=== PATIENT | male | born 1965 | race Caucasian/White ===

== ENCOUNTER 2023-02-18 14:22 | Emergency (ER) | payer BC, SELFPAY ==
[2023-02-18 14:35] VITALS: BP 168/99; PULSE 76; RESP 18; TEMP 36.4; O2SAT 97; BMI 27.6
--- NOTE | 2023-02-18 14:42 | XR_ITS ---
[facility] [place] [id number] Patient Name: GERALDINE MUSA MRN: [id number] date: 1965 Sex: M Assigned Patient Location: ER Current Patient Location: ER Accession/Order Number: [id number] Exam Date: 02/18/2023 14:55 Report Date: 02/18/2023 15:27 At the request of: KATJA HALL Procedure: XR tibia fibula RT 2V EXAM: XR foot RT min 3V, XR ankle RT min 3V, XR tibia fibula RT 2V HISTORY: Dropped log on leg COMPARISON: None. TECHNIQUE: 4 views of the lower leg, ankle 3 views of the foot FINDINGS: IMPRESSION: No visualized fracture, dislocation, subluxation or osseous lesion. Moderate degenerative changes of the patella with full and partial thickness cartilage loss. Degenerative irregularities of the medial and lateral femorotibial compartments. The visualized hindfoot and forefoot articulations are unremarkable. Electronically authenticated by: JOVON ARANDA Date: 02/18/2023 15:27
--- NOTE | 2023-02-18 14:42 | XR_ITS ---
[facility] [place] [facility] [id number] Patient Name: GERALDINE MUSA MRN: [id number] date: 1965 Sex: M Assigned Patient Location: ER Current Patient Location: ER Accession/Order Number: [id number] Exam Date: 02/18/2023 14:55 Report Date: 02/18/2023 15:27 At the request of: KATJA HALL Procedure: XR foot RT min 3V EXAM: XR foot RT min 3V, XR ankle RT min 3V, XR tibia fibula RT 2V HISTORY: Dropped log on leg COMPARISON: None. TECHNIQUE: 4 views of the lower leg, ankle 3 views of the foot FINDINGS: IMPRESSION: No visualized fracture, dislocation, subluxation or osseous lesion. Moderate degenerative changes of the patella with full and partial thickness cartilage loss. Degenerative irregularities of the medial and lateral femorotibial compartments. The visualized hindfoot and forefoot articulations are unremarkable. Electronically authenticated by: JOVON ARANDA Date: 02/18/2023 15:27
[2023-02-18 14:43] VITALS: PULSE 69
--- NOTE | 2023-02-18 14:43 | XR_ITS ---
[facility] [place] [id number] Patient Name: GERALDINE MUSA MRN: [id number] date: 1965 Sex: M Assigned Patient Location: ER Current Patient Location: ER Accession/Order Number: [id number] Exam Date: 02/18/2023 14:55 Report Date: 02/18/2023 15:27 At the request of: KATJA HALL Procedure: XR ankle RT min 3V EXAM: XR foot RT min 3V, XR ankle RT min 3V, XR tibia fibula RT 2V HISTORY: Dropped log on leg COMPARISON: None. TECHNIQUE: 4 views of the lower leg, ankle 3 views of the foot FINDINGS: IMPRESSION: No visualized fracture, dislocation, subluxation or osseous lesion. Moderate degenerative changes of the patella with full and partial thickness cartilage loss. Degenerative irregularities of the medial and lateral femorotibial compartments. The visualized hindfoot and forefoot articulations are unremarkable. Electronically authenticated by: JOVON ARANDA Date: 02/18/2023 15:27
--- NOTE | 2023-02-18 15:32 | ED.LOWEXI1 ---
HPI - Extremity Injury (Lower) General Chief Complaint: Extremity Injury, Lower Stated Complaint: RIGHT FOOT INJURY Time Seen by Provider: 02/18/23 14:39 Source: patient Mode of arrival: walk-in Limitations: physical limitation History of Present Illness HPI Narrative: The patient is coming to the ER after he had a ankle and foot injury when the part of the tree that he was cutting fell on his foot, the patient was able to walk with with difficulty and pain He denies any other injury or any head injury The patient tetanus booster is up-to-date Related Data Previous Rx's Medication Instructions Recorded acetaminophen 650 mg 650 mg PO Q8H PRN pain #20 tabs 02/18/23 tablet,extended release (Tylenol 8 Hour) bacitracin zinc 500 unit/gram 1 applic topical DAILY #14 grams 02/18/23 topical ointment prednisone 20 mg tablet 40 mg PO DAILY 5 days #10 tabs 02/18/23 Allergies Allergy/AdvReac Type Severity Reaction Status Date / Time No Known Drug Allergies Allergy Verified 02/18/23 14:34 Review of Systems ROS Status of ROS 10 or more systems reviewed and unremarkable except as noted in history and below [facility] Social History Smoking status: Current every day smoker Exam Narrative Exam Narrative: Nurses notes and vital signs reviewed and patient is not hypoxic. General: Well-appearing and in no apparent distress. Skin: Warm, dry, no pallor noted. No rash. Head: Normocephalic, atraumatic. Neck: Supple, non-tender. Eye: Pupils are equal, round and EOMI. No scleral icterus. Ears, Nose, Mouth, and Throat: TM are clear, no nasal mucosal hypertrophy. Oral mucosa is moist, no posterior oropharynx erythema, uvula is mid-line Cardiovascular: Regular Rate and Rhythm without murmur, gallop or rub. Respiratory: No accessory muscle use or respiratory distress. Lungs are clear to auscultation, no wheezing, rales or rhonchi Chest Wall: no tenderness Back: No midline thoracic or lumbar vertebral tenderness. No CVA tenderness Musculoskeletal: normal ROM there is edema to the medial aspect of the right ankle and mild abrasions the patient had also edema upon palpation of the foot no tenderness upon palpation over the bony prominences GI: Abdomen is soft, non-distended. Normal bowel sounds. No masses appreciated. No tenderness to palpation. No rebound, guarding, or rigidity noted. Neurological: A&O x4. No cranial nerve dysfunction observed. No truncal ataxia. Moves all extremities. Sensation intact. Psychiatric: Cooperative and interactive. Normal mood and affect. Constitutional Vital Signs, click to edit/add: Last Vital Signs Temp 97.6 F 02/18/23 14:35 Pulse 69 02/18/23 14:43 Resp 18 02/18/23 14:35 BP 168/99 H 02/18/23 14:35 Pulse Ox 97 02/18/23 14:35 O2 Del Method Room Air 02/18/23 14:35 Course Vital Signs Vital signs: Vital Signs Temperature 97.6 F 02/18/23 14:35 Pulse Rate 76 02/18/23 14:35 Respiratory Rate 18 02/18/23 14:35 Blood Pressure 168/99 H 02/18/23 14:35 Pulse Oximetry 97 02/18/23 14:35 Oxygen Delivery Method Room Air 02/18/23 14:35 Temperature 97.6 F 02/18/23 14:35 Pulse Rate 69 02/18/23 14:43 Respiratory Rate 18 02/18/23 14:35 Blood Pressure 168/99 H 02/18/23 14:35 Pulse Oximetry 97 02/18/23 14:35 Oxygen Delivery Method Room Air 02/18/23 14:35 MDM - Extremity Injury (Lower) MDM Narrative Medical decision making narrative: X-ray of the foot tibia as well as the ankle showed no acute significant pathology The patient right now be treated supportively with Didier wrap bacitracin as well as Toradol in the ER and will time to go home with He will be referred to orthopedic as outpatient The patient is to follow up with primary care physician in next 2-3 days or to return to the emergency department should any of the signs or symptoms worsen or new symptoms develop. The patient agrees with the following Diagnosis and Treatment plan and the patient will be discharged home. Discharge Plan Discharge Chief Complaint: Extremity Injury, Lower Clinical Impression: Contusion of foot, Ankle contusion Patient Disposition: Home, Self-Care Time of Disposition Decision: 15:41 Mode of Transportation: Private Vehicle Prescriptions / Home Meds: New prednisone 20 mg tablet 40 mg PO DAILY 5 Days Qty: 10 0RF acetaminophen [Tylenol 8 Hour] 650 mg tablet extended release 650 mg PO Q8H PRN (Reason: pain) Qty: 20 0RF bacitracin zinc 500 unit/gram ointment 1 applic topical DAILY Qty: 14 0RF Instructions: Contusion in Adults (ED) Stand Alone Forms: Portal Instructions Referrals: Thierry Xiong MD [Physician] - 1 week Shaikh Torres MD [Primary Care Provider] - 1 week Discharge Date/Time: 02/18/23 15:56
== END 2023-02-18 15:56 | disposition home or self-care (01) ==
PROVIDERS: Emergency Provider Emergency Medicine; PCP Internal Medicine
DX: S90.31XA Contusion of right foot, initial encounter (principal); S90.01XA Contusion of right ankle, initial encounter; W20.8XXA Other cause of strike by thrown, projected or falling object, initial encounter; F17.210 Nicotine dependence, cigarettes, uncomplicated
CPT/HCPCS: 73590; 73610; 73630; 99283

== ENCOUNTER 2023-02-20 06:30 | Emergency (ER) | payer BC, SELFPAY ==
[2023-02-20 06:37] VITALS: BP 130/83; PULSE 81; RESP 16; TEMP 36.6; O2SAT 98; BMI 15.3
--- NOTE | 2023-02-20 06:45 | PC.NURSE ---
patient states he was getting out of the shower around 530 this morning when he slipped and fell hitting lower part of back and left lower back against tub. denies any other injuries. denies head injury, denies LOC. nothing taken for pain prior to arrival.
--- NOTE | 2023-02-20 07:22 | CT_ITS ---
[place] [id number] Patient Name: GERALDINE MUSA MRN: [id number] date: 1965 Sex: M Assigned Patient Location: ER Current Patient Location: Accession/Order Number: [id number] Exam Date: 02/20/2023 07:41 Report Date: 02/20/2023 08:11 At the request of: MARGARITA MURILLO Procedure: CT lumbar spine wo con EXAMINATION: CT lumbar spine wo con HISTORY: fall, on eliquis COMPARISON: No relevant comparison available. TECHNIQUE: Axial, Coronal, and Sagittal CT images were created without I.V. contrast material. Dose reduction techniques were achieved by using automated exposure control and/or adjustment of mA and/or kV according to patient size and/or use of iterative reconstruction technique. FINDINGS: PARASPINAL AREA: Normal with no visible mass. Moderate degenerative changes of the spine BONES: Fracture of the left posterior 12th rib. Fracture of the left L1 and L2 transverse processes. Moderate diffuse degenerative spondylosis and facet osteoarthropathy DISC LEVELS: Moderate multilevel disc space narrowing with endplate sclerosis. Vacuum disc at L2-L3. Suspected multilevel foraminal stenosis CT/CT lumbar spine wo con IMPRESSION: Acute fractures of the left posterior 12th rib, left L1 and L2 transverse processes Electronically authenticated by: JOVON BIRD Date: 02/20/2023 08:11
--- NOTE | 2023-02-20 07:24 | ED.BACK1 ---
HPI - Back Pain/Injury General Chief Complaint: Back Pain/Injury Stated Complaint: BACK PAIN/FALL Time Seen by Provider: 02/20/23 07:20 History of Present Illness HPI Narrative: 57-year-old male presents to the emergency department for pain in his lower back. This morning he fell in the shower and hit his lower back particularly on the left side on the tub. He is on Eliquis because of blood clots. He didn't hit his head or sustain any other injury. Movement makes it worse. There is no radiation. Related Data Previous Rx's Medication Instructions Recorded acetaminophen 650 mg 650 mg PO Q8H PRN pain #20 tabs 02/18/23 tablet,extended release (Tylenol 8 Hour) bacitracin zinc 500 unit/gram 1 applic topical DAILY #14 grams 02/18/23 topical ointment prednisone 20 mg tablet 40 mg PO DAILY 5 days #10 tabs 02/18/23 hydrocodone 7.5 mg-acetaminophen 1 tab PO Q6H PRN pain #30 tabs 02/20/23 325 mg tablet Allergies Allergy/AdvReac Type Severity Reaction Status Date / Time No Known Drug Allergies Allergy Verified 02/20/23 06:41 Review of Systems ROS Narrative A ten point review of systems is negative except as noted above. PFSH PFSH Social History Smoking status: Current every day smoker Exam Narrative Exam Narrative: Nurses note and vital signs reviewed and patient is not hypoxic. General: The patient appears well and in no apparent distress. Patient is resting comfortably on cart. Skin: Warm, dry, no pallor noted. There is no rash noted. Head: Normocephalic, atraumatic Eye: Normal conjunctiva, no drainage Ears, Nose, Mouth, and Throat: oral mucosa is moist. Nares patent. Cardiovascular: Regular Rate and Rhythm Respiratory: Patient is in no distress, no accessory muscle use, lungs are clear to auscultation, no wheezing, rales or rhonchi Back: cervical and thoracic spines are nontender. He has some swelling just to the left of midline in the lower back and there is some tenderness. Skin intact. GI: soft and nontender Musculoskeletal: The patient has no evidence of calf tenderness, no pitting edema, symmetrical pulses noted bilaterally Neurological: A&O, normal speech Psychiatric: Cooperative Constitutional Vital Signs, click to edit/add: Last Vital Signs Temp 97.8 F 02/20/23 06:37 Pulse 81 02/20/23 06:37 Resp 16 02/20/23 06:37 BP 130/83 02/20/23 06:37 Pulse Ox 98 02/20/23 06:37 O2 Del Method Room Air 02/20/23 06:37 Course Vital Signs Vital signs: Vital Signs Temperature 97.8 F 02/20/23 06:37 Pulse Rate 81 02/20/23 06:37 Respiratory Rate 16 02/20/23 06:37 Blood Pressure 130/83 02/20/23 06:37 Pulse Oximetry 98 02/20/23 06:37 Oxygen Delivery Method Room Air 02/20/23 06:37 Temperature 97.8 F 02/20/23 06:37 Pulse Rate 81 02/20/23 06:37 Respiratory Rate 16 02/20/23 06:37 Blood Pressure 130/83 02/20/23 06:37 Pulse Oximetry 98 02/20/23 06:37 Oxygen Delivery Method Room Air 02/20/23 06:37 MDM - Back Pain/Injury MDM Narrative Medical decision making narrative: two lumbar transverse process fractures are identified as well as a rib fracture. Findings are discussed with the patient and the nurse practitioner for Dr. Xiong. Follow-up is arranged for six days from today. He is provided [place] for pain. Treatment diagnosis and follow-up were discussed with the patient. Differential Diagnosis Differential diagnosis: Likely strain of lumbar region and other (lumbar fracture, contusion) Imaging Data . CT lumbar spine: Radiologist's impression: EXAMINATION: CT lumbar spine wo con HISTORY: fall, on eliquis COMPARISON: No relevant comparison available. TECHNIQUE: Axial, Coronal, and Sagittal CT images were created without I.V. contrast material. Dose reduction techniques were achieved by using automated exposure control and/or adjustment of mA and/or kV according to patient size and/or use of iterative reconstruction technique. FINDINGS: PARASPINAL AREA: Normal with no visible mass. Moderate degenerative changes of the spine BONES: Fracture of the left posterior 12th rib. Fracture of the left L1 and L2 transverse processes. Moderate diffuse degenerative spondylosis and facet osteoarthropathy DISC LEVELS: Moderate multilevel disc space narrowing with endplate sclerosis. Vacuum disc at L2-L3. Suspected multilevel foraminal stenosis IMPRESSION: Acute fractures of the left posterior 12th rib, left L1 and L2 transverse processes Electronically authenticated by: JOVON BIRD Date: 02/20/2023 08:11 Discharge Plan Discharge Chief Complaint: Back Pain/Injury Clinical Impression: Closed rib fracture, Fracture of lumbar spine Patient Disposition: Home, Self-Care Time of Disposition Decision: 08:42 Condition: Good Mode of Transportation: Private Vehicle Prescriptions / Home Meds: New hydrocodone-acetaminophen 7.5-325 mg tablet 1 tab PO Q6H PRN (Reason: pain) Qty: 30 0RF No Action prednisone 20 mg tablet 40 mg PO DAILY 5 Days Qty: 10 0RF acetaminophen [Tylenol 8 Hour] 650 mg tablet extended release 650 mg PO Q8H PRN (Reason: pain) Qty: 20 0RF bacitracin zinc 500 unit/gram ointment 1 applic topical DAILY Qty: 14 0RF Instructions: Rib Fracture (ED) Additional Instructions: see Dr. Xiong at 9 AM February 26 Stand Alone Forms: Portal Instructions Referrals: Shaikh Torres MD [Primary Care Provider] - 1 week
== END 2023-02-20 08:56 | disposition home or self-care (01) ==
PROVIDERS: Emergency Provider Emergency Medicine; PCP Internal Medicine
DX: S22.32XA Fracture of one rib, left side, initial encounter for closed fracture (principal); S32.019A Unspecified fracture of first lumbar vertebra, initial encounter for closed fracture; S32.029A Unspecified fracture of second lumbar vertebra, initial encounter for closed fracture; W18.2XXA Fall in (into) shower or empty bathtub, initial encounter; F17.210 Nicotine dependence, cigarettes, uncomplicated
CPT/HCPCS: 72131; 99284

== ENCOUNTER 2023-02-26 10:21 | Outpatient (OUT) | payer BC, SELFPAY ==
--- NOTE | 2023-02-26 10:27 | XR_ITS ---
[address] [id number] Patient Name: GERALDINE MUSA MRN: [id number] date: 1965 Sex: M Assigned Patient Location: [facility] Current Patient Location: [facility] Accession/Order Number: [id number] Exam Date: 02/26/2023 10:30 Report Date: 02/26/2023 12:45 At the request of: BINU SANCHEZ Procedure: XR lumbar spine min 4V Exam: Radiographs: XR lumbar spine min 4V Reason for exam: Lumbar pain M54.50 Comparison: CT scan dated 02/20/2023 XR/XR lumbar spine min 4V IMPRESSION: No radiographically evident lumbar spine fractures. Grade 1 retrolisthesis of L1 on L2, L2 on L3 and L3-L4. Degenerative changes in the lumbar spine with multilevel mild disc space narrowing. Remainder unremarkable. Electronically authenticated by: DORCAS CID Date: 02/26/2023 12:45
== END 2023-02-26 10:22 | disposition home or self-care (01) ==
LOC: RAD 10:23
PROVIDERS: PCP Internal Medicine; Visit Provider Orthopaedic Surgery
DX: M54.50 Low back pain, unspecified (principal)
CPT/HCPCS: 72110

== ENCOUNTER 2023-04-30 16:08 | Outpatient (OUT) | payer BC, SELFPAY ==
[2023-04-30 16:59] LABS: Alanine Aminotransferase 37 U/L (16-63); Albumin Globulin Ratio 1.1; Albumin Level 3.9 g/dL (3.4-5.0); Alkaline Phosphatase 130 U/L (46-116); Anion Gap 12.9; Aspartate Amino Transferase 22 U/L (15-37); BUN Creatinine Ratio 14.6; Bilirubin Total 0.9 mg/dL (0.2-1.0); Calcium 8.8 mg/dL (8.5-10.1); Chloride 104 mmol/L (98-107); Estimated GFR (African America >60 (>=60); Estimated GFR (Non-African Ame >60 (>=60); Globulin 3.4 g/dL; Glucose 88 mg/dL (74-106); Potassium 3.9 mmol/L (3.5-5.1); Sodium 142 mmol/L (136-145); Total Protein 7.3 g/dL (6.4-8.2)
== END 2023-04-30 16:09 | disposition home or self-care (01) ==
LOC: LAB 16:08
PROVIDERS: PCP Internal Medicine; Visit Provider Internal Medicine
DX: I10 Essential (primary) hypertension (principal)
CPT/HCPCS: 36415; 80053

== ENCOUNTER 2024-05-25 16:04 | Observation (INO) | payer BC, SELFPAY ==
[2024-05-25] VITALS (23 sets, daily range): BP systolic 133–163; BP diastolic 74–94; PULSE 70–100; TEMP 36.6–37.1; O2SAT 90–97; BMI 28.2; BMI 28.6
--- OUTSIDE RECORDS SUMMARY | 2024-05-25 16:16 | XMS_ITS | CCD ---
Author Organization [facility] Care Team Providers Care Dishwasher Preparer Name Role Phone SHAIKH TORRES Primary Care Physician REQUEST, NONE LISTED Primary Care Unavaila liza SULLIVAN ., HUAN DURHAM Consulting UnavailMARGARITA Stanford Admitting Unavailable MARGARITA MURILLO Attending Unavailable ANGEL GABRIEL Consulting Unavailable FAWWAD, ALEJANDRO H Consulting Unavailable FAWWAD, ALEJANDRO H Attending Unavailable FAWWAD, ALEJANDRO H Admitting Unavailable FAWWAD, ALEJANDRO H Primary Care Unavailable FAWWAD, ALEJANDRO H Primary Care Unavailable FAWWAD, ALEJANDRO H Consulting Unavailable FAWWAD, ALEJANDRO H Attending Unavailable FAWWAD, ALEJANDRO H Admitting Unavailable FAWWAD, ALEJANDRO Primary Care Unavailable WALLYAMAraceli Admitting Unavailable SALAMAraceli Attending Unavailable SALAM Charles Referring Unavailable FAWWAD, ALEJANDRO Primary Care Unavailable Arlen Littlejohn Attending Unavailable FAWWAD, Attending Unavailable FAWWAD, ALEJANDRO Attending Unavailable Medications Current Medications Medication Drug Class(es) Dates Sig (Normalized) Sig (Original) Eliquis (2 sources) Factor Xa Inhibitor Start: 08-07-2022 Eliquis Refills(s) 0, Blood Thinner Start Date: 08/07/22 Status: Ordered Start: 08-07-2022 Eliquis Refill s(s) 0 Start Date: 08/07/22 Status: Ordered losartan potassium 100 mg oral tablet (2 sources) Angiotensin 2 Receptor Devyn Start: 08-07-2022 losartan 100 mg Tab Refills(s) 0, High blood pressure Start Date: 08/07/22 Status: Ordered rosuvastatin calcium 10 mg oral tablet (2 sources) HMG-CoA Reductase Inhibitor Start: 08-07-2022 rosuvastatin 10 mg T ab Refills(s) 0, High cholesterol Start Date: 08/07/22 Status: Ordered Completed/Discontinued Medications Medication Drug Class(es) Dates Sig (Normalized) Sig (Original) polyethylene glycol 3350 923615 mg / potassium chloride 1480 mg / sodium bicarbonate 5720 mg / sodium chloride 05573 mg powder for oral solution (1 source) Osmotic Laxative Start: 08-07-2022 NuLYTELY Day oral powder for reconstitution See Instructions, 1 EA, Refill(s) 0, Prior to colonoscopy., [employer] #72, 187.9, cm, 08/07/22 15:27:00 EST, Height/Length Dosing, 101.6, kg, 08/07/22 15:27:00 EST, Weight Dosing Start Date: 08/07/22 Status: Ordered Problems Active Problems Problem Classification Problem Date Documented Da te Episodic/Chronic Disorders of lipid metabolism (4 sources) Hyperlipidemia, unspecified; Translations: [HYPERLIPIDEMIA UNSPECIFIED] Onset: 09-11-2022 Chronic Essential hypertension (4 sources) Essential (primary) hypertension; Translations: [ESSENTIAL PRIMARY HYPERTENSION] Onset: 04-17-2022 Chronic Other screening for suspected conditions (not mental disorders or infectious disease) (5 sources) Screening for malignant neoplasm of colon done; Translations: [Encounter for screening for malignant neoplasm of colon] Onset: 04-22-2022 Episodic Unclassified (2 sources) Patient encounter status 08-07-2022 Unclassified (1 source) Acute embolism and thrombosis of right peroneal vein; Translations: [ACUTE EMBOLS AND THROMBOS RT PERONL VN] Onset: 01-17-2022 Past or Other Problems Problem Classification Problem Date Documented Da te Episodic/Chronic Other connective tissue disease (3 sources) Other specified soft tissue disorders; Translations: [OTHER SPEC SOFT TISSUE DISORDERS] Onset: 01-16-2022 Episodic Phlebitis; thrombophlebitis and thromboembolism (2 sources) Acute embolism and thrombosis of right popliteal vein; Translations: [Acute embolism and thrombosis of right femoral vein] Onset: 01-17-2022 Episodic Results Test Name Value Interpretation Reference Range Facility [facility] 10-23-2022 Consent [id number]#1. 00CD:127 Normal [facility] [place] Discharge Instructionson Discharge Instructions [id number]. 00CD:127 Normal [facility] Main OR Intraoperative Recor don 10-23-2022 Main OR Intraoperative Record IntraOp Document Type FT Summary Primary Physician: Araceli AGGARWAL MD Finalized Date/Time: 10/23/22 07:35:16 Pt. Name: DIMPLE GERALDINE Kennedy/Sex: 1965 Male Med Rec #: [id number] Physician: Araceli AGGARWAL MD Financial #: [id number] Pt. Type: O Room/Bed: / Admit/Disch: 10/20/22 06:58:07 - 10/20/22 23:59:59 Institution: Case Times FT Entry 1 Patient Times In Room 10/20/22 08:10:00 Out Room 10/20/22 08:28:00 Procedure Times Start 10/20/22 08:13:00 Stop 10/20/22 08:26:00 Anesthesia Times Start 10/20/22 08:10:00 Stop 10/20/22 08:28:00 Time at [place] 10/20/22 08:16:00 Last Modified By: Maribel GANNON, Kassidy 10/20/22 08:28:26 General Comments: 10/23/22 Chart opened to review and send charges [facility]oth CSFA Case Attendance FT Entry 1 Entry 2 Entry 3 Case Attendee Ilya Rendon DO, Omkar López RN, Deyanira Yin Role Performed Anesthesiologist of Dumper Operator - Primary Scrub - Primary Record Time In 10/20/22 08:10:00 10/20/22 08:10:00 10/20/22 08:10:00 Time Out 10/20/22 08:28:00 10/20/22 08:28:00 10/20/22 08:28:00 Procedure COLONOSCOPY(.) COLONOSCOPY(.) COLONOSCOPY(.) Comments Last Modified By: Maribel GANNON, Kassidy López RN, Kassidy Montesinos RN 10/20/22 08:28:28 10/20/22 08:28:28 10/20/22 08:28:28 Entry 4 Entry 5 Case Attendee Funmi Villa MD, Maher Role Performed Staff - Other Surgeon - Primary Time In 10/20/22 08:10:00 10/20/22 08:10:00 Time Out 10/20/22 08:28:00 10/20/22 08:28:00 Procedure COLONOSCOPY(.) COLONOSCOPY(.) Comments help in room Last Modified By: Kassidy López RN, RN, Angela 10/20/22 08:28:28 10/20/22 08:28:28 Perioperative Protocols FT Pre-Care Text: Implements protective measures prior to operative or invasive procedure, confirms identity before the operative or invasive procedure, verifies operative procedure, surgical site, and laterality Entry 1 Procedure(s) COLONOSCOPY(.) Patient Identity Birthday, ID Band Verified (select at Check, Patient least 2): Participation Consents / H and P Anesthesia Consent, Operative Site N/A Verified HandP, Surgery/Procedure Marking Verified Consent Surgical Site No Laterality Verified n/a Verified Procedure Verified Yes Correct Patient Yes Position Verified Availability Equipment, Medication Prep Dry n/a Verified (If Applicable) PreOp Antibiotic No Time Out Omkar Caraballo Jr, DO, Given Participants Kassidy López RN, SALAM MD, Elias Charles Kirstyn K, Funmi Villa Time Out Complete 10/20/22 08:14:00 Outcomes Met? Yes Last Modified By: Kassidy López RN 10/20/22 08:13:23 Post-Care Text: The patient is free from signs and symptoms of injury caused by extraneous objects Allergy Information FT Pre-Care Text: Verifies allergies Entry 1 Allergies Reviewed? Yes Allergies Reviewed Self/Patient With Outcomes Met? Yes Last Modified By: Kassidy López RN 10/20/22 07:41:28 Post-Care Text: The patient received appropriate medication(s) safely administered during the perioperative period Surgical Procedures FT Entry 1 Procedure Description Procedure COLONOSCOPY Modifiers . Surgeon Description COLONOSCOPY with ascending colon polypectomy Primary Procedure Yes Primary Surgeon Araceli AGGARWAL MD Start 10/20/22 08:13:00 Stop 10/20/22 08:26:00 Anesthesia Type General Surgical Service Gastroenterology Wound Class 2 - Clean-Contaminated Last Modified By: Kassidy López RN 10/20/22 08:28:34 General Case Data FT Pre-Care Text: Classifies surgical wound, implements aseptic technique, initiates traffic control Entry 1 Case Information OR ENDO 1 FT Case Level Level 2 Wound Class 2 - Clean-Contaminated Specialty Gastroenterology ASA Class 2 Preop Diagnosis SCREENING FOR COLON Postop Same As Preop No CANCER Postop Diagnosis Ascending colon polyp Outcomes Met? Yes and internal hemorrhoids Last Modified By: Kassidy López RN 10/20/22 08:28:08 Post-Care Text: The patient is free from signs and symptoms of infection Skin Assessment (Pre Procedure) FT Pre-Care Text: Implements protective measures to prevent skin/ tissue injury due to thermal or mechanical sources Evaluates for signs and symptoms of physical injury to skin and tissue Entry 1 Skin Integrity Intact, [place], Warm, and Skin Abnormality No Dry Outcomes Met? Yes Last Modified By: Kassidy López RN 10/20/22 07:41:56 Post-Care Text: The patient is free from signs and symptoms of injury caused by extraneous objects Patient Positioning FT Pre-Care Text: Identifies physical alterations that require additional precautions for procedure-specific positioning, verifies presence of prosthetics or corrective devices, positions the patient, evaluates the patient for signs and symptoms of injury as a result of positioning Entry 1 Procedure COLONOSCOPY(.) Body Position Lateral, right side up Feet Uncrossed? Yes Left Arm Position Resting at Si (more content not included)... Normal [facility] [place] Progress Note-Physicianon Progress Note-Physician Patient: GERALDINE MUSA Age: 57 years Sex: Male : 1965 Associated Diagnoses: None Author: Omkar Caraballo Jr, DO Preoperative Information Anesthesia Preop Info: Time patient last ate or drank 10/20/2022 00:00:00. Anesthesia history: Patient history: None. Family history+: None. Informed consent: Signed by patient. Re-evaluation prior to induction: Initial evaluation reviewed: No significant change. Review of Systems Eye: Negative except as documented in history of present illness. Ear/Nose/Mouth/Throat: Negative except as documented in history of present illness. Respiratory: Negative except as documented in history of present illness. Cardiovascular: Negative except as documented in history of present illness. Musculoskeletal: Negative except as documented in history of present illness. Neurologic: Negative except as documented in history of present illness. Health Status Allergies: Allergic Reactions (Selected) No Known Allergies No Known Medication Allergies Problem list: All Problems Screen for colon cancer / SNOMED CT [id number] / Confirmed Histories Procedure history: No active procedure history items have been selected or recorded. Social History Social & Psychosocial Habits Tobacco 08/07/2022 Tobacco Use: Never (less than 100 in l Smokeless tobacco use: Current vaping or e-cigar Type: Vaping . Physical Examination Airway: Mallampati classification: II (soft palate, fauces, uvula visible). Respiratory: adequate air exchange. Cardiovascular: Regular rhythm. Plan [place] [employer]esthesiologists (ASA) physical status classification: Class II. Anesthetic Preoperative Plan: Anesthesia General. [facility] Comment on above: Result Comment: Elec tronically Signed By: Omkar Caraballo Jr, DO\.br\Date and Time Signed: 10/21/22 09:06 EDT Progress Note-Physician Patient: GERALDINE MUSA Age: 57 years Sex: Male : 1965 Associated Diagnoses: None Author: Omkar Caraballo Jr, DO Postoperative Information Postoperative disposition: Postoperative disposition: To PACU. Optimetrix number: Optimetrix number [phone]. Anesthetic utilized: General. Health Status Allergies: Allergic Reactions (Selected) No Known Allergies No Known Medication Allergies Physical Examination Vital Signs 10/20/2022 8:55 EDT Heart Rate Monitored 64 bpm Respiratory Rate Monitored 20 br/min Systolic Blood Pressure 145 mmHg HI Diastolic Blood Pressure 90 mmHg Mean Arterial Pressure, Cuff 108 mmHg SpO2 96 % 10/20/2022 8:45 EDT Heart Rate Monitored 80 bpm Respiratory Rate Monitored 12 br/min Systolic Blood Pressure 140 mmHg Diastolic Blood Pressure 98 mmHg HI SpO2 97 % 10/20/2022 8:40 EDT Heart Rate Monitored 64 bpm Respiratory Rate Monitored 19 br/min Systolic Blood Pressure 135 mmHg Diastolic Blood Pressure 86 mmHg Mean Arterial Pressure, Cuff 102 mmHg SpO2 96 % 10/20/2022 8:35 EDT Heart Rate Monitored 72 bpm Respiratory Rate Monitored 18 br/min Systolic Blood Pressure 129 mmHg Diastolic Blood Pressure 76 mmHg Mean Arterial Pressure, Cuff 94 mmHg SpO2 95 % 10/20/2022 8:30 EDT Temperature Temporal Artery 36.4 DegC Heart Rate Monitored 75 bpm Respiratory Rate Monitored 18 br/min Systolic Blood Pressure 131 mmHg Diastolic Blood Pressure 79 mmHg Blood Pressure Location Left arm Mean Arterial Pressure, Cuff 96 mmHg SpO2 96 % Pain Assessment: Controlled. General: Awake, Alert, Appropriate. Respiratory: Adequate air exchange. Cardiovascular: Stable, Normal peripheral perfusion. Neurological: Normal sensory function, Normal motor function. Assessment Anesthetic outcome No anesthetic complications noted. Adequate pain relief. able to void without difficulty, able to ambulate with assist, tolerating PO intake, no N/V. Review / Management Condition: Stable. Plan Transfer/Discharge: Transfer/Discharge Discharge when meets criteria ( To home ). Normal [facility] Comment on above: Result Comment: Elec tronically Signed By: Omkar Caraballo Jr, DO\.jitendra\Date and Time Signed: 10/21/22 09:05 EDT Consent for Treatmenton 10-09 Consent for Treatment [id number] 0CD:127 Normal [facility] [place] Discharge Instructionson Discharge Instructions SARAIGilberto GERALDINE :1965 Visit Date:10/20/2022 Inpatient Discharge Instructions Your Care Team Admitting Physician - Araceli AGGARWAL MD Referring Physician - Araceli AGGARWAL MD Reason for Your Visit SCREENING FOR COLON CANCER Your Diagnosis Encounter for screening for malignant neoplasm of rectum Screening for colorectal cancer Tests Performed Pathology Tissue Exam -- Results Pending -- Please visit your patient portal for your results or contact your primary care physician. This Is Your Medications List apixaban (Eliquis) losartan (losartan 100 mg Tab) rosuvastatin (rosuvastatin 10 mg Tab) Discharge Vitals Temperature (Temporal Artery) 36.4 ?C Heart Rate (Monitored) 75 Respiratory Rate 18 Blood Pressure 131/79 Height 187.9 cm Weight 101.6 kg BMI 28.78 What to do next Instructions From Your Doctor Event Name Event Result Discharge Instructions Freetext Restart Eliquis today Discharge Activity Resume normal activities in 24 hours Discharge Restrictions No driving for 24 hrs, Do not operate machinery or tools, Do not make important decisions for 24 hours Discharge Diet(s) Regular Pharm[facility] [place] Discharge Instructions Discharge Instructions New Follow Up Appointments after Discharge Follow Up with MARIEL WILLIAM, TAMMIE Charles, [facility] When: Within 1 to 2 weeks Comments: Office will call with date and time of follow-up appt. Where: [address] [place] [address] Follow Up with Araceli AGGARWAL When: Comments: Office will call date and time of follow-up appt. Where: [address] [place] [address] Business (1) Medications What When Instructions Next Dose Unchanged apixaban (Eliquis) Unchanged losartan (losartan 100 mg Tab) Unchanged rosuvastatin (rosuvastatin 10 mg Tab) Test Results No qualifying data available. Allergies No Known Allergies No Known Medication Allergies Problems Ongoing - Any problem that you are currently receiving treatment for. Screen for colon cancer Education Materials Colonoscopy Care After Surgery Please read the instructions outlined below and refer to this sheet in the next few weeks. These discharge instructions provide you with general information on caring for yourself after you leave the hospital. Your doctor may also give you specific instructions. While your treatment has been planned according to the most current medical practices available, unavoidable complications occasionally occur. If you have any problems or questions after discharge, please call your doctor. ACTIVITY You may resume your regular activity, but move at a slower pace for the next 24 hours. Take frequent rest periods for the next 24 hours. Walking will help get rid of the air and reduce the bloated feeling in your abdomen (belly). No driving for 24 hours (because of the anesthesia (medicine) used during the test). You may shower. Do not sign any important legal documents or operate any machinery for 24 hours (because of the anesthesia used during the test). NUTRITION Drink plenty of fluids. You may resume your normal diet as instructed by your doctor. Begin with a light meal and progress to your normal diet. Heavy or fried foods are harder to digest and may make you feel nauseated (sick to your stomach). Avoid alcoholic beverages for 24 hours or as instructed. MEDICATIONS You may resume your normal medications unless your doctor tells you otherwise. WHAT YOU CAN EXPECT TODAY Some feelings of bloating in the abdomen. Passage of more gas than usual. Spotting of blood in your stool or on the toilet paper. FOLLOW-UP Your doctor will discuss the results of your test with you. SEEK IMMEDIATE MEDICAL ATTENTION IF: There is more than a spotting of blood in your stool. There is abdominal distention (your abdomen is swollen). There is vomiting. You have a temperature over 101.5 F. There is abdominal pain or discomfort that is severe or gets worse throughout the day. Common Emergency Awareness Tips IS IT A STROKE? Act FAST and Check for these signs: FACE Does the face look uneven? ARM Does one arm drift down? SPEECH Does their speech sound strange? TIME Call at any sign of stroke Heart Attack Signs Chest discomfort: Most heart attacks involve discomfort in the center of the chest and lasts more than a few minutes, or goes away and comes back. It can feel like uncomfortable pressure, squeezing, fullness or pain. Discomfort in upper body: Symptoms can include pain or discomfort in one or both arms, back, neck, jaw or stomach. Shortness of breath: With or without discomfort. Other signs: Breaking out in a cold sweat, nausea, or lightheaded. Remember, MINUTES DO MATTER. If you experience any of these heart attack warning signs, call to (more content not included)... Normal [facility] [place] Comment on above: Result Comment: Elec tronically Signed By: Edson GANNON, Rosa\.br\Date and Time Signed: 10/20/22 08:38 EDT Endoscopic Procedure Report - Otheron 10-20-2022 Endoscopic Procedure Report - Other Patient: GERALDINE MUSA Age: 57 years Sex: Male : 1965 Associated Diagnoses: None Author: Araceli AGGARWAL MD Pre-Procedure Procedure Date 10/20/2022 08:28:00 . Procedure Type: Colonoscopy with removal of tumor(s), polyp(s), or other lesion(s) by cold snare technique. Procedure provider Performed by Araceli Aggarwal MD. Current history and physical Documented on chart. Colorectal neoplasm risk assessment Average risk. Informed Consent After discussing the rationale, risks and benefits, and alternatives to this procedure, the patient provided signed consent for the procedure. Pre-procedure diagnosis: Age 50 years or over. Medications Anticoagulant/antiplat elet None. ASA Classification: Class II. . Procedure The procedure was performed in the hospital. Rectal exam was performed and was normal with no masses palpated. The patient was positioned in the left lateral decubitus position and a digital rectal exam was performed.. Endoscope type used was an adult-size. The endoscope was lubricated then introduced through the anus. The scope was advanced to the cecum verified by photographing the appendiceal orifice, verified by photographing the ileocecal valve, verified by transillumination. No difficulties encountered during the procedure. The bowel preparation quality was adequate (see polyps greater than or equal to 6 millimeters). The patient tolerated the procedure well. Findings 1. Diminutive polyp, 2 mm, in the ascending, removed completely with cold snare 2. Small nonbleeding internal hemorrhoids Images Procedure images: [id number]__ [id number]__ [id number]__ [id number] . Post-Procedure Complications: none. Estimated blood loss: none. Specimens: sent to pathology. Devices/ implants: none left in place. Impression and Plan 1. Diminutive polyp, 2 mm, in the ascending, removed completely with cold snare 2. Small nonbleeding internal hemorrhoids Recommendations: Repeat colonoscopy:: Pending pathology results, 7 yrs. Follow-up:: Clinic follow-up in 1-2 weeks. Diet:: Resume previous diet. Medication resumption:: Continue current medications. Return to activities:: After 24 hours. Normal [facility] [place] Comment on above: Result Comment: Elec tronically Signed By: MARIEL WILLIAM, Araceli\.br\Date and Time Signed: 10/20/22 08:28 EDT Other Comment: Anna gomez Attachment - attachment storage system not supported [id number] Can be viewed in source systemMissing Attachment - attachment storage system not supported [id number] Can be viewed in source systemMissing Attachment - attachment storage system not supported [id number] Can be viewed in source system Inpatient Patient Summaryon 10-20-2022 Inpatient Patient Summary [place] [id number] [facility] Clinical Discharge Instructions PERSON INFORMATION Name: GERALDINE MUSA PHYSICIANS Admitting Physician: Araceli AGGARWAL MD Attending Physician: Araceli AGGARWAL MD PCP: SHAIKH TORRES Discharge Diagnosis: Encounter for screening for malignant neoplasm of rectum; Screening for colorectal cancer Comment: PATIENT EDUCATION INFORMATION Instructions: Medication Leaflets: Follow up: MEDICATION LIST Medications to Continue with No Changes Other Medications apixaban (Eliquis) losartan (losartan 100 mg Tab) rosuvastatin (rosuvastatin 10 mg Tab) Comment: Normal [facility] Main OR PACU I Recordon 10-09 Main OR PACU I Record PACU Phase I Docum ent Type FT Summary Primary Physician: Araceli AGGARWAL MD Finalized Date/Time: 10/20/22 14:32:06 Pt. Name: GERALDINE MUSA /Sex: 1965 Male Med Rec #: [id number] Physician: Araceli AGGARWAL MD Financial #: [id number] Pt. Type: O Room/Bed: / Admit/Disch: 10/20/22 06:58:07 - Institution: Case Times PACU I FT Pre-Care Text: Identifies barriers to communication and implements measures to provide psychological support Develops individualized plan of care, and ensures continuity of care Maintains patient's dignity and privacy, and maintains patient confidentiality Identifies and reports philosophical, cultural, and spiritual beliefs and values Identifies individual values and wishes concerning care Implements aseptic technique, and administers prescribed antibiotic therapy and immunizing agents as ordered Evaluates postoperative tissue perfusion Implements thermoregulation measures, and monitors body temperature Evaluates postoperative respiratory status Evaluates postoperative cardiac status Evaluates postoperative neurological status Assesses pain control, collaborated in initiating patient-controlled analgesia and implements alternative methods of pain control Verifies allergies, administers prescribed medications and solutions, evaluates response to medications Entry 1 In PACU I 10/20/22 08:30:00 Discharge from PACU 10/20/22 09:00:00 I Outcomes Met? Yes Last Modified By: Rosa Sandhu RN 10/20/22 14:31:33 Post-Care Text: The patient demonstrates knowledge of the expected response to the operative or invasive procedure The patient's care is consistent with the individualized perioperative plan of care The patient's right to privacy is maintained The patient's value system, lifestyle, ethnicity, and culture are considered, respected, and incorporated into the perioperative plan of care The patient participates in decisions affecting his or her perioperative plan of care The patient is free from signs and symptoms of infection The patient has wound/tissue perfusion consistent with or improved from baseline levels established preoperatively The patient is at or returning to normothermia at the conclusion of the immediate postoperative period The patient's respiratory function is consistent with or improved from baseline levels established preoperatively The patient's cardiovascular status is consistent with or improved from baseline levels established preoperatively The patient's cardiovascular status is consistent with or improved from baseline levels established preoperatively The patient demonstrates and/or reports adequate pain control throughout the perioperative period The patient received appropriate medication(s), safely administered during the perioperative period Acuity Level PACU I FT Entry 1 Start Time 10/20/22 08:30:00 Stop Time 10/20/22 09:00:00 Acuity Level Acuity Level I Last Modified By: Rosa Sandhu RN 10/20/22 14:32:01 Finalized By: Rosa Sandhu RN Document Signatures Signed By: Rosa Sandhu RN 10/20/22 14:32 Normal [facility] Main OR Preoperative Recordo n 10-20-2022 Main OR Preoperative Record Holding Area Document Type FT Summary Primary Physician: Araceli AGGARWAL MD Finalized Date/Time: 10/20/22 07:20:42 Pt. Name: DIMPLEGERALDINE/Sex: 1965 Male Med Rec #: [id number] Physician: Araceli AGGARWAL MD Financial #: [id number] Pt. Type: O Room/Bed: / Admit/Disch: 10/20/22 06:58:07 - Institution: Case Times Holding FT Pre-Care Text: Verifies consent for planned procedure, identifies individual values and wishes concerning care, includes family members in perioperative teaching Secures patient's records' belongings, and valuables, maintains patient's dignity and privacy, and maintains patient confidentiality Entry 1 In Holding 10/20/22 07:10:00 Outcomes Met? Yes Last Modified By: Billie Schmitt RN 10/20/22 07:19:19 Post-Care Text: The patient participates in decisions affecting his or her perioperative plan of care The patient's right to privacy is maintained Surgery Checklist FT Entry 1 Patient Birthday, ID Band Procedure History and Physical, Identification: Check, Patient Verification: Surgical Consent, With Participation Family, With Patient NPO after Midnight: Yes Personal Items: Jewelry Personal Items x1 ring, clothes Limitations: no Comment: Complaints of Pain: No Pain Comment: no Operative Site n/a Marked By: n/a Marking: Availability Equipment Verified: Does Patient Smoke Yes If Yes to Smoking. vapes daily Cigars or Cigarettes. How much per day? Patient states Yes Comment - Adult Rosa- postop adult Supervision supervision available Case Cancelled in No Holding Area see comments below for reason Last Modified By: Billie Schmitt RN 10/20/22 07:20:37 General Comments: 100% prep in last night, patient tolerated well, last bowel movement clear yellow./JAGDEEP ZAIDI Finalized By: Billie Schmitt RN Document Signatures Signed By: Billie Schmitt RN 10/20/22 07:20 Normal [facility] Monitor Recordon 10-20-2022 Monitor Record [id number]. 00CD:127 Normal [facility] Monitor Record [id number]. 00CD:127 Normal [facility] Outpatient Surgery Discharge Instructionon 10-20-2022 Outpatient Surgery Discharge Instruction [address] [address] Patient Discharge Instructions PERSON INFORMATION Name: GERALDINE MUSA Date of : 1965 Current Date: 10/20/2022 08:28:01 PHYSICIANS Admitting Physician: MARIEL WILLIAM, Charles Discharge Diagnosis: Encounter for screening for malignant neoplasm of rectum; Screening for colorectal cancer GERALDINE MUSA has been given the following list of follow-up instructions, prescriptions, and patient education materials: PATIENT FOLLOW-UP INFORMATION Diet: Regular Discharge Activity: Resume normal activities in 24 hours Discharge Restrictions: No driving for 24 hrs, Do not operate machinery or tools, Do not make important decisions for 24 hours IF UNABLE TO CONTACT YOUR PHYSICIAN AND YOU FEEL IT IS AN EMERGENCY, GO TO THE NEAREST EMERGENCY ROOM OR CALL 911 DIMPLE Mckenzie JOHN, have received the attached patient education materials/instructions and have verbalized understanding: May we do a follow up call? Yes No I was present when discharge instructions were given Patient Signature Date Clinican/Nurse Signature ___ Date Follow up: Pharmacy Information: [facility] [place] You may receive a survey from [employer] asking you to rate your care experience. Your feedback is important and will help us understand what we do well and how we can improve the quality of care we provide to you, your loved ones and our community. It?s an honor to serve you. Thank you for choosing [facility] HERE ARE THE MEDICATION CHANGES THAT OCCURRED DURING YOUR HOSPITAL STAY Medications to Continue with No Changes Other Medications apixaban (Eliquis) losartan (losartan 100 mg Tab) rosuvastatin (rosuvastatin 10 mg Tab) PATIENT EDUCATION INFORMATION Instructions: Medication Leaflets: Normal [facility] Patient Education - Texton 0 10-20-2022 Patient Education - Text Colonoscopy Care After Surgery Please read the instructions outlined below and refer to this sheet in the next few weeks. These discharge instructions provide you with general information on caring for yourself after you leave the hospital. Your doctor may also give you specific instructions. While your treatment has been planned according to the most current medical practices available, unavoidable complications occasionally occur. If you have any problems or questions after discharge, please call your doctor. ACTIVITY You may resume your regular activity, but move at a slower pace for the next 24 hours. Take frequent rest periods for the next 24 hours. Walking will help get rid of the air and reduce the bloated feeling in your abdomen (belly). No driving for 24 hours (because of the anesthesia (medicine) used during the test). You may shower. Do not sign any important legal documents or operate any machinery for 24 hours (because of the anesthesia used during the test). NUTRITION Drink plenty of fluids. You may resume your normal diet as instructed by your doctor. Begin with a light meal and progress to your normal diet. Heavy or fried foods are harder to digest and may make you feel nauseated (sick to your stomach). Avoid alcoholic beverages for 24 hours or as instructed. MEDICATIONS You may resume your normal medications unless your doctor tells you otherwise. WHAT YOU CAN EXPECT TODAY Some feelings of bloating in the abdomen. Passage of more gas than usual. Spotting of blood in your stool or on the toilet paper. FOLLOW-UP Your doctor will discuss the results of your test with you. SEEK IMMEDIATE MEDICAL ATTENTION IF: There is more than a spotting of blood in your stool. There is abdominal distention (your abdomen is swollen). There is vomiting. You have a temperature over 101.5 F. There is abdominal pain or discomfort that is severe or gets worse throughout the day. Normal [facility] LIPID PROFILEon 09-11-2022 CHOL-HDL RATIO NORM SEE BELOW Normal [facility] Comment on above: Result Comment: 3.3 - 4.4 LOW RISK 4.4 - 7.1 AVERAGE RISK 7.1 - 11.0 MODERATE RISK >11.0 HIGH RISK Performed By: #### L IPID #### [facility] [address] [address] [address] Svetlana Golden Cholesterol [Mass/Vol] 154 mg/dL Normal <=200 [facility] Comment on above: Performed By: #### L IPID #### [facility] [address] [address] [address] Svetlana Golden Cholesterol in HDL [Mass/Vol] 52 mg/dL Normal 40-60 [facility] Comment on above: Performed By: #### L IPID #### [facility] [address] [address] [address] Svetlana Golden Cholesterol in LDL [Mass/Vol] 90.6 mg/dL Normal [facility] Comment on above: Performed By: #### L IPID #### [facility] [address] [address] [address] Svetlana Golden Cholesterol.total/Cho lesterol in HDL [Mass ratio] 3.0 {ratio} Normal [facility] Comment on above: Performed By: #### L IPID #### [facility] [address] [place] [address] Dr. Svetlana Golden HDL NORMAL > or = 60 mg/dl - LO W CARDIOVASCULAR RISK <40 mg/dl - HIGH CARDIOVASCULAR RISK Normal [facility] Comment on above: Performed By: #### L IPID #### [facility] [address] [address] [address] Svetlana Golden LDL CALC NORMAL SEE BELOW Normal [facility] Comment on above: Result Comment: <100 mg/dl OPTIMAL 100 - 129 mg/dl NEAR OR ABOVE OPTIMAL 130 - 159 mg/dl BORDERLINE HIGH 160 - 189 mg/dl HIGH >190 mg/dl VERY HIGH Performed By: #### L IPID #### [facility] [address] [address] [address] Svetlana Golden Triglyceride [Mass/Vol] 57 mg/dL Normal <=150 [facility] Comment on above: Performed By: #### L IPID #### [facility] [address] [address] [address] Svetlana Golden VLDL CALC 11.4 mg/dL Normal [facility] Comment on above: Performed By: #### L IPID #### [facility] [address] [address] [address] Svetlana Golden Consent for Procedure/Surger yon 08-08-2022 Consent for Procedure/Surgery [id number]. 00CD:127 Normal [facility] Ambulatory Visit Summaryon 0 08-07-2022 Ambulatory Visit Summary GERALDINE MUSA :1965 Visit Date:08/07/2022 Ambulatory Visit Instructions Your Diagnosis Screen for colon cancer Your Care Team Attending Physician - Arlen Littlejohn CNP Primary Care Physician - SHAIKH TORRES This Is Your Medications List polyethylene glycol 3350 with electrolytes (NuLYTELY Day oral powder for reconstitution) Contact prescribing physician if questions or concerns apixaban (Eliquis) losartan (losartan 100 mg Tab) rosuvastatin (rosuvastatin 10 mg Tab) Discharge Vitals Temperature (Temporal Artery) 36.5 ?C Heart Rate (Peripheral) 72 Blood Pressure 144/78 Height 187.9 cm Height 74 in Weight 101.6 kg Weight 223.52 lb BMI 28.78 What to do next You Need to Schedule the Following Appointments Follow Up with Arlen Littlejohn CNP When: Within 1 to 2 weeks Comments: Following colonoscopy. Where: Medications What How Much When Instructions New polyethylene glycol 3350 with electrolytes (NuLYTELY Day oral powder for reconstitution) See instructions Prior to colonoscopy. Pickup at [facility] Unchanged apixaban (Eliquis) Contact prescribing physician if questions or concerns Unchanged losartan (losartan 100 mg Tab) Contact prescribing physician if questions or concerns Unchanged rosuvastatin (rosuvastatin 10 mg Tab) Contact prescribing physician if questions or concerns Pharmacy Information [facility]: [address] [place], [place] [id number] [phone] Medications and Immunizations Administered Not Given influenza virus vaccine, inactivated, Patient Refuses Allergies No active allergies Problems Ongoing - Any problem that you are currently receiving treatment for. Screen for colon cancer Education Materials Colonoscopy, Adult A colonoscopy is an exam to look at the entire large intestine. During the exam, a lubricated, flexible tube that has a camera on the end of it is inserted into the anus and then passed into the rectum, colon, and other parts of the large intestine. You may have a colonoscopy as a part of normal colorectal screening or if you have certain symptoms, such as: ? Lack of red blood cells (anemia). ? Diarrhea that does not go away. ? Abdominal pain. ? Blood in your stool (feces). A colonoscopy can help screen for and diagnose medical problems, including: ? Tumors. ? Polyps. ? Inflammation. ? Areas of bleeding. Tell a health care provider about: ? Any allergies you have. ? All medicines you are taking, including vitamins, herbs, eye drops, creams, and qdyx-yxo-rutumqk medicines. ? Any problems you or family members have had with anesthetic medicines. ? Any blood disorders you have. ? Any surgeries you have had. ? Any medical conditions you have. ? Any problems you have had passing stool. What are the risks? Generally, this is a safe procedure. However, problems may occur, including: ? Bleeding. ? A tear in the intestine. ? A reaction to medicines given during the exam. ? Infection (rare). What happens before the procedure? Eating and drinking restrictions Follow instructions from your health care provider about eating and drinking, which may include: ? A few days before the procedure ? follow a low-fiber diet. Avoid nuts, seeds, dried fruit, raw fruits, and vegetables. ? 1?3 days before the procedure ? follow a clear liquid diet. Drink only clear liquids, such as clear broth or bouillon, black coffee or tea, clear juice, clear soft drinks or sports drinks, gelatin dessert, and popsicles. Avoid any liquids that contain red or purple dye. ? On the day of the procedure ? do not eat or drink anything starting 2 hours before the procedure, or within the time period that your health care provider recommends. Up to 2 hours before the procedure, you may continue to drink clear liquids, such as water or clear fruit juice. Bowel prep If you were prescribed an oral bowel prep to clean out your colon: ? Take it as told by your health care provider. Starting the day before your procedure, you will need to drink a large amount of medicated liquid. The liquid will cause you to have multiple loose stools until your stool is almost clear or light green. ? If your skin or anus gets irritated from diarrhea, you may use these to relieve the irritation: ? Medicated wipes, such as adult wet wipes with aloe and vitamin E. ? A skin-soothing product like petroleum jelly. ? If you vomit while drinking the bowel prep, take a break for up to 60 minutes and then begin the bowel prep again. If vomiting continues and you cannot take the bowel prep without vomiting, call your health care provider. ? To clean out your colon, you may also be given: ? Laxative medicines. ? Instructions about how to use an enema. General instructions ? Ask your health care provider about: ? Randall (more content not included)... Normal [facility] Gastroenterology Office/Clin ic Noteon 08-07-2022 Gastroenterology Office/Clinic Note Chief Complaint Colonoscopy HPI Staff This is a 57 year old male who presents today for a screening colonoscopy. This will be his first colonoscopy. History of Present Illness Patient is a 57-year-old male who presents for referral from his PCP?Dr. Torres for colonoscopy. PMH of HTN, HLD- managed by patient's PCP. Labs from outside record revealed labs 01/2022 revealed normal H/H, normal BUN and creatinine. Family history of colon cancer: Denies. Family history of colon polyps: Denies. Personal history of colon cancer: Denies. Personal history of colon polyps: Denies. Takes eliquis BID for reported hx. DVT in right leg- will request hold time recommendations of Eliquis from prescribing provider prior to colonoscopy. During today's visit, patient reports he has never had a colonoscopy before. Denies change in bowel habits, black/bloody stools, nausea/vomiting, fevers/chills, rectal pain/bleeding, and denies unintentional weight loss. Denies having any GI complaints. Review of Systems PHQ Score Initial Depression Screen Score: 0 ROS - Provider Constitutional: no fever, no chills. Skin: no Jaundice. ENMT: Denies dysphagia and heartburn. Respiratory: no shortness of breath. Cardiovascular: no chest pain. Gastrointestinal: no nausea, no vomiting, no diarrhea, no GI bleeding. Physical Exam Vitals & Measurements T: 36.5 ?C(Temporal Artery) HR: 72(Peripheral) BP: 144/78 HT: 74 in HT: 187.9 cm WT: 101.6 kg WT: 223.52 lb BMI: 28.78 General: Well developed, well nourished, in no acute distress Head: Normocephalic/atraumat ic Lungs: Normal respiratory effort and clear to auscultation Cardio: Regular rate and rhythm, normal S1 and S2, no murmur, no rub Abdomen: Soft, non-distended, non-tender. Normoactive bowel sounds present in all 4 abdominal quadrants, bilaterally. Mental Status: Alert and oriented x3. Normal mood and affect Assessment/Plan 1. Screen for colon cancer (Z12.11: Encounter for screening for malignant neoplasm of colon) Has never had colonoscopy before. Ordered Colonoscopy. Takes eliquis BID- will request hold time recommendations of Eliquis from prescribing provider prior to colonoscopy. Ordered: Colonoscopy (Hospital Procedure) Orders: polyethylene glycol 3350 with electrolytes, See Instructions, 1 EA, Refill(s) 0, Prior to colonoscopy., [facility], 187.9, cm, 08/07/22 15:27:00 EST, Height/Length Dosing, 101.6, kg, 08/07/22 15:27:00 EST, Weight Dosing Follow-up With When Contact Information Arlen Littlejohn CNP Within 1 to 2 weeks Additional Instructions: Following colonoscopy. Patient Education Colonoscopy, Adult Problem List/Past Medical History Ongoing Screen for colon cancer Historical No qualifying data Medications Eliquis losartan 100 mg Tab NuLYTELY Day oral powder for reconstitution, See Instructions rosuvastatin 10 mg Tab Allergies No active allergies Social History Tobacco Never (less than 100 in lifetime) Tobacco Use:. Current vaping or e-cigarette use Smokeless Tobacco Use:. Vaping, 08/07/2022 Family History Emphysema: Mother. Immunizations Vaccine Date Status Comments influenza virus vaccine, inactivated - Not Given Patient Refuses Normal [facility] Comment on above: Result Comment: Elec tronically Signed By: Arlen Littlejohn CNP\.br\Date and Time Signed: 08/07/22 15:40 EST Lab Reportson 08-07-2022 Lab Reports [id number] .00CD:127 Normal [facility] Lab Reports [id number] 0CD:127 Normal [facility] Patient Educationon 08-07-19 23 Patient Education Radiology Colonoscopy, Adult A colonoscopy is an exam to look at the entire large intestine. During the exam, a lubricated, flexible tube that has a camera on the end of it is inserted into the anus and then passed into the rectum, colon, and other parts of the large intestine. You may have a colonoscopy as a part of normal colorectal screening or if you have certain symptoms, such as: ? Lack of red blood cells (anemia). ? Diarrhea that does not go away. ? Abdominal pain. ? Blood in your stool (feces). A colonoscopy can help screen for and diagnose medical problems, including: ? Tumors. ? Polyps. ? Inflammation. ? Areas of bleeding. Tell a health care provider about: ? Any allergies you have. ? All medicines you are taking, including vitamins, herbs, eye drops, creams, and qttn-vba-kzohyej medicines. ? Any problems you or family members have had with anesthetic medicines. ? Any blood disorders you have. ? Any surgeries you have had. ? Any medical conditions you have. ? Any problems you have had passing stool. What are the risks? Generally, this is a safe procedure. However, problems may occur, including: ? Bleeding. ? A tear in the intestine. ? A reaction to medicines given during the exam. ? Infection (rare). What happens before the procedure? Eating and drinking restrictions Follow instructions from your health care provider about eating and drinking, which may include: ? A few days before the procedure ? follow a low-fiber diet. Avoid nuts, seeds, dried fruit, raw fruits, and vegetables. ? 1?3 days before the procedure ? follow a clear liquid diet. Drink only clear liquids, such as clear broth or bouillon, black coffee or tea, clear juice, clear soft drinks or sports drinks, gelatin dessert, and popsicles. Avoid any liquids that contain red or purple dye. ? On the day of the procedure ? do not eat or drink anything starting 2 hours before the procedure, or within the time period that your health care provider recommends. Up to 2 hours before the procedure, you may continue to drink clear liquids, such as water or clear fruit juice. Bowel prep If you were prescribed an oral bowel prep to clean out your colon: ? Take it as told by your health care provider. Starting the day before your procedure, you will need to drink a large amount of medicated liquid. The liquid will cause you to have multiple loose stools until your stool is almost clear or light green. ? If your skin or anus gets irritated from diarrhea, you may use these to relieve the irritation: ? Medicated wipes, such as adult wet wipes with aloe and vitamin E. ? A skin-soothing product like petroleum jelly. ? If you vomit while drinking the bowel prep, take a break for up to 60 minutes and then begin the bowel prep again. If vomiting continues and you cannot take the bowel prep without vomiting, call your health care provider. ? To clean out your colon, you may also be given: ? Laxative medicines. ? Instructions about how to use an enema. General instructions ? Ask your health care provider about: ? Changing or stopping your regular medicines or supplements. This is especially important if you are taking iron supplements, diabetes medicines, or blood thinners. ? Taking medicines such as aspirin and ibuprofen. These medicines can thin your blood. Do not take these medicines before the procedure if your health care provider tells you not to. ? Plan to have someone take you home from the hospital or clinic. What happens during the procedure? ? An IV may be inserted into one of your veins. ? You will be given medicine to help you relax (sedative). ? To reduce your risk of infection: ? Your health care team will wash or sanitize their hands. ? Your anal area will be washed with soap. ? You will be asked to lie on your side with your knees bent. ? Your health care provider will lubricate a long, thin, flexible tube. The tube will have a camera and a light on the end. ? The tube will be inserted into your anus. ? The tube will be gently eased through your rectum and colon. ? Air will be delivered into your colon to keep it open. You may feel some pressure or cramping. ? The camera will be used to take images during the procedure. ? A small tissue sample may be removed to be examined under a microscope (biopsy). ? If small polyps are found, your health care provider may remove them and have them checked for cancer cells. ? When the exam is done, the tube will be removed. The procedure may vary among health care providers and hospitals. What happens after the procedure? ? Your blood pressure, heart rate, breathing rate, and blood oxygen level will be monitored until the medicines you were given have worn off. ? Do not drive for 24 hours after the exam. ? You may have a small amount of blood in your stool. ? You may pass gas and have mild abdominal cramping or bloating due to the air t (more content not included)... Normal [facility] Physician Referralon 023 Physician Referral [id number] 0CD:127 Normal [facility] GLYCOHEMOGLOBIN A1Con 2021 ADA RECOMMENDATION SEE BELOW Normal [facility] Comment on above: Result Comment: ADA RECOMMENDED LIMIT 4.0 - 6.0 ADA THERAPEUTIC TARGET < 7.0 ACTION SUGGESTED > 7.0 Performed By: #### A 1C #### [facility] [address] [place] [address] Dr. Svetlana Golden Glucose [Mass/Vol] 120 mg/dL Normal [facility] Comment on above: Performed By: #### A 1C #### [facility] [address] [place] [address] Dr. Svetlana Golden HbA1c (Bld) [Mass fraction] 5.8 % Normal 4.5-6.2 [facility] Comment on above: Performed By: #### A 1C #### [facility] [address] [place] [address] Dr. Svetlana Golden LIPID PROFILEon 04-17-2022 CHOL-HDL RATIO NORM SEE BELOW Normal [facility] Comment on above: Result Comment: 3.3 - 4.4 LOW RISK 4.4 - 7.1 AVERAGE RISK 7.1 - 11.0 MODERATE RISK >11.0 HIGH RISK Performed By: #### B MP, LIPID #### [facility] [address] [place] [address] Dr. Svetlana Golden Cholesterol [Mass/Vol] 243 mg/dL Critically high <=200 [facility] Comment on above: Performed By: #### B MP, LIPID #### [facility] [place] [address] Dr. Svetlana Golden Cholesterol in HDL [Mass/Vol] 53 mg/dL Normal 40-60 [facility] Comment on above: Performed By: #### B MP, LIPID #### [facility] [address] [address] [address] Svetlana Golden Cholesterol in LDL [Mass/Vol] 172.6 mg/dL Normal [facility] Comment on above: Performed By: #### B MP, LIPID #### [facility] [address] [address] [address] Svetlana Golden Cholesterol.total/Cho lesterol in HDL [Mass ratio] 4.6 {ratio} Normal [facility] Comment on above: Performed By: #### B MP, LIPID #### [facility] [address] [address] [address] Svetlana Golden HDL NORMAL > or = 60 mg/dl - LO W CARDIOVASCULAR RISK <40 mg/dl - HIGH CARDIOVASCULAR RISK Normal [facility] Comment on above: Performed By: #### B MP, LIPID #### [facility] [address] [place] [address] Dr. Svetlana Golden LDL CALC NORMAL SEE BELOW Normal The [facility] Comment on above: Result Comment: <100 mg/dl OPTIMAL 100 - 129 mg/dl NEAR OR ABOVE OPTIMAL 130 - 159 mg/dl BORDERLINE HIGH 160 - 189 mg/dl HIGH >190 mg/dl VERY HIGH Performed By: #### B MP, LIPID #### [facility] [address] [address] [address] Svetlana Golden Triglyceride [Mass/Vol] 87 mg/dL Normal <=150 [facility] Comment on above: Performed By: #### B MP, LIPID #### [facility] [address] [address] [address] Svetlana Golden VLDL CALC 17.4 mg/dL Normal [facility] Comment on above: Performed By: #### B MP, LIPID #### [facility] [address] [address] [address] Svetlana Golden PROF CHEM 8 (BAS METB)on Anion gap [Moles/Vol] 7.6 mmol/L Normal [facility] Comment on above: Performed By: #### B MP, LIPID #### [facility] [address] [address] [address] Svetlana Golden Calcium [Mass/Vol] 8.8 mg/dL Normal 8.5-10.1 [facility] Comment on above: Performed By: #### B MP, LIPID #### [facility] [address] [address] [address] Svetlana Golden Chloride [Moles/Vol] 105 mmol/L Normal 98-107 [facility] Comment on above: Performed By: #### B MP, LIPID #### [facility] [address] [address] [address] Svetlana Golden CO2 [Moles/Vol] 28.0 mmol/L Normal 21.0-32.0 [facility] Comment on above: Performed By: #### B MP, LIPID #### [facility] [address] [address] [address] Svetlana Golden Creatinine [Mass/Vol] 1.00 mg/dL Normal 0.70-1.30 [facility] Comment on above: Performed By: #### B MP, LIPID #### [facility] [address] [address] [address] Svetlana Golden EGFR-AF ISRAELI >60 Normal >=60 [facility] Comment on above: Performed By: #### B MP, LIPID #### [facility] [address] [address] [address] Svetlana Golden EGFR-NON AF ISRAELI >60 Normal >=60 [facility] Comment on above: Performed By: #### B MP, LIPID #### [facility] [address] [address] [address] Svetlana Golden Glucose [Mass/Vol] 99 mg/dL Normal 74-[address] [facility] Comment on above: Performed By: #### B MP, LIPID #### [facility] [address] [address] [address] Svetlana Golden Potassium [Moles/Vol] 3.6 mmol/L Normal 3.5-5.1 [facility] Comment on above: Performed By: #### B MP, LIPID #### [facility] [address] [address] [address] Svetlana Golden Sodium [Moles/Vol] 137 mmol/L Normal 136-[address] [facility] Comment on above: Performed By: #### B MP, LIPID #### [facility] [address] [place] [address] Dr. Svetlana Golden Urea nitrogen [Mass/Vol] 18.0 mg/dL Normal 7.0-18.0 [facility] Comment on above: Performed By: #### B MP, LIPID #### [facility] [address] [place] [address] Dr. Svetlana Golden Urea nitrogen/Creatinine [Mass ratio] 18.0 mg/mg Normal [facility] Comment on above: Performed By: #### B MP, LIPID #### [facility] [address] [place] [address] Dr. Svetlana Golden CBC AUTO DIFFon 01-16-2022 BASO # 0.1 103/ul Normal 0.0-0.1 [facility] Comment on above: Performed By: #### C BC #### [facility] [address] [place] [address] Dr. Svetlana Golden Basophils/100 WBC (Bld) 0.8 % Normal 0.2-2.0 [facility] Comment on above: Performed By: #### C BC #### [facility] [address] [place] [address] Dr. Svetlana Golden EO # 0.2 103/ul Normal 0.0-0.7 [facility] Comment on above: Performed By: #### C BC #### [facility] [address] [place] [address] Dr. Svetlana Golden Eosinophils/100 WBC (Bld) 2.5 % Normal 0.9-7.0 [facility] Comment on above: Performed By: #### C BC #### [facility] [address] [place] [address] Dr. Svetlana Golden Erythrocyte distribution width (RBC) [Ratio] 12.4 % Normal 11.0-15.0 [facility] Comment on above: Performed By: #### C BC #### [facility] [address] [place] [address] Dr. Svetlana Golden Hematocrit (Bld) [Volume fraction] 46.4 % Normal 42.0-54.0 [facility] Comment on above: Performed By: #### C BC #### [facility] [address] [address] [address] Svetlana Golden Hemoglobin (Bld) [Mass/Vol] 15.4 g/dL Normal 14.0-18.0 [facility] Comment on above: Performed By: #### C BC #### [facility] [address] [address] [address] Svetlana Golden IG # 0.01 10e3/ul Normal 0.00-0.03 [facility] Comment on above: Performed By: #### C BC #### [facility] [address] [place] [address] Dr. Svetlana Golden IG % 0.1 % Normal 0.0-0.5 [facility] Comment on above: Performed By: #### C BC #### [facility] [address] [place] [address] Dr. Svetlana Golden LYMPH # 2.0 103/ul Normal 1.2-3.8 [facility] Comment on above: Performed By: #### C BC #### [facility] [address] [place] [address] Dr. Svetlana Golden Lymphocytes/100 WBC (Bld) 27.0 % Normal 20.5-60.0 [facility] Comment on above: Performed By: #### C BC #### [facility] [address] [place] [address] Dr. Svetlana Golden MANUAL DIFF REQ NO Normal [facility] Comment on above: Performed By: #### C BC #### [facility] [address] [place] [address] Dr. Svetlana Golden MCH (RBC) [Entitic mass] 31.9 pg Normal 25.9-34.0 [facility] Comment on above: Performed By: #### C BC #### [facility] [address] [place] [address] Dr. Svetlana Golden MCHC (RBC) [Mass/Vol] 33.2 g/dL Normal 29.9-35.2 [facility] Comment on above: Performed By: #### C BC #### [facility] [address] [address] [address] Svetlana Golden MCV (RBC) [Entitic vol] 96.1 fL Critically high 80.0-94.0 [facility] Comment on above: Performed By: #### C BC #### [facility] [address] [address] [address] Svetlana Golden MONO # 0.7 103/ul Normal 0.3-0.8 [facility] Comment on above: Performed By: #### C BC #### [facility] [address] [address] [address] Svetlana Golden Monocytes/100 WBC (Bld) 9.2 % Normal 1.7-12.0 [facility] Comment on above: Performed By: #### C BC #### [facility] [address] [place] [address] Dr. Svetlana Golden NEUT # 4.5 103/ul Normal 1.4-6.5 [facility] Comment on above: Performed By: #### C BC #### [facility] [address] [place] [address] Dr. Svetlana Golden Neutrophils/100 WBC (Bld) 60.4 % Normal 43.0-75.0 [facility] Comment on above: Performed By: #### C BC #### [facility] [address] [place] [address] Dr. Svetlana Golden Platelet mean volume (Bld) [Entitic vol] 9.7 fL Normal 9.5-13.5 [facility] Comment on above: Performed By: #### C BC #### [facility] [address] [place] [address] Dr. Svetlana Golden PLT 312 103/ul Normal 150-450 [facility] Comment on above: Performed By: #### C BC #### [facility] [address] [place] [address] Dr. Svetlana Golden RBC 4.83 106/ul Normal 4.70-6.10 [facility] Comment on above: Performed By: #### C BC #### [facility] [address] [address] [address] Svetlana Golden WBC 7.5 103/ul Normal 4.0-11.0 [facility] Comment on above: Performed By: #### C BC #### [facility] [address] [place] [address] Dr. Svetlana Golden PROF CHEM 8 (BAS METB)on Anion gap [Moles/Vol] 12.1 mmol/L Normal [facility] Comment on above: Performed By: #### B MP #### [facility] [address] [place] [address] Dr. Svetlana Golden Calcium [Mass/Vol] 9.2 mg/dL Normal 8.5-10.1 [facility] Comment on above: Performed By: #### B MP #### [facility] [address] [place] [address] Dr. Svetlana Golden Chloride [Moles/Vol] 107 mmol/L Normal 98-107 [facility] Comment on above: Performed By: #### B MP #### [facility] [address] [place] [address] Dr. Svetlana Golden CO2 [Moles/Vol] 29.8 mmol/L Normal 21.0-32.0 [facility] Comment on above: Performed By: #### B MP #### [facility] [address] [place] [address] Dr. vSetlana Golden Creatinine [Mass/Vol] 0.95 mg/dL Normal 0.70-1.30 [facility] Comment on above: Performed By: #### B MP #### [facility] [address] [place] [address] Dr. Svetlana Golden EGFR-AF ISRAELI >60 Normal >=60 [facility] Comment on above: Performed By: #### B MP #### [facility] [address] [place] [address] Dr. Svetlana Golden EGFR-NON AF ISRAELI >60 Normal >=60 [facility] Comment on above: Performed By: #### B MP #### [facility] [address] [place] [address] Dr. Svetlana Golden Glucose [Mass/Vol] 97 mg/dL Normal 74-106 [facility] Comment on above: Performed By: #### B MP #### [facility] [address] [place] [address] Dr. Svetlana Golden Potassium [Moles/Vol] 4.9 mmol/L Normal 3.5-5.1 [facility] Comment on above: Performed By: #### B MP #### [facility] [address] [address] [address] Svetlana Golden Sodium [Moles/Vol] 144 mmol/L Normal 136-145 [facility] Comment on above: Performed By: #### B MP #### [facility] [address] [place] [address] Dr. Svetlana Golden Urea nitrogen [Mass/Vol] 13.0 mg/dL Normal 7.0-18.0 [facility] Comment on above: Performed By: #### B MP #### [facility] [address] [place] [address] Dr. Svetlana Golden Urea nitrogen/Creatinine [Mass ratio] 13.7 mg/mg Normal [facility] Comment on above: Performed By: #### B MP #### [facility] [address] [place] [address] Dr. Svetlana Golden PROTIMEon 01-16-2022 INR Coag (PPP) [Relative time] 1.00 {INR} Normal [facility] Comment on above: Performed By: #### P TT, PT #### [facility] [address] [place] [address] Dr. Svetlana Golden INR GUIDELINES SEE BELOW Normal [facility] Comment on above: Result Comment: TOMY RED INR: 2.0 - 3.0 CONDITIONS NOT LISTED BELOW 2.5 - 3.5 FOR PROSTHETIC HEART VALVE REPLACEMENT 2.5 - 3.5 RECURRENT THROMBOSIS Performed By: #### P TT, PT #### [facility] [address] [place] [address] Dr. Svetlana Golden PT Coag (PPP) [Time] 10.8 s Normal 9.0-11.6 [facility] Comment on above: Performed By: #### P TT, PT #### [facility] [address] [place], [place] [address] Dr. Svetlana Golden PTTon 01-16-2022 aPTT Coag (Bld) [Time] 27.1 s Normal 22.3-36.2 [facility] Comment on above: Performed By: #### P TT, PT #### [facility] [address] [place], [place] [address] Dr. Svetlana Golden US YOLI DOP LEG RTon 01-17-20 22 US YOLI DOP LEG RT EXAM: US YOLI DOP LEG RT HISTORY: This is a 56-year-old with right lower leg and foot pain for 4 days. COMPARISON: 05/23/2021 TECHNIQUE: Multiple sonographic images of the deep veins of the right lower extremity were obtained, supplemented with Doppler. FINDINGS: The deep veins of the right lower extremity are fairly well-visualized the groin to the mid calf. No filling defect is clearly identified to indicate a thrombus. There is abnormal partial compression of the distal femoral, popliteal and peroneal veins compatible with deep vein thrombosis. There is little or no flow in these veins. There is normal compression augmentation of flow in the more proximal deep veins. Flow is identified in the saphenous vein. IMPRESSION: The findings are consistent with deep vein thrombosis involving the distal femoral, popliteal and peroneal veins. The patient had a prior study on 05/23/2021 which reported no evidence of deep vein thrombosis, as well and thrombosis in the greater saphenous vein. Electronically authenticated by: ANGEL GABRIEL Date: 2022-01-16 17:35 Normal [facility] Vital Signs Date Time Vital Sign Value Performing Clinician Facility 10-20-2022 08:55-0400 Diastolic blood pressure 90 mm[Hg] [facility] 10-20-2022 08:55-0400 Heart rate 64 /min [facility] 10-20-2022 08:55-0400 Mean blood pressure 108 [facility] 10-20-2022 08:55-0400 Respiratory rate 20 /min Charles SALAM [facility] 10-20-2022 08:55-0400 SaO2% (BldA) [Mass fraction] 96 % Charles SALAM [facility] 10-20-2022 08:55-0400 Systolic blood pressure 145 mm[Hg] Charles SALAM [facility] 10-20-2022 08:45-0400 Diastolic blood pressure 98 mm[Hg] Charles SALAM [facility] 10-20-2022 08:45-0400 Heart rate 80 /min Charles SALAM [facility] 10-20-2022 08:45-0400 Respiratory rate 12 /min Charles SALAM [facility] 10-20-2022 08:45-0400 SaO2% (BldA) [Mass fraction] 97 % Charles SALAM [facility] 10-20-2022 08:45-0400 Systolic blood pressure 140 mm[Hg] Charles SALAM [facility] 10-20-2022 08:40-0400 Diastolic blood pressure 86 mm[Hg] Charles SALAM [facility] 10-20-2022 08:40-0400 Heart rate 64 /min Charles SALAM [facility] 10-20-2022 08:40-0400 Mean blood pressure 102 mm[Hg] Charles SALAM [facility] 10-20-2022 08:40-0400 Respiratory rate 19 /min Charles SALAM [facility] 10-20-2022 08:40-0400 SaO2% (BldA) [Mass fraction] 96 % Charles SALAM [facility] 10-20-2022 08:40-0400 Systolic blood pressure 135 mm[Hg] Charles SALAM [facility] 10-20-2022 08:35-0400 Mean blood pressure 94 mm[Hg] Charles SALAM [facility] 10-20-2022 08:30-0400 Blood Pressure Location Charles SALAM [facility] 10-20-2022 08:30-0400 Body temperature 97.52 [degF] Charles SALAM [facility] 10-20-2022 08:20-0400 Respiratory rate 16 /min Charles SALAM [facility] 10-20-2022 08:15-0400 Respiratory rate 17 /min Charles SALAM [facility] 10-20-2022 07:20-0400 Blood Pressure Location Charles SALAM [facility] 10-20-2022 07:20-0400 Body temperature 98.78 [degF] Charles SALAM [facility] 08-07-2022 15:23-0500 Blood Pressure Location Arlencat EppersonEron [facility] 08-07-2022 15:23-0500 Body temperature 97.7 [degF] Arlen Eron [facility] 08-07-2022 15:23-0500 Diastolic blood pressure 78 mm[Hg] Arlen Eron [facility] 08-07-2022 15:23-0500 Heart rate 72 /min Arlen Eppersonmetz [facility] 08-07-2022 15:23-0500 Systolic blood pressure 144 mm[Hg] Arlen Littlejohn [facility] Encounters Encounter Date Encounter Type Care Provider Facility Start: 11-12-2023 End: 11-12-2023 ambulatory ALEJANDRO FAWWAD Not Available Start: 05-08-2023 End: 05-08-2023 ambulatory ALEJANDRO FAWWAD Not Available Start: 10-20-2022 End: 10-21-2022 ambulatory ALEJANDRO FAWWAD Facility:[facility] Start: 10-20-2022 End: 10-20-2022 Patient encounter procedure Araceli AGGARWAL [facility] Start: 09-11-2022 End: 09-12-2022 ambulatory ALEJANDRO H FAWWAD Facility: Start: 08-07-2022 End: 08-08-2022 ambulatory ALEJANDRO FAWWAD Facility:[facility] Start: 08-07-2022 End: 08-07-2022 Patient encounter procedure Arlen Littlejohn [facility] Start: 07-11-2022 [facility] Start: 04-17-2022 End: 04-18-2022 ambulatory ALEJANDRO H FAWWAD Facility: Start: 01-16-2022 End: 01-16-[address] NONE LISTED REQUEST Facility: Procedures Date Procedure Procedure Detail Performing Clinician Start: 10-20-2022 Colonoscopic polypectomy Araceli AGGARWAL Start: 10-20-2022 Colonoscopy Araceli Rg Immunizations Immunization Date Immunization Notes Care Provider Fa cility NEGATED: Highlighted row has not occurred!08-07-2022 influenza virus vaccine, unspecified formulation Arlen Littlejohn [facility] Payers Date Payer Category Payer Unknown [id number] 1965 Unknown [id number] 2.16.84 [id number] 1965 Unknown [id number] 2.16.84 [id number] 1965 Unknown [id number] 2.16.84 [id number] 1965 Unknown [id number] 2.16.8 [id number] 1965 Unknown [id number] 2.16.8 [id number] 1965 Unknown [id number] 2.16.84 [id number] 1965 Unknown [id number] 1959 Unknown [id number] Social History Date Type Detail Facility Start: 08-07-2022 Tobacco smoking status Never s moked tobacco (finding) [facility] Sex Assigned At Male [facility] Functional Status Date Assessment Result Facility 10-20-2022 Functional Status N/A [facility] 08-07-2022 Functional Status N/A [facility] History and physical note 10-23-2022 Note Date & Type Note Facility 10-23-2022 Note [id number] 3#[id number]:[id number] [facility] Discharge instructions 10-20-2022 Note Date & Type Note Facility 10-20-2022 Hospital Discharg e instructions Patient Education 10/20/2022 08:36:46 Colonoscopy, Care After Surgery Salam (CUSTOM) Colonoscopy Care After Surgery Please read the instructions outlined below and refer to this sheet in the next few weeks. These discharge instructions provide you with general information on caring for yourself after you leave the hospital. Your doctor may also give you specific instructions. While your treatment has been planned according to the most current medical practices available, unavoidable complications occasionally occur. If you have any problems or questions after discharge, please call your doctor. ACTIVITY You may resume your regular activity, but move at a slower pace for the next 24 hours. Take frequent rest periods for the next 24 hours. Walking will help get rid of the air and reduce the bloated feeling in your abdomen (belly). No driving for 24 hours (because of the anesthesia (medicine) used during the test). You may shower. Do not sign any important legal documents or operate any machinery for 24 hours (because of the anesthesia used during the test). NUTRITION Drink plenty of fluids. You may resume your normal diet as instructed by your doctor. Begin with a light meal and progress to your normal diet. Heavy or fried foods are harder to digest and may make you feel nauseated (sick to your stomach). Avoid alcoholic beverages for 24 hours or as instructed. MEDICATIONS You may resume your normal medications unless your doctor tells you otherwise. WHAT YOU CAN EXPECT TODAY Some feelings of bloating in the abdomen. Passage of more gas than usual. Spotting of blood in your stool or on the toilet paper. FOLLOW-UP Your doctor will discuss the results of your test with you. SEEK IMMEDIATE MEDICAL ATTENTION IF: There is more than a spotting of blood in your stool. There is abdominal distention (your abdomen is swollen). There is vomiting. You have a temperature over 101.5 F. There is abdominal pain or discomfort that is severe or gets worse throughout the day. Follow Up Care 08/07/2022 16:03:41 With:MARIEL WILLIAM, Araceli, TAMMIE, [facility] Address: [address] [place] [phone] When:1 to 2 weeks Comments:Office will call with date and time of follow-up appt. With:Araceli AGGARWAL Address: [address] [place] [phone] Business (1) When: Unknown Comments:Office will call date and time of follow-up appt. [facility] Discharge instructions 08-07-2022 Note Date & Type Note Facility 08-07-2022 Hospital Discharg e instructions Patient Education 08/07/2022 15:34:27 Colonoscopy, Adult Colonoscopy, Adult A colonoscopy is an exam to look at the entire large intestine. During the exam, a lubricated, flexible tube that has a camera on the end of it is inserted into the anus and then passed into the rectum, colon, and other parts of the large intestine. You may have a colonoscopy as a part of normal colorectal screening or if you have certain symptoms, such as: Lack of red blood cells (anemia). Diarrhea that does not go away. Abdominal pain. Blood in your stool (feces). A colonoscopy can help screen for and diagnose medical problems, including: Tumors. Polyps. Inflammation. Areas of bleeding. Tell a health care provider about: Any allergies you have. All medicines you are taking, including vitamins, herbs, eye drops, creams, and [id number] medicines. Any problems you or family members have had with anesthetic medicines. Any blood disorders you have. Any surgeries you have had. Any medical conditions you have. Any problems you have had passing stool. What are the risks? Generally, this is a safe procedure. However, problems may occur, including: Bleeding. A tear in the intestine. A reaction to medicines given during the exam. Infection (rare). What happens before the procedure? Eating and drinking restrictions Follow instructions from your health care provider about eating and drinking, which may include: A few days before the procedure follow a low-fiber diet. Avoid nuts, seeds, dried fruit, raw fruits, and vegetables. 1 3 days before the procedure follow a clear liquid diet. Drink only clear liquids, such as clear broth or bouillon, black coffee or tea, clear juice, clear soft drinks or sports drinks, gelatin dessert, and popsicles. Avoid any liquids that contain red or purple dye. On the day of the procedure do not eat or drink anything starting 2 hours before the procedure, or within the time period that your health care provider recommends. Up to 2 hours before the procedure, you may continue to drink clear liquids, such as water or clear fruit juice. Bowel prep If you were prescribed an oral bowel prep to clean out your colon: Take it as told by your health care provider. Starting the day before your procedure, you will need to drink a large amount of medicated liquid. The liquid will cause you to have multiple loose stools until your stool is almost clear or light green. If your skin or anus gets irritated from diarrhea, you may use these to relieve the irritation: ?Medicated wipes, such as adult wet wipes with aloe and vitamin E. ?A skin-soothing product like petroleum jelly. If you vomit while drinking the bowel prep, take a break for up to 60 minutes and then begin the bowel prep again. If vomiting continues and you cannot take the bowel prep without vomiting, call your health care provider. To clean out your colon, you may also be given: ?Laxative medicines. ?Instructions about how to use an enema. General instructions Ask your health care provider about: ?Changing or stopping your regular medicines or supplements. This is especially important if you are taking iron supplements, diabetes medicines, or blood thinners. ?Taking medicines such as aspirin and ibuprofen. These medicines can thin your blood. Do not take these medicines before the procedure if your health care provider tells you not to. Plan to have someone take you home from the hospital or clinic. What happens during the procedure? An IV may be inserted into one of your veins. You will be given medicine to help you relax (sedative). To reduce your risk of infection: ?Your health care team will wash or sanitize their hands. ?Your anal area will be washed with soap. You will be asked to lie on your side with your knees bent. Your health care provider will lubricate a long, thin, flexible tube. The tube will have a camera and a light on the end. The tube will be inserted into your anus. The tube will be gently eased through your rectum and colon. Air will be delivered into your colon to keep it open. You may feel some pressure or cramping. The camera will be used to take images during the procedure. A small tissue sample may be removed to be examined under a microscope (biopsy). If small polyps are found, your health care provider may remove them and have them checked for cancer cells. When the exam is done, the tube will be removed. The procedure may vary among health care providers and hospitals. What happens after the procedure? Your blood pressure, heart rate, breathing rate, and blood oxygen level will be monitored until the medicines you were given have worn off. Do not drive for 24 hours after the exam. You may have a small amount of blood in your stool. You may pass gas and have mild abdominal cramping or bloating due to the air that was used to inflate your colon during the exam. It is up to you to get the results of your procedure. Ask your health care provider, or the department performing the procedure, when your results will be ready. Summary A colonoscopy is an exam to look at the entire large intestine. During a colonoscopy, a lubricated, flexible tube with a camera on the end of it is inserted into the anus and then passed into the colon and other parts of the large intestine. Follow instructions from your health care provider about eating and drinking before the procedure. If you were prescribed an oral bowel prep to clean out your colon, take it as told by your health care provider. After your procedure, your blood pressure, heart rate, breathing rate, and blood oxygen level will be monitored until the medicines you were given have worn off. This information is not intended to replace advice given to you by your health care provider. Make sure you discuss any questions you have with your health care provider. Document Released: 05/25/2001 Document Revised: 03/20/2018 Document Reviewed: 08/08/2016 [employer] Patient Education [employer] Follow Up Care 07/11/2022 15:11:10 With:Arlen Littlejohn CNP Address: When:1 to 2 weeks Comments:Following colonoscopy. [facility] Evaluation + Plan note Note Date & Type Note Facility Evaluation + Plan note Future Appointments Appointment Date:10/20/2022 08:00:00 AM Scheduled Provider: Location:[facility] Appointment Type:Surgery FT [facility] Hospital course Narrative Note Date & Type Note Facility Hospital course Narrative No data available for this section [facility] Progress note Note Date & Type Note Facility Progress note No data available for this section [facility] Summary Purpose Family History No Family History Records FoundNo Family History Records FoundNo Family History Records Found Advance Directives No Advanced Directives Records FoundNo Advanced Directives Records FoundNo Advanced Directives Records Found Additional Source Comments Patient Care team informatio n (unrecognized section and content) Personnel Name: SHAIKH TORRES Address: Address: [address] [place] [address] Personnel Name: SHAIKH TORRES Address: Address: [address] [place] [address] (unrecognized sect ion and content) No Status Records FoundNo Status Records FoundNo Status Records Found INFORMATION SOURCE (unrecogn ized section and content) DATE CREATED AUTHOR 09/16/2022 [facility] DATE CREATED AUTHOR AUTHOR'S ORGANIZ ATION 10/23/2022 [facility] DATE CREATED AUTHOR AUTHOR'S ORGANIZ ATION 11/13/2023 [facility] EPIC FOR RECORDS PERTAINING TO PATIENTS WHO ARE OR HAVE BEEN ENROLLED IN A CHEMICAL DEPENDENCY/SUBSTANCEABUSE PROGRAM, SOME INFORMATION MAY BE OMITTED. This clinical summary was aggregated from multiple sources. Caution should be exercised in using it in the provision of clinical care. This summary normalizes information from multiple sources, and as a consequence, information in this document may materially change the coding, format and clinical context of patient data. In addition, data may be omitted in some cases. CLINICAL DECISIONS SHOULD BE BASED ON THE PRIMARY CLINICAL RECORDS. [facility]. provides no warranty or guarantee of the accuracy or completeness of information in this document.
--- NOTE | 2024-05-25 16:21 | ECG_ITS ---
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
--- NOTE | 2024-05-25 16:26 | CT_ITS ---
The [address] [address] Patient Name: GERALDINE MUSA MRN: [id number] date: 1965 Sex: M Assigned Patient Location: ER Current Patient Location: Accession/Order Number: [id number] Exam Date: 05/25/2024 16:40 Report Date: 05/25/2024 17:17 At the request of: DOMINGUEZ SANTOS Procedure: CT angio chest EXAM: CT pulmonary angiogram of the chest using mL of IV iodinated contrast. 3-D imaging was performed. Dose reduction technique used: Automated exposure control and/or adjustment of the mA and/or kV according to patient size and/or use of iterative reconstruction technique. REASON FOR EXAM: r/o PE left sided pleuritic chest pain, dyspnea COMPARISON: None FINDINGS: Small burden of acute bilateral pulmonary emboli including emboli in the right upper lobe lobar pulmonary artery branch and bilateral segmental and subsegmental pulmonary artery branches. No definite CT evidence right heart strain. No aortic dissection. No pneumothorax. No acute airspace opacities. No pleural effusion. No acute fractures. No concerning pulmonary nodules. No definite lymphadenopathy in the chest. Small to moderate-sized right pleural effusion. Trace left pleural effusion. Associated atelectasis in the right mid and lower lung. Coronary atherosclerotic calcifications are present. Remainder unremarkable. CT/CT angio chest IMPRESSION: 1. Small burden of acute bilateral pulmonary emboli without definite right heart strain. 2. Small to moderate-sized right pleural effusion with associated atelectasis. Electronically authenticated by: DORCAS CID Date: 05/25/2024 17:17
--- NOTE | 2024-05-25 16:27 | ED.CHESTPAI1 ---
HPI - Chest Pain General Chief Complaint: Chest Pain Stated Complaint: chestpain Time Seen by Provider: 05/25/24 16:20 Source: patient Mode of arrival: walk-in Limitations: no limitations History of Present Illness HPI narrative: 59-year-old male presents to the ER with concerns of left-sided chest pain patient reports pain with movement and deep breaths started yesterday around 2, he denies any recent injury or fever states he has been out of his blood thinning medication and cholesterol medication for over a month he just did not yet call for refill on the medication. He has prior history of leg DVT and was on Xarelto before getting switched to a new medication which she cannot recall the name. He notes shortness of breath and pain with movement pain with deep breath that is sharp. He denies any nausea or vomiting he denies any abdominal pain. Treated a year ago for lumbar spine fracture. MD complaint: Reports chest pain Timing of current episode: Reports constant Prior episodes: No Pain location: Reports left chest Pain radiation: Reports none (left side chest and left back) Relieving factors: Reports nothing Exacerbating factors: Reports inspiration and movement Context: Denies recent illness Associated symptoms: Denies nausea or vomiting Risk Factors Coronary artery disease risk factors: smoking history and hyperlipidemia Pulmonary embolism risk factors: history of deep vein thrombosis Related Data Home Medications ?Medication ?Instructions ?Recorded ?Confirmed No Known Home Medications 05/25/24 05/25/24 Allergies Allergy/AdvReac Type Severity Reaction Status Date / Time No Known Drug Allergies Allergy Verified 05/25/24 16:07 Review of Systems ROS Constitutional Denies: fever or chills Eyes Denies: change in vision or blurry vision Ears, nose, mouth, and throat Denies: throat pain or neck pain Cardiovascular Reports: chest pain; Denies: palpitations or edema Respiratory Reports: shortness of breath and pain on inspiration; Denies: cough Gastrointestinal Denies: abdominal pain or nausea Genitourinary Denies: painful urination or urinary frequency Musculoskeletal Denies: back pain or neck pain Integumentary/Breast Denies: rash Neurological Denies: headache Psychiatric Denies: anxiety Endocrine Denies: excessive urination Hematologic/Lymphatic Denies: easy bruising PFSH PFSH Medical History (Updated 05/25/24 @ 17:59 by HUAN Carrillo) Blood clot in leg Social History Smoking status: Current every day smoker Little interest or pleasure in doing things: not at all Feeling down, depressed, or hopeless: not at all Exam Narrative Exam Narrative: Nurses notes and vital signs reviewed and patient is not hypoxic. General: The patient appears well and in no apparent distress. Patient is resting comfortably on cart. Skin: Warm, dry, no pallor noted.no zoster like rash. Head: Normocephalic, atraumatic Neck: Supple, trachea mid-line, no tenderness, no lymphadenopathy Eye: Pupils are equal, round and reactive to light, EOMI Ears, Nose, Mouth, and Throat: TM are clear, normal light reflex, oral mucosa is moist, no posterior oropharynx erythema or hypertrophy, uvula is mid-line Cardiovascular: Regular Rate and Rhythm Respiratory: Patient is in no distress, no accessory muscle use, lungs are clear to auscultation, no wheezing, rales or rhonchi. diminished in lower lobes. Chest Wall: Pleuritic pain noted, no evidence of zoster like rash tenderness to the left lateral chest wall present Back: non-tender, no CVA tenderness Musculoskeletal: normal ROM, no tenderness, no swelling GI: Normal bowel sounds, no tenderness to palpation, no masses appreciated. No rebound, guarding, or rigidity noted. Neurological: A&O x4 Psychiatric: Cooperative Constitutional Vital Signs, click to edit/add: Last Vital Signs Temp 97.9 F 05/25/24 16:08 Pulse 84 05/25/24 18:10 Resp 12 05/25/24 18:10 BP 133/82 05/25/24 18:00 Pulse Ox 93 L 05/25/24 18:10 O2 Del Method Room Air 05/25/24 16:08 Course Vital Signs Vital signs: Vital Signs Temperature 97.9 F 05/25/24 16:08 Pulse Rate 84 05/25/24 16:08 Respiratory Rate 18 05/25/24 16:08 Blood Pressure 163/94 H 05/25/24 16:08 Pulse Oximetry 93 L 05/25/24 16:08 Oxygen Delivery Method Room Air 05/25/24 16:08 Temperature 97.9 F 05/25/24 16:08 Pulse Rate 84 05/25/24 18:10 Respiratory Rate 12 05/25/24 18:10 Blood Pressure 133/82 05/25/24 18:00 Pulse Oximetry 93 L 05/25/24 18:10 Oxygen Delivery Method Room Air 05/25/24 16:08 MDM - Chest Pain MDM Narrative Medical decision making narrative: Patient presents with acute onset shortness of breath and pleuritic chest pain that started yesterday worsening today, guarded with motion and movement denies injury. Patient admits that he has not taken his blood thinning medication for over a month I just did not call for a refill. He reports having superficial thrombophlebitis and a DVT in the lower extremity in the past he denies any leg swelling. He was previously treated with a blood thinner for a year before he switched to a new medication which she cannot recall the name. He denies any fever or recent illness. EKG was obtained patient will be sent for CTA of the chest to rule out PE given his symptoms. Patient reevaluated, reports pain improved he does not feel overly short of breath at rest. We discussed his CTA of the chest demonstrating bilateral pulmonary embolism. Patient was able to reach his states it was Eliquis that he was post to be taking for the past month but had not been. Previously to that he was on Xarelto. Patient's case discussed with hospitalist Nita nurse practitioner she is agreeable to admission for observation we mutually discussed patient's presentation he did not fail his current blood thinner but did not take it for the past month at least she is agreeable to a full dose of Lovenox here for admission and they will likely restart him on his Eliquis. Appears to be more of a compliance issue than medication failure. Patient agreeable to admission for further observation. He is without any GI bleeding or Head injury by history. Pt notifying of Observation admission. Lab Data Attestation: I reviewed the patient's lab results. Labs: Lab Results 05/25/24 05/25/24 Range/Units 16:25 17:29 WBC 11.4 H (4.0-11.0) 10^3/uL RBC 4.85 (4.70-6.10) 10^6/uL Hgb 15.1 (14.0-18.0) g/dL Hct 47.3 (42.0-54.0) % MCV 97.5 H (80.0-94.0) fL MCH 31.1 (25.9-34.0) pg MCHC 31.9 (29.9-35.2) g/dL RDW 12.3 (11.0-15.0) % Plt Count 272 (150-450) 10^3/uL MPV 9.9 (9.5-13.5) fL Neut % (Auto) 70.6 (43.0-75.0) % Lymph % (Auto) 15.9 L (20.5-60.0) % [place] % (Auto) 8.7 (1.7-12.0) % Eos % (Auto) 4.0 (0.9-7.0) % Baso % (Auto) 0.5 (0.2-2.0) % Neut # (Auto) 8.1 H (1.4-6.5) 10^3/uL Lymph # (Auto) 1.8 (1.2-3.8) 10^3/uL [place] # (Auto) 1.0 H (0.3-0.8) 10^3/uL Eos # (Auto) 0.5 (0.0-0.7) 10^3/uL Baso # (Auto) 0.1 (0.0-0.1) 10^3/uL Abs Immat Gran (auto) 0.04 H (0.00-0.03) 10^3/uL Imm/Tot Granulo (auto) 0.3 (0.0-0.5) % PT 10.2 (9.0-11.6) sec INR 0.96 APTT 27.9 (22.3-36.2) sec Sodium 140 (136-145) mmol/L Potassium 4.1 (3.5-5.1) mmol/L Chloride 105 (98-107) mmol/L Carbon Dioxide 30.6 (21.0-32.0) mmol/L Anion Gap 8.5 BUN 16.0 (7.0-18.0) mg/dL Creatinine 1.08 (0.70-1.30) mg/dL Est GFR ( Amer) >60 (>=60 mL/min/1.73m^2) Est GFR (Non-Af Amer) >60 (>=60 mL/min/1.73m^2) BUN/Creatinine Ratio 14.8 Glucose 141 H (74-106) mg/dL Calcium 9.0 (8.5-10.1) mg/dL Total Bilirubin 0.7 (0.2-1.0) mg/dL AST 16 (15-37) U/L ALT 31 (16-63) U/L Alkaline Phosphatase 127 H (46-116) U/L Troponin I High Sens 5.2 5.5 (4.0-76.1) pg/mL Total Protein 7.4 (6.4-8.2) g/dL Albumin 3.2 L (3.4-5.0) g/dL Globulin 4.2 g/dL Albumin/Globulin Ratio 0.8 Lipase 32.0 (16.0-77.0) U/L Imaging Data CT scan - chest: Radiologist's impression: ITS Impressions Chest CTA 05/25/24 16:26 IMPRESSION: 1. Small burden of acute bilateral pulmonary emboli without definite right heart strain. 2. Small to moderate-sized right pleural effusion with associated atelectasis. Electronically authenticated by: DORCAS CID Date: 05/25/2024 17:17 ECG Data Attestation: I personally reviewed and interpreted this ECG as follows: Interpretation: EKG interpretation: Emergency Department physician interpretation, normal sinus rhythm 87 bpm, no ectopy, no ST segment elevation, normal axis.occ pvc Discharge Plan Discharge Chief Complaint: Chest Pain Clinical Impression: Bilateral pulmonary embolism, Pleural effusion on right, Chest pain Patient Disposition: Admitted as Observation Time of Disposition Decision: 18:20 Condition: Good Prescriptions / Home Meds: No Action No Known Home Medications Print Language: Macedonian Referrals: Shaikh Torres MD [Primary Care Provider] - 1 week
[2024-05-25] MEDS: KETOROLAC TROMETHAMINE 30 MG/ML VIAL IVP (16:36)
[2024-05-25 16:52] LABS: Basophils Absolute Auto 0.1 10^3/uL (0.0-0.1); Basophils Percent Auto 0.5 % (0.2-2.0); Eosinophils Absolute Auto 0.5 10^3/uL (0.0-0.7); Hematocrit 47.3 % (42.0-54.0); Hemoglobin 15.1 g/dL (14.0-18.0); Immature Granulocytes Abs Auto 0.04 10^3/uL (0.00-0.03); Immature Granulocytes Pct Auto 0.3 % (0.0-0.5); Lymphocytes Absolute Auto 1.8 10^3/uL (1.2-3.8); Lymphocytes Percent Auto 15.9 % (20.5-60.0); Mean Corpuscular HGB Conc 31.9 g/dL (29.9-35.2); Mean Corpuscular Hemoglobin 31.1 pg (25.9-34.0); Mean Corpuscular Volume 97.5 fL (80.0-94.0); Mean Platelet Volume 9.9 fL (9.5-13.5); Monocytes Percent Auto 8.7 % (1.7-12.0); Neutrophils Absolute Auto 8.1 10^3/uL (1.4-6.5); Neutrophils Percent Auto 70.6 % (43.0-75.0); Platelet Count 272 10^3/uL (150-450); Red Blood Count 4.85 10^6/uL (4.70-6.10); Red Cell Distribution Width 12.3 % (11.0-15.0); White Blood Count 11.4 10^3/uL (4.0-11.0)
[2024-05-25 17:18] LABS: Alanine Aminotransferase 31 U/L (16-63); Albumin Globulin Ratio 0.8; Albumin Level 3.2 g/dL (3.4-5.0); Alkaline Phosphatase 127 U/L (46-116); Anion Gap 8.5; Aspartate Amino Transferase 16 U/L (15-37); BUN Creatinine Ratio 14.8; Bilirubin Total 0.7 mg/dL (0.2-1.0); Carbon Dioxide 30.6 mmol/L (21.0-32.0); Chloride 105 mmol/L (98-107); Estimated GFR (African America >60 (>=60 mL/min/1.73m^2); Estimated GFR (Non-African Ame >60 (>=60 mL/min/1.73m^2); Globulin 4.2 g/dL; Glucose 141 mg/dL (74-106); INR 0.96; Partial Thromboplastin Time 27.9 sec (22.3-36.2); Potassium 4.1 mmol/L (3.5-5.1); Prothrombin Time 10.2 sec (9.0-11.6); Sodium 140 mmol/L (136-145); Total Protein 7.4 g/dL (6.4-8.2)
[2024-05-25 17:20] LABS: Troponin I High Sensitivity 5.2 pg/mL (4.0-76.1)
[2024-05-25 17:49] LABS: Troponin I High Sensitivity 5.5 pg/mL (4.0-76.1)
[2024-05-25] MEDS: ENOXAPARIN SODIUM 100 MG/ML SYRINGE SUBQ (18:22)
--- OUTSIDE RECORDS SUMMARY | 2024-05-25 18:49 | XMS_ITS | CCD ---
Author Organization [facility] CliniSyil Care Team Providers Care Wood Piler Name Role Phone SHAIKH TORRES Primary Care [...] Sig (Normalized) Sig (Original) polyethylene glycol 3350 [id number] mg / potassium chloride 1480 mg / sodium bicarbonate 5720 mg / sodium chloride 93295 mg powder for oral solution (1 source) Osmotic Laxative Start: 08-07-2022 NuLYTELY Day oral powder for reconstitution See Instructions, 1 EA, Refill(s) 0, Prior to colonoscopy., [facility], 187.9, cm, 08/07/22 15:27:00 EST, Height/Length [...] Interpretation Reference Range Facility [facility] 10-23-2022 Consent [id number]#1. 00CD:127 Normal [facility] Discharge Instructionson Discharge Instructions [id number]#1. 00CD:[address] [facility] Main OR Intraoperative Recor don 10-23-2022 Main OR Intraoperative Record IntraOp Document Type FT Summary Primary Physician: Araceli AGGARWAL MD Finalized Date/Time: 10/23/22 07:35:16 Pt. Name: DIMPLE GERALDINE Kennedy/Sex: 1965 Male Med Rec #: [id number] Physician: Araceli AGGARWAL MD Financial #: [id number] Pt. 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 Normal [facility] Progress Note-Physicianon Progress Note-Physician Patient: GERALDINE MUSA [...] Screen for colon cancer / SNOMED CT [id number] / Confirmed Histories Procedure history: No active procedure history items have been selected or recorded. Social History Social & Psychosocial Habits Tobacco 08/07/2022 Tobacco Use: Never (less than 100 in l Smokeless tobacco use: Current vaping or e-cigar Type: Vaping . Physical Examination Airway: Mallampati classification: II (soft palate, fauces, uvula visible). Respiratory: adequate air exchange. Cardiovascular: Regular rhythm. Plan [employer] Anesthesiologists (ASA) physical status classification: Class II. Anesthetic Preoperative Plan: Anesthesia General. [facility] Comment on above: Result Comment: Elec tronically [...] meets criteria ( To home ). Normal [facility] Comment on above: Result Comment: Elec tronically Signed By: Omkar Caraballo Jr, DO\.jitendra\Date and Time Signed: 10/21/22 09:05 EDT Consent for Treatmenton 10-09 Consent for Treatment [id number] 0CD:127 Normal [facility] Discharge Instructionson Discharge Instructions SARAIGilberto GERALDINE :1965 [...] Follow Up with MARIEL WILLIAM, TAMMIE Charles, [facility] When: Within 1 to 2 weeks Comments: Office will call with date and time of follow-up appt. Where: [address] [place] [address] Follow Up with Araceli AGGARWAL When: Comments: Office will call date and time of follow-up appt. Where: [address] [place] [address] Business (1) Medications What When [...] call to (more content not included)... Normal [facility] Comment on above: Result Comment: Elec tronically [...] Return to activities:: After 24 hours. Normal [facility] Comment on above: Result Comment: Elec tronically Signed By: MARIEL WILLIAM, Araceli\.br\Date and Time Signed: 10/20/22 08:28 EDT Other Comment: Anna gomez Attachment - attachment storage system not supported [id number] Can be viewed in source systemMissing Attachment - attachment storage system not supported [id number] Can be viewed in source systemMissing Attachment - attachment storage system not supported [id number] Can be viewed in source system Inpatient Patient Summaryon 10-20-2022 Inpatient Patient Summary [place] [id number] [facility] Clinical Discharge Instructions PERSON INFORMATION Name: GERALDINE [...] rosuvastatin (rosuvastatin 10 mg Tab) Comment: Normal [facility] Main OR PACU I Recordon 10-09 Main OR PACU I Record PACU Phase I Docum ent Type FT Summary Primary Physician: Araceli AGGARWAL MD Finalized Date/Time: 10/20/22 14:32:06 Pt. Name: GERALDINE MUSA /Sex: 1965 Male Med Rec #: [id number] Physician: Araceli AGGARWAL MD Financial #: [id number] Pt. Type: O Room/Bed: / Admit/Disch: 10/20/22 [...] By: Rosa Sandhu RN 10/20/22 14:32 Normal [facility] Main OR Preoperative Recordo n 10-20-2022 Main OR Preoperative Record Holding Area Document Type FT Summary Primary Physician: Araceli AGGARWAL MD Finalized Date/Time: 10/20/22 07:20:42 Pt. Name: DIMPLEGERALDINE/Sex: 1965 Male Med Rec #: [id number] Physician: Araceli AGGARWAL MD Financial #: [id number] Pt. Type: O Room/Bed: / Admit/Disch: 10/20/22 [...] By: Billie Schmitt RN 10/20/22 07:20 Normal [facility] Monitor Recordon 10-20-2022 Monitor Record [id number]. 00CD:127 Normal [facility] Monitor Record [id number]. 00CD:127 Normal [facility] Outpatient Surgery Discharge Instructionon 10-20-2022 Outpatient Surgery Discharge Instruction [address] [address] Patient Discharge Instructions PERSON INFORMATION [...] up: Pharmacy Information: Other: [facility] [place] You may receive a survey from [employer] asking you to rate your care experience. Your feedback is important and will help us understand what we do well and how we can improve the quality of care we provide to you, your loved ones and our community. It?s an honor to serve you. Thank you for choosing [facility] HERE ARE THE MEDICATION CHANGES THAT OCCURRED DURING YOUR HOSPITAL STAY Medications to Continue with No Changes Other Medications apixaban (Eliquis) losartan (losartan 100 mg Tab) rosuvastatin (rosuvastatin 10 mg Tab) PATIENT EDUCATION INFORMATION Instructions: Medication Leaflets: Normal [facility] Patient Education - Texton 0 10-20-2022 Patient [...] or gets worse throughout the day. Normal [facility] LIPID PROFILEon 09-11-2022 CHOL-HDL RATIO NORM SEE BELOW Normal [facility] Comment on above: Result Comment: 3.3 - 4.4 LOW RISK 4.4 - 7.1 AVERAGE RISK 7.1 - 11.0 MODERATE RISK >11.0 HIGH RISK Performed By: #### L IPID #### [facility] [address] [address] [address] Svetlana Golden Cholesterol [Mass/Vol] 154 mg/dL Normal <=200 [facility] Comment on above: Performed By: #### L IPID #### [facility] [address] [address] [address] Svetlana Goledn Cholesterol in HDL [Mass/Vol] 52 mg/dL Normal 40-60 [facility] Comment on above: Performed By: #### L IPID #### [facility] [address] [address] [address] Svetlana Golden Cholesterol in LDL [Mass/Vol] 90.6 mg/dL Normal [facility] Comment on above: Performed By: #### L IPID #### [facility] [address] [address] [address] Svetlana Golden Cholesterol.total/Cho lesterol in HDL [Mass ratio] 3.0 {ratio} Normal [facility] Comment on above: Performed By: #### L IPID #### [facility] [address] [place] [address] Dr. Svetlana Golden HDL NORMAL > or = 60 mg/dl - LO W CARDIOVASCULAR RISK <40 mg/dl - HIGH CARDIOVASCULAR RISK Normal [facility] Comment on above: Performed By: #### L IPID #### [facility] [address] [address] [address] Svetlana Golden LDL CALC NORMAL SEE BELOW Normal [facility] Comment on above: Result Comment: <100 mg/dl OPTIMAL 100 - 129 mg/dl NEAR OR ABOVE OPTIMAL 130 - 159 mg/dl BORDERLINE HIGH 160 - 189 mg/dl HIGH >190 mg/dl VERY HIGH Performed By: #### L IPID #### [facility] [address] [address] [address] Svetlana Golden Triglyceride [Mass/Vol] 57 mg/dL Normal <=150 [facility] Comment on above: Performed By: #### L IPID #### [facility] [address] [address] [address] Svetlana Golden VLDL CALC 11.4 mg/dL Normal [facility] Comment on above: Performed By: #### L IPID #### [facility] [address] [address] [address] Svetlana Golden Consent for Procedure/Surger yon 08-08-2022 Consent for Procedure/Surgery [id number]. 00CD:[address] [facility] Ambulatory Visit Summaryon 0 08-07-2022 Ambulatory [...] See instructions Prior to colonoscopy. Pickup at [facility] Unchanged apixaban (Eliquis) Contact prescribing physician if questions or concerns Unchanged losartan (losartan 100 mg Tab) Contact prescribing physician if questions or concerns Unchanged rosuvastatin (rosuvastatin 10 mg Tab) Contact prescribing physician if questions or concerns Pharmacy Information [facility]: [address] [place], [place] [id number] [phone] Medications and Immunizations Administered Not Given influenza [...] including vitamins, herbs, eye drops, creams, and doon-qel-duemajw medicines. ? Any problems you or family [...] Randall (more content not included)... Normal [facility] Gastroenterology Office/Clin ic Noteon 08-07-2022 Gastroenterology [...] 1 EA, Refill(s) 0, Prior to colonoscopy., [facility], 187.9, cm, 08/07/22 15:27:00 EST, Height/Length [...] inactivated - Not Given Patient Refuses Normal [facility] Comment on above: Result Comment: Elec tronically Signed By: Arlen Littlejohn CNP\.br\Date and Time Signed: 08/07/22 15:40 EST Lab Reportson 08-07-2022 Lab Reports [id number] .[id number]:127 Normal [facility] Lab Reports [id number] 0CD:127 Normal [facility] Patient Educationon 08-07-19 23 Patient Education Radiology [...] including vitamins, herbs, eye drops, creams, and hlqv-tmm-lrlfxtq medicines. ? Any problems you or family [...] air t (more content not included)... Normal [facility] Physician Referralon 023 Physician Referral [id number] 0CD:127 Normal [facility] GLYCOHEMOGLOBIN A1Con 2021 ADA RECOMMENDATION SEE BELOW Normal [facility] Comment on above: Result Comment: ADA RECOMMENDED LIMIT 4.0 - 6.0 ADA THERAPEUTIC TARGET < 7.0 ACTION SUGGESTED > 7.0 Performed By: #### A 1C #### [facility] [address] [place] [address] Dr. Svetlana Golden Glucose [Mass/Vol] 120 mg/dL Normal [facility] Comment on above: Performed By: #### A 1C #### [facility] [address] [place] [address] Dr. Svetlana Golden HbA1c (Bld) [Mass fraction] 5.8 % Normal 4.5-6.2 [facility] Comment on above: Performed By: #### A 1C #### [facility] [address] [place] [address] Dr. Svetlana Golden LIPID PROFILEon 04-17-2022 CHOL-HDL RATIO NORM SEE BELOW Normal [facility] Comment on above: Result Comment: 3.3 - 4.4 LOW RISK 4.4 - 7.1 AVERAGE RISK 7.1 - 11.0 MODERATE RISK >11.0 HIGH RISK Performed By: #### B MP, LIPID #### [facility] [address] [place] [address] Dr. Svetlana Golden Cholesterol [Mass/Vol] 243 mg/dL Critically high <=200 [facility] Comment on above: Performed By: #### B MP, LIPID #### [facility] [address] [place] [address] Dr. Svetlana Golden Cholesterol in HDL [Mass/Vol] 53 mg/dL Normal 40-60 [facility] Comment on above: Performed By: #### B MP, LIPID #### [facility] [address] [address] [address] Svetlana Golden Cholesterol in LDL [Mass/Vol] 172.6 mg/dL Normal [facility] Comment on above: Performed By: #### B MP, LIPID #### [facility] [address] [address] [address] Svetlana Golden Cholesterol.total/Cho lesterol in HDL [Mass ratio] 4.6 {ratio} Normal [facility] Comment on above: Performed By: #### B MP, LIPID #### [facility] [address] [address] [address] Svetlana Golden HDL NORMAL > or = 60 mg/dl - LO W CARDIOVASCULAR RISK <40 mg/dl - HIGH CARDIOVASCULAR RISK Normal [facility] Comment on above: Performed By: #### B MP, LIPID #### [facility] [address] [place] [address] Dr. Svetlana Golden LDL CALC NORMAL SEE BELOW Normal [facility] Comment on above: Result Comment: <100 mg/dl OPTIMAL 100 - 129 mg/dl NEAR OR ABOVE OPTIMAL 130 - 159 mg/dl BORDERLINE HIGH 160 - 189 mg/dl HIGH >190 mg/dl VERY HIGH Performed By: #### B MP, LIPID #### [facility] [address] [address] [address] Svetlana Golden Triglyceride [Mass/Vol] 87 mg/dL Normal <=150 [facility] Comment on above: Performed By: #### B MP, LIPID #### [facility] [address] [address] [address] Svetlana Golden VLDL CALC 17.4 mg/dL Normal [facility] Comment on above: Performed By: #### B MP, LIPID #### [facility] [address] [address] [address] Svetlana Golden PROF CHEM 8 (BAS METB)on Anion gap [Moles/Vol] 7.6 mmol/L Normal [facility] Comment on above: Performed By: #### B MP, LIPID #### [facility] [address] [address] [address] Svetlana Golden Calcium [Mass/Vol] 8.8 mg/dL Normal 8.5-10.1 [facility] Comment on above: Performed By: #### B MP, LIPID #### [facility] [address] [address] [address] Svetlana Golden Chloride [Moles/Vol] 105 mmol/L Normal 98-107 [facility] Comment on above: Performed By: #### B MP, LIPID #### [facility] [address] [address] [address] Svetlana Golden CO2 [Moles/Vol] 28.0 mmol/L Normal 21.0-32.[address] [facility] Comment on above: Performed By: #### B MP, LIPID #### [facility] [address] [address] [address] Svetlana Golden Creatinine [Mass/Vol] 1.00 mg/dL Normal 0.70-1.30 [facility] Comment on above: Performed By: #### B MP, LIPID #### [facility] [address] [address] [address] Svetlana Golden EGFR-AF SERBIAN >60 Normal >=60 [facility] [place] Comment on above: Performed By: #### B MP, LIPID #### [facility] [address] [address] [address] Svetlana Golden EGFR-NON AF SERBIAN >60 Normal >=60 [facility] Comment on above: Performed By: #### B MP, LIPID #### [facility] [address] [address] [address] Svetlana Golden Glucose [Mass/Vol] 99 mg/dL Normal 74-106 [facility] Comment on above: Performed By: #### B MP, LIPID #### [facility] [address] [address] [address] Svetlana Golden Potassium [Moles/Vol] 3.6 mmol/L Normal 3.5-5.1 [facility] Comment on above: Performed By: #### B MP, LIPID #### [facility] [address] [address] [address] Svetlana Golden Sodium [Moles/Vol] 137 mmol/L Normal 136-145 [facility] Comment on above: Performed By: #### B MP, LIPID #### [facility] [address] [place] [address] Dr. Svetlana Golden Urea nitrogen [Mass/Vol] 18.0 mg/dL Normal 7.0-18.0 [facility] Comment on above: Performed By: #### B MP, LIPID #### [facility] [address] [place] [address] Dr. Svetlana Golden Urea nitrogen/Creatinine [Mass ratio] 18.0 mg/mg Normal [facility] Comment on above: Performed By: #### B MP, LIPID #### [facility] [address] [place] [address] Dr. Svetlana Golden CBC AUTO DIFFon 01-16-2022 BASO # 0.1 103/ul Normal 0.0-0.1 [facility] Comment on above: Performed By: #### C BC #### [facility] [address] [place] [address] Dr. Svetlana Golden Basophils/100 WBC (Bld) 0.8 % Normal 0.2-2.0 [facility] Comment on above: Performed By: #### C BC #### [facility] [address] [place] [address] Dr. Svetlana Golden EO # 0.2 103/ul Normal 0.0-0.7 [facility] Comment on above: Performed By: #### C BC #### [facility] [address] [place] [address] Dr. Svetlana Golden Eosinophils/100 WBC (Bld) 2.5 % Normal 0.9-7.0 [facility] Comment on above: Performed By: #### C BC #### [facility] [address] [place] [address] Dr. Svetlana Golden Erythrocyte distribution width (RBC) [Ratio] 12.4 % Normal 11.0-15.0 [facility] Comment on above: Performed By: #### C BC #### [facility] [address] [place] [address] Dr. Svetlana Golden Hematocrit (Bld) [Volume fraction] 46.4 % Normal 42.0-54.0 [facility] Comment on above: Performed By: #### C BC #### [facility] [address] [address] [address] Svetlana Golden Hemoglobin (Bld) [Mass/Vol] 15.4 g/dL Normal 14.0-18.0 [facility] Comment on above: Performed By: #### C BC #### [facility] [address] [address] [address] Svetlana Golden IG # 0.01 10e3/ul Normal 0.00-0.03 [facility] Comment on above: Performed By: #### C BC #### [facility] [address] [place] [address] Dr. Svetlana Golden IG % 0.1 % Normal 0.0-0.5 [facility] Comment on above: Performed By: #### C BC #### [facility] [address] [place] [address] Dr. Svetlana Golden LYMPH # 2.0 103/ul Normal 1.2-3.8 [facility] Comment on above: Performed By: #### C BC #### [facility] [address] [place] [address] Dr. Svetlana Golden Lymphocytes/100 WBC (Bld) 27.0 % Normal 20.5-60.0 [facility] Comment on above: Performed By: #### C BC #### [facility] [address] [place] [address] Dr. Svetlana Golden MANUAL DIFF REQ NO Normal [facility] Comment on above: Performed By: #### C BC #### [facility] [address] [place] [address] Dr. Svetlana Golden MCH (RBC) [Entitic mass] 31.9 pg Normal 25.9-34.0 [facility] Comment on above: Performed By: #### C BC #### [facility] [address] [place] [address] Dr. Svetlana Golden MCHC (RBC) [Mass/Vol] 33.2 g/dL Normal 29.9-35.2 [facility] Comment on above: Performed By: #### C BC #### [facility] [address] [address] [address] Svetlana Golden MCV (RBC) [Entitic vol] 96.1 fL Critically high 80.0-94.0 [facility] Comment on above: Performed By: #### C BC #### [facility] [address] [address] [address] Svetlana Golden MONO # 0.7 103/ul Normal 0.3-0.8 [facility] Comment on above: Performed By: #### C BC #### [facility] [address] [address] [address] Svetlana Golden Monocytes/100 WBC (Bld) 9.2 % Normal 1.7-12.0 [facility] Comment on above: Performed By: #### C BC #### [facility] [address] [place] [address] Dr. Svetlana Golden NEUT # 4.5 103/ul Normal 1.4-6.5 [facility] Comment on above: Performed By: #### C BC #### [facility] [address] [place] [address] Dr. Svetlana Golden Neutrophils/100 WBC (Bld) 60.4 % Normal 43.0-75.0 [facility] Comment on above: Performed By: #### C BC #### [facility] [address] [place] [address] Dr. Svetlana Golden Platelet mean volume (Bld) [Entitic vol] 9.7 fL Normal 9.5-13.5 [facility] Comment on above: Performed By: #### C BC #### [facility] [address] [place] [address] Dr. Svetlana Golden PLT 312 103/ul Normal 150-450 [facility] Comment on above: Performed By: #### C BC #### [facility] [address] [place] [address] Dr. Svetlana Golden RBC 4.83 106/ul Normal 4.70-6.10 [facility] Comment on above: Performed By: #### C BC #### [facility] [address] [address] [address] Svetlana Golden WBC 7.5 103/ul Normal 4.0-11.0 [facility] Comment on above: Performed By: #### C BC #### [facility] [address] [place] [address] Dr. Svetlana Golden PROF CHEM 8 (BAS METB)on Anion gap [Moles/Vol] 12.1 mmol/L Normal [facility] Comment on above: Performed By: #### B MP #### [facility] [address] [place] [address] Dr. Svetlana Golden Calcium [Mass/Vol] 9.2 mg/dL Normal 8.5-10.1 [facility] Comment on above: Performed By: #### B MP #### [facility] [address] [place] [address] Dr. Svetlana Golden Chloride [Moles/Vol] 107 mmol/L Normal 98-107 [facility] Comment on above: Performed By: #### B MP #### [facility] [address] [place] [address] Dr. Svetlana Golden CO2 [Moles/Vol] 29.8 mmol/L Normal 21.0-32.0 [facility] [place] Comment on above: Performed By: #### B MP #### [facility] [address] [place] [address] Dr. Svetlana Golden Creatinine [Mass/Vol] 0.95 mg/dL Normal 0.70-1.30 [facility] Comment on above: Performed By: #### B MP #### [facility] [address] [place] [address] Dr. Svetlana Golden EGFR-AF SERBIAN >60 Normal >=60 [facility] [place] Comment on above: Performed By: #### B MP #### [facility] [address] [place] [address] Dr. Svetlana Golden EGFR-NON AF SERBIAN >60 Normal >=60 [facility] Comment on above: Performed By: #### B MP #### [facility] [address] [place] [address] Dr. Svetlana Golden Glucose [Mass/Vol] 97 mg/dL Normal 74-106 [facility] Comment on above: Performed By: #### B MP #### [facility] [address] [place] [address] Dr. Svetlana Golden Potassium [Moles/Vol] 4.9 mmol/L Normal 3.5-5.1 [facility] Comment on above: Performed By: #### B MP #### [facility] [address] [address] [address] Svetlana Golden Sodium [Moles/Vol] 144 mmol/L Normal 136-145 [facility] Comment on above: Performed By: #### B MP #### [facility] [address] [place] [address] Dr. Svetlana Golden Urea nitrogen [Mass/Vol] 13.0 mg/dL Normal 7.0-18.0 [facility] Comment on above: Performed By: #### B MP #### [facility] [address] [place] [address] Dr. Svetlana Golden Urea nitrogen/Creatinine [Mass ratio] 13.7 mg/mg Normal [facility] Comment on above: Performed By: #### B MP #### [facility] [address] [place] [address] Dr. Svetlana Golden PROTIMEon 01-16-2022 INR Coag (PPP) [Relative time] 1.00 {INR} Normal [facility] Comment on above: Performed By: #### P TT, PT #### [facility] [address] [place] [address] Dr. Svetlana Golden INR GUIDELINES SEE BELOW Normal [facility] Comment on above: Result Comment: TOMY RED INR: 2.0 - 3.0 CONDITIONS NOT LISTED BELOW 2.5 - 3.5 FOR PROSTHETIC HEART VALVE REPLACEMENT 2.5 - 3.5 RECURRENT THROMBOSIS Performed By: #### P TT, PT #### [facility] [address] [place] [address] Dr. Svetlana Golden PT Coag (PPP) [Time] 10.8 s Normal 9.0-11.6 [facility] Comment on above: Performed By: #### P TT, PT #### [facility] [address] [place], [place] [address] Dr. Svetlana Golden PTTon 01-16-2022 aPTT Coag (Bld) [Time] 27.1 s Normal 22.3-36.2 [facility] Comment on above: Performed By: #### P TT, PT #### [facility] [address] [place], [place] [address] Dr. Svetlana Golden US YOLI DOP LEG [...] ANGEL GABRIEL Date: 2022-01-16 17:35 Normal [facility] Vital Signs Date Time Vital Sign Value Performing Clinician Facility 10-20-2022 08:55-0400 Diastolic blood pressure 90 mm[Hg] [facility] 10-20-2022 08:55-0400 Heart rate 64 /min [facility] 10-20-2022 08:55-0400 Mean blood pressure 108 mm[facility]Hg[facility] 10-20-2022 08:55-0400 Respiratory rate 20 /min Charles SALAM [facility] 10-20-2022 08:55-0400 SaO2% (BldA) [Mass fraction] 96 % Charles SALAM [facility] 10-20-2022 08:55-0400 Systolic blood pressure 145 mm[Hg] Charles SALAM [facility] 10-20-2022 08:45-0400 Diastolic blood pressure 98 mm[Hg] Charles SALAM [facility] 10-20-2022 08:45-0400 Heart rate 80 /min Charles SALAM [facility] 10-20-2022 08:45-0400 Respiratory rate 12 /min Cahrles SALAM [facility] 10-20-2022 08:45-0400 SaO2% (BldA) [Mass fraction] 97 % Charles SALAM [facility] 10-20-2022 08:45-0400 Systolic blood pressure 140 mm[Hg] Charles SALAM [facility] 10-20-2022 08:40-0400 Diastolic blood pressure 86 mm[Hg] Charles SALAM [facility] 10-20-2022 08:40-0400 Heart rate 64 /min Charles SALAM [facility] 10-20-2022 08:40-0400 Mean blood pressure 102 mm[Hg] Charles SALAM [facility] 10-20-2022 08:40-0400 Respiratory rate 19 /min Charles SALAM [facility] 10-20-2022 08:40-0400 SaO2% (BldA) [Mass fraction] 96 % Charles SALAM [facility] 10-20-2022 08:40-0400 Systolic blood pressure 135 mm[Hg] Charles SALAM [facility] 10-20-2022 08:35-0400 Mean blood pressure 94 mm[Hg] Charles SALAM [facility] 10-20-2022 08:30-0400 Blood Pressure Location Charles SALAM [facility] 10-20-2022 08:30-0400 Body temperature 97.52 [degF] Charles SALAM [facility] 10-20-2022 08:20-0400 Respiratory rate 16 /min Charles SALAM [facility] 10-20-2022 08:15-0400 Respiratory rate 17 /min Charles SALAM [facility] 10-20-2022 07:20-0400 Blood Pressure Location Charles SALAM [facility] 10-20-2022 07:20-0400 Body temperature 98.78 [degF] Charles SALAM [facility] 08-07-2022 15:23-0500 Blood Pressure Location Arlencat EppersonEron [facility] 08-07-2022 15:23-0500 Body temperature 97.7 [degF] Arlen Eron [facility] 08-07-2022 15:23-0500 Diastolic blood pressure 78 mm[Hg] Arlen Eron [facility] 08-07-2022 15:23-0500 Heart rate 72 /min Arlen Eppersonmetz [facility] 08-07-2022 15:23-0500 Systolic blood pressure 144 mm[Hg] Arlen Littlejohn [facility] Encounters Encounter Date Encounter Type Care Provider Facility Start: 11-12-2023 End: 11-12-2023 ambulatory ALEJANDRO FAWWAD Not Available Start: 05-08-2023 End: 05-08-2023 ambulatory ALEJANDRO FAWWAD Not Available Start: 10-20-2022 End: 10-21-2022 ambulatory ALEJANDRO FAWWAD Facility:[facility] Start: 10-20-2022 End: 10-20-2022 Patient encounter procedure Araceli AGGARWAL [facility] Start: 09-11-2022 End: 09-12-2022 ambulatory ALEJANDRO H FAWWAD Facility: Start: 08-07-2022 End: 08-08-2022 ambulatory ALEJANDRO FAWWAD Facility:[facility] Start: 08-07-2022 End: 08-07-2022 Patient encounter procedure Arlen Littlejohn [facility] Start: 07-11-2022 [facility]ulatory [facility] Start: 04-17-2022 End: 04-18-2022 ambulatory ALEJANDRO H FAWWAD Facility: Start: 01-16-2022 End: 01-16-[address] NONE LISTED REQUEST Facility: Procedures Date Procedure Procedure Detail Performing Clinician Start: 10-20-2022 Colonoscopic polypectomy Araceli AGGARWAL Start: 10-20-2022 Colonoscopy Araceli Rg Immunizations Immunization Date Immunization Notes Care Provider Fa cility NEGATED: Highlighted row has not occurred!08-07-2022 influenza virus vaccine, unspecified formulation Arlen Littlejohn [facility] Payers Date Payer Category Payer Unknown [id number] 1965 Unknown [id number] 2.16.84 [id number] 1965 Unknown [id number] 2.16.84 [id number] 1965 Unknown [id number] 2.16.84 [id number] 1965 Unknown [id number] 2.16.8 [id number] 1965 Unknown [id number] 2.16.8 [id number] 1965 Unknown [id number] 2.16.84 [id number] 1965 Unknown [id number] 1959 Unknown [id number] Social History Date Type Detail Facility Start: 08-07-2022 Tobacco smoking status Never s moked tobacco (finding) [facility] Sex Assigned At Male [facility] Functional Status Date Assessment Result Facility 10-20-2022 Functional Status N[facility] 08-07-2022 Functional Status N/A [facility] History and physical note 10-23-2022 Note Date & Type Note Facility 10-23-2022 Note [id number] 3#1.00CD:127 [facility] Hospital Discharge instructions 10-20-2022 Note Date & [...] Care 08/07/2022 16:03:41 With:MARIEL WILLIAM, Araceli, TAMMIE, [facility] Address: [address] [place] [phone] When:1 to 2 weeks Comments:Office will call with date and time of follow-up appt. With:Araceli AGGARWAL Address: [address] [place] [phone] Business (1) When: Unknown Comments:Office will call date and time of follow-up appt. [facility] Discharge instructions 08-07-2022 Note Date & [...] including vitamins, herbs, eye drops, creams, and [id number] medicines. Any problems you or family members [...] 05/25/2001 Document Revised: 03/20/2018 Document Reviewed: 08/08/2016 [employer] Patient Education [employer] Follow Up Care 07/11/2022 15:11:10 With:Arlen Littlejohn CNP Address: When:1 to 2 weeks Comments:Following colonoscopy. [facility] Evaluation + Plan note Note Date & Type Note Facility Evaluation + Plan note Future Appointments Appointment Date:10/20/2022 08:00:00 AM Scheduled Provider: Location:[facility] Appointment Type:Surgery FT [facility] Hospital course Narrative Note Date & Type Note Facility Hospital course Narrative No data available for this section [facility] Progress note Note Date & Type Note Facility Progress note No data available for this section [facility] Summary Purpose Family History No Family History Records FoundNo Family History Records FoundNo Family History Records Found Advance Directives No Advanced Directives Records FoundNo Advanced Directives Records FoundNo Advanced Directives Records Found Additional Source Comments Patient Care team informatio n (unrecognized section and content) Personnel Name: SHAIKH TORRES Address: Address: [address] [place] [address] Personnel Name: SHAIKH TORRES Address: Address: [address] [place] [address] (unrecognized sect ion and content) No Status Records FoundNo Status Records FoundNo Status Records Found INFORMATION SOURCE (unrecogn ized section and content) DATE CREATED AUTHOR 09/16/2022 [facility] DATE CREATED AUTHOR AUTHOR'S ORGANIZ ATION 10/23/2022 [facility] DATE CREATED AUTHOR AUTHOR'S ORGANIZ ATION 11/13/2023 [facility] EPIC FOR RECORDS PERTAINING [...] BE BASED ON THE PRIMARY CLINICAL RECORDS. [facility]. provides no warranty or guarantee of the accuracy or completeness of information in this document.
[2024-05-26] VITALS (10 sets, daily range): BP systolic 152–153; BP diastolic 81–85; PULSE 62–93; TEMP 36.4–36.9; O2SAT 92–93
[2024-05-26] MEDS: ENOXAPARIN SODIUM 100 MG/ML SYRINGE SUBQ (05:10)
--- NOTE | 2024-05-26 06:00 | ECG_ITS ---
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
[2024-05-26 06:56] LABS: Basophils Absolute Auto 0.1 10^3/uL (0.0-0.1); Basophils Percent Auto 0.7 % (0.2-2.0); Eosinophils Absolute Auto 0.4 10^3/uL (0.0-0.7); Eosinophils Percent Auto 4.7 % (0.9-7.0); Hematocrit 46.1 % (42.0-54.0); Hemoglobin 14.7 g/dL (14.0-18.0); Immature Granulocytes Abs Auto 0.01 10^3/uL (0.00-0.03); Immature Granulocytes Pct Auto 0.1 % (0.0-0.5); Lymphocytes Absolute Auto 1.5 10^3/uL (1.2-3.8); Lymphocytes Percent Auto 19.4 % (20.5-60.0); Mean Corpuscular HGB Conc 31.9 g/dL (29.9-35.2); Mean Corpuscular Hemoglobin 30.8 pg (25.9-34.0); Mean Corpuscular Volume 96.4 fL (80.0-94.0); Mean Platelet Volume 9.9 fL (9.5-13.5); Monocytes Absolute Auto 0.8 10^3/uL (0.3-0.8); Monocytes Percent Auto 10.9 % (1.7-12.0); Neutrophils Absolute Auto 4.9 10^3/uL (1.4-6.5); Neutrophils Percent Auto 64.2 % (43.0-75.0); Platelet Count 257 10^3/uL (150-450); Red Blood Count 4.78 10^6/uL (4.70-6.10); Red Cell Distribution Width 12.3 % (11.0-15.0); White Blood Count 7.6 10^3/uL (4.0-11.0)
--- NOTE | 2024-05-26 07:00 | CA_ITS ---
Patient Name: GERALDINE MUSA MR#: [id number] : 1965 Exam Date: 05/26/2024 Ordering Doctor: DECLAN CROCKER ECHOCARDIOGRAM REPORT PROCEDURE: CA ECHO DOPPLER COMPLETE INDICATIONS: Bilateral PE COMPARISON: None. DESCRIPTION: COMPLETE ECHOCARDIOGRAM Real-time transthoracic echocardiography with 2D, M-mode, spectral and color flow Doppler performed. QUALITY: Technical quality was good. LEFT VENTRICLE: Normal chamber size. Moderate concentric left ventricular hypertrophy. Global left ventricular systolic function is normal. LV EF: Estimated left ventricular ejection fraction is 55-60%. DIASTOLIC: Normal diastolic function. ATRIAL SEPTUM: LEFT ATRIUM: Normal chamber size. RIGHT ATRIUM: Normal chamber size. RIGHT VENTRICLE: Normal chamber size. Normal right ventricular systolic function. TRICUSPID VALVE: Normal mobility and thickness. No stenosis with trivial regurgitation. No evidence of pulmonary hypertension. RVSP 31 mmHg MITRAL VALVE: Normal mobility and thickness. No evidence of mitral valve stenosis. There is no mitral annular calcification. No mitral regurgitation. AORTIC VALVE: Normal trileaflet appearance. No visible sclerosis. Normal leaflet mobility. No evidence of aortic valve stenosis. No aortic regurgitation. AORTIC ROOT: Normal diameter and appearance. PULMONIC VALVE: Normal thickness and mobility. No stenosis. No regurgitation. PERICARDIUM: No evidence of pericardial effusion. IVC: Collapses with inspirations. Normal size. PLEURA: CONCLUSION: 1. Moderate concentric left ventricular hypertrophy with normal systolic function. Estimated LVEF is 55 to 60%. 2. Normal right ventricular size and systolic function. 3. No significant valvular dysfunction. 4. Normal right-sided pressures. Adult Echocardiography Procedure Report Left Ventricle LVEDD (3.7 - 5.6 cm): 4.86 cm LVESD (2.2 - 4.0 cm): 3.12 cm LVIVS thickness (0.6 - 1.2 cm): 1.39 cm LVPW thickness (0.5 - 1.0 cm): 1.20 cm e': 0.15 m/s E - e': 5.15 LVOT Max Gradient: 3.16 mm[Hg] LVOT Area (cm2): 0.89 m/s Peak Velocity (LVOT): 0.89 m/s Mean Velocity (LVOT): 0.57 m/s LVOT Diameter 2.41 cm Left Ventricular Ejection Fraction: 55-60 % Left Atrium LA Volume Index (2D A2C): 29.04 ml/m2 Left Atrium Systolic Dimension: 3.36 cm Mitral Valve MV E to A Ratio: 1.09 Mitral Valve A-Wave Peak Velocity: 0.72 m/s Mitral Valve E-Wave Peak Velocity: 0.78 m/s Right Ventricle RV Internal Diastolic Dimension: 2.85 cm Aorta AO Root Diam: 3.71 cm Ascending Ao Diam: 3.15 cm Aortic Valve AoV Area (Peak Chuy): 3.06 cm2, 3.06 cm2 AoV Area (VTI): 3.10 cm2, 3.10 cm2 Peak Velocity(Antegrade Flow): 1.33 m/s Peak Gradient(Antegrade Flow): 7.06 mm[Hg] Mean Velocity(Antegrade Flow): 0.89 m/s Mean Gradient(Antegrade Flow): 3.65 mm[Hg] Velocity Time Integral: 23.10 cm Tricuspid Valve Peak Velocity (Regurgitant Flow): 2.63 m/s, 2.25 m/s Pulmonic Valve Mean Gradient: 2.03 mm[Hg], 2.48 mm[Hg] Mean Velocity: 0.65 m/s, 0.76 m/s Peak Velocity: 1.08 m/s Peak Gradient: 4.86 mm[Hg], 4.49 mm[Hg] Right Atrium Right Atrium Systolic Pressure: 46.90 ml, 46.90 ml Dictated by: Tomy Ulloa M.D. on 05/26/2024 at 17:49 Approved by: Tomy Ulloa M.D. on 05/26/2024 at 17:53
[2024-05-26 07:27] LABS: Estimated Average Glucose 117 mg/dL; Glycohemoglobin A1C 5.7 % (4.5-6.2)
[2024-05-26 07:30] LABS: Chol HDL Ratio 4.1; Cholesterol 211 mg/dL (<=200); HDL Cholesterol 51 mg/dL (40-60); Magnesium 2.2 mg/dL (1.8-2.4); Triglycerides 102 mg/dL (<=150); VLDL CHOLESTEROL 20.4 mg/dL
[2024-05-26 07:31] LABS: Alanine Aminotransferase 26 U/L (16-63); Albumin Globulin Ratio 0.7; Albumin Level 2.8 g/dL (3.4-5.0); Alkaline Phosphatase 109 U/L (46-116); Anion Gap 11.7; Aspartate Amino Transferase 17 U/L (15-37); BUN Creatinine Ratio 14.3; Bilirubin Total 1.2 mg/dL (0.2-1.0); Calcium 8.8 mg/dL (8.5-10.1); Carbon Dioxide 29.1 mmol/L (21.0-32.0); Chloride 106 mmol/L (98-107); Estimated GFR (African America >60 (>=60 mL/min/1.73m^2); Estimated GFR (Non-African Ame >60 (>=60 mL/min/1.73m^2); Globulin 3.9 g/dL; Glucose 97 mg/dL (74-106); Potassium 3.8 mmol/L (3.5-5.1); Sodium 143 mmol/L (136-145); Total Protein 6.7 g/dL (6.4-8.2); Troponin I High Sensitivity 7.4 pg/mL (4.0-76.1)
[2024-05-26 07:36] LABS: TSH W/ REFLEX FT4 1.388 uIU/mL (0.358-3.740)
--- NOTE | 2024-05-26 08:24 | P.HP_ITS ---
HPI H&P: HPI History of Present Illness Chief complaint: chestpain Pleural effusion Narrative: 59-year-old male with past medical history of tobacco abuse, History of RLE DVT about 4 years ago, took Eliquis for 1 year, then stopped, hyperlipidemia who presented to the ER yesterday with with concerns of left-sided chest pain with movement and deep breaths started yesterday. Patient denies any recent injury or fever. He notes shortness of breath and pain with deep breath that is sharp. He denies any nausea or vomiting he denies any abdominal pain. He reports family history of blood clots in his father and brother. He denies any recent travel, surgeries or immobility. She continues to vape, he has ran out of his blood pressure and cholesterol medications. He has not yet established with Ms. Douglas in [place]. This morning he denies shortness of breath or chest pain. Has not required oxygen overnight. He has had screening colonoscopy, uncertain about PSA. ER findings: WBC's 7.6, normal coags, Cr 0.91, CTA chest showed: small acute bilateral PE's without evidence of heart strain with mild to moderate right pleural effusion Opioid HPI Opioid Management Most Recent Pain and Opioid Data: Last Pain Scale 5 05/25/24 16:36 05/25/24 Last Pain Assessment 05/26/24 10:00 Last MAR Pain Assessment 05/25/24 16:36 Last ORT Total Score 0 05/25/24 19:55 05/25/24 Last ORT Risk Category Low Risk 05/25/24 19:55 05/25/24 Review of Systems ROS Narrative ROS: a complete review of systems were reviewed with patient and are positive as below or listed in History of Chief Complaint. General: no fever, chills, night sweats Head: no headache, trauma, visual changes, nausea or vomiting Skin: no reported rashes, itching or sores Eyes: no blurriness of vision Ears: no reported hearing loss, vertigo, earache, or tinnitus Throat: no sore throat, hoarseness, swelling of neck, or tongue pain Heart: no chest pain Lungs: shortness of breath, no cough GI: no diarrhea or vomiting/nausea Urinary: no urinary urgency, frequency or pain Neuro: no numbness or tingling HEM: no bleeding issues or bruising ENDO: no thyroid problems Psych: no anxiety or depression [facility] Medical History (Updated 05/26/24 @ 11:00 by Vee Rosales DO) History of deep venous thrombosis (DVT) of distal vein of right lower extremity ?Z86.718 - Personal history of other venous thrombosis and embolism (ICD-10) Hyperlipidemia ?E78.5 - Hyperlipidemia, unspecified (ICD-10) Hypertension ?I10 - Essential (primary) hypertension (ICD-10) Blood clot in leg Social History Within the past year, how often did you have a drink containing alcohol: monthly or less Within the past year, how many standard drinks containing alcohol did you have on a typical day: 1 or 2 Total score: 0 Score interpretation: A score less than 4 is consistent with normal alcohol consumption. Smoking status: Current every day smoker Nicotine containing products detail: vape Non-prescribed substance use: denies use Previous occupational history: [employer] Highest level of school completed/degree received: some college, no degree Are you now , , , , never or living with a partner: In a typical week, how many times do you talk on the telephone with family, friends, or neighbors: 3 or more times per week How often do you get together with friends or relatives: 3 or more times per we ek How often do you attend pentecostal or caodaism services: never Do you belong to any clubs or organizations such as pentecostal groups unions, fra [employer] or athletic groups, or school groups: no Total score: 2 Score interpretation: A score of greater than or equal to 2 indicates the lowest level of social isolation. Little interest or pleasure in doing things: not at all Feeling down, depressed, or hopeless: not at all Feel stressed/tense/nervous/anxious/difficulty sleeping: not at all Meds Home Medications and Allergies Home Medications ?Medication ?Instructions ?Recorded ?Confirmed ?Type No Known Home Medications 05/25/24 05/25/24 History Allergies Allergy/AdvReac Type Severity Reaction Status Date / Time No Known Drug Allergies Allergy Verified 05/25/24 16:07 Exam Narrative Exam Narrative: General: Patient is alert, and oriented to person, place and time with normal affect, proper hygiene Skin: no visible rashes, or ulcers Head: atraumatic, acephalic Eyes: PERRLA, no nystagmus present, conjunctiva clear, no scleral icterus Ears: normal gross auditory acuity Nose: symmetric, no discharge, no maxillary or frontal sinus tenderness Mouth/Throat: no erythema, exudate, or tonsillar enlargement, normal dentition Neck: no masses palpated, normal thyroid, no JVD or audible carotid bruits Heart: Normal rate and rhythm, no murmurs/rubs/gallops Lungs: no audible wheezes, crackles and normal breath sounds all lung mckeon Abdomen: Normal audible bowel sounds, no distension, No palpable masses, no organomegaly, no rebound/guarding/ or rigidity Musculoskeletal: no swelling bilateral lower extremities Neuro: CN II-X grossly intact Constitutional Vital Signs, click to edit/add: Last Vital Signs Temp 97.6 F 05/26/24 05:09 Pulse 89 05/26/24 08:00 Resp 22 H 05/26/24 05:09 BP 152/85 H 05/26/24 05:09 Pulse Ox 93 L 05/26/24 05:10 O2 Del Method Room Air 05/26/24 05:10 Results Labs Labs: Short CBC 05/25/24 05/26/24 Range/Units 16:25 06:20 WBC 11.4 H 7.6 (4.0-11.0) 10^3/uL Hgb 15.1 14.7 (14.0-18.0) g/dL Hct 47.3 46.1 (42.0-54.0) % Plt Count 272 257 (150-450) 10^3/uL BMP 05/25/24 05/26/24 16:25 06:20 Sodium 140 143 Potassium 4.1 3.8 Chloride 105 106 Carbon Dioxide 30.6 29.1 BUN 16.0 13.0 Creatinine 1.08 0.91 Glucose 141 H 97 Calcium 9.0 8.8 Liver Function 05/25/24 05/26/24 Range/Units 16:25 06:20 Total Bilirubin 0.7 1.2 H (0.2-1.0) mg/dL AST 16 17 (15-37) U/L ALT 31 26 (16-63) U/L Alkaline Phosphatase 127 H 109 (46-116) U/L Albumin 3.2 L 2.8 L (3.4-5.0) g/dL Assessment and Plan Assessment and Plan (1) Bilateral pulmonary embolism: Assessment and Plan: Patient was placed on therapeutic lovenox, will be transitioned to Eliquis today. oxygen saturations have remained well on room air. patient to get Echo today. Close follow up with PCP once discharged. (2) Pleural effusion on right: Assessment and Plan: most likely from acute PE, no heart strain seen on CTA. Echo today. Normal trops and proBNP (3) Hypertension: Assessment and Plan: will start coreg 3.125mg BID. Qualifiers: Hypertension type: primary hypertension Qualified Code(s): I10 - Essential (primary) hypertension (4) Hyperlipidemia: Assessment and Plan: Will restart atorvastatin 10mg daily Qualifiers: Hyperlipidemia type: unspecified Qualified Code(s): E78.5 - Hyperlipidemia, unspecified (5) History of deep venous thrombosis (DVT) of distal vein of right lower extremity: Assessment and Plan: 2019, completed 1 year of eliquis in 2020 Plan patient is a full code patient is observation status currently on therapeutic lovenox, transition to Eliquis today, Discharge with close outpatient follow up with PCP for Echo results.
[2024-05-26] MEDS: CARVEDILOL 3.125 MG TABLET PO (09:45)
--- NOTE | 2024-05-26 10:18 | SWNOTE1 ---
MUKESH consulted for Advanced Directives. SW spoke to pt about Advanced Directives and the benefits of completing one. At this time pt does not want to complete one. He would like to speak with his . SW provided pt with an Advanced Directive booklet and advised to call SW if him and would like to complete one. He voiced understanding. Pt is independent and has no discharge needs at this time.
--- NOTE | 2024-05-26 11:13 | PM.DS1 ---
DS: Providers Provider Date of admission: 05/25/24 18:43 Primary care physician: Shaikh Brian MD Consults: 05/25/24 Consult to Strategic Planning Analyst Routine Reason for consult:: Advanced Directives DS: Diagnosis Discharge Diagnosis (1) Bilateral pulmonary embolism: (2) Pleural effusion on right: (3) Hypertension: Qualifiers: Hypertension type: primary hypertension Qualified Code(s): I10 - Essential (primary) hypertension (4) Hyperlipidemia: Qualifiers: Hyperlipidemia type: unspecified Qualified Code(s): E78.5 - Hyperlipidemia, unspecified (5) History of deep venous thrombosis (DVT) of distal vein of right lower extremity: DS: Summary Hospital Course Hospital Course: please see H&P dated 05/26/24 Status at Discharge Overall status at discharge: patient is back to baseline Time Spent with Patient Time attestation: Total time spent providing and/or coordinating discharge services: Time spent: greater than 30 minutes Exam Narrative Exam Narrative: no change from admitted H&P dated 05/26/24 Constitutional Vital Signs, click to edit/add: Last Vital Signs Temp 98.4 F 05/26/24 08:00 Pulse 79 05/26/24 09:56 Resp 18 05/26/24 08:00 BP 153/81 H 05/26/24 08:00 Pulse Ox 93 L 05/26/24 10:14 O2 Del Method Room Air 05/26/24 10:14 DS: Data Data Completed and Pending Labs on day of discharge: Labs from last 24 hours 05/26/24 05/26/24 05/25/24 06:20 06:09 17:29 WBC 7.6 RBC 4.78 Hgb 14.7 Hct 46.1 MCV 96.4 H MCH 30.8 MCHC 31.9 RDW 12.3 Plt Count 257 MPV 9.9 Neut % (Auto) 64.2 Lymph % (Auto) 19.4 L Bradford % (Auto) 10.9 Eos % (Auto) 4.7 Baso % (Auto) 0.7 Neut # (Auto) 4.9 Lymph # (Auto) 1.5 Bradford # (Auto) 0.8 Eos # (Auto) 0.4 Baso # (Auto) 0.1 Abs Immat Gran (auto) 0.01 Imm/Tot Granulo (auto) 0.1 PT INR APTT Sodium 143 Potassium 3.8 Chloride 106 Carbon Dioxide 29.1 Anion Gap 11.7 BUN 13.0 Creatinine 0.91 Est GFR ( Amer) >60 Est GFR (Non-Af Amer) >60 BUN/Creatinine Ratio 14.3 Glucose 97 Estimat Average Glucose 117 Hemoglobin A1c 5.7 Calcium 8.8 Magnesium 2.2 Total Bilirubin 1.2 H AST 17 ALT 26 Alkaline Phosphatase 109 Troponin I High Sens 7.4 5.5 NT-Pro-B Natriuret Pep 65.0 Total Protein 6.7 Albumin 2.8 L Globulin 3.9 Albumin/Globulin Ratio 0.7 Triglycerides 102 Cholesterol 211 H LDL Cholesterol, Calc 140.0 VLDL Cholesterol 20.4 HDL Cholesterol 51 Cholesterol/HDL Ratio 4.1 Lipase TSH & Free T4 Interp 1.388 05/25/24 16:25 WBC 11.4 H RBC 4.85 Hgb 15.1 Hct 47.3 MCV 97.5 H MCH 31.1 MCHC 31.9 RDW 12.3 Plt Count 272 MPV 9.9 Neut % (Auto) 70.6 Lymph % (Auto) 15.9 L Bradford % (Auto) 8.7 Eos % (Auto) 4.0 Baso % (Auto) 0.5 Neut # (Auto) 8.1 H Lymph # (Auto) 1.8 Bradford # (Auto) 1.0 H Eos # (Auto) 0.5 Baso # (Auto) 0.1 Abs Immat Gran (auto) 0.04 H Imm/Tot Granulo (auto) 0.3 PT 10.2 INR 0.96 APTT 27.9 Sodium 140 Potassium 4.1 Chloride 105 Carbon Dioxide 30.6 Anion Gap 8.5 BUN 16.0 Creatinine 1.08 Est GFR ( Amer) >60 Est GFR (Non-Af Amer) >60 BUN/Creatinine Ratio 14.8 Glucose 141 H Estimat Average Glucose Hemoglobin A1c Calcium 9.0 Magnesium Total Bilirubin 0.7 AST 16 ALT 31 Alkaline Phosphatase 127 H Troponin I High Sens 5.2 NT-Pro-B Natriuret Pep Total Protein 7.4 Albumin 3.2 L Globulin 4.2 Albumin/Globulin Ratio 0.8 Triglycerides Cholesterol LDL Cholesterol, Calc VLDL Cholesterol HDL Cholesterol Cholesterol/HDL Ratio Lipase 32.0 TSH & Free T4 Interp Discharge Plan Discharge Disposition: Home, Self-Care Condition: Good Discharge Medications: New atorvastatin 10 mg Tablet 10 mg PO QHS 30 Days Qty: 30 0RF carvedilol 3.125 mg Tablet 3.125 mg PO BID 30 Days Qty: 60 0RF Eliquis 5 mg tablet 5 mg PO .asdirected Qty: 70 0RF Rx Instructions: take 2 tablets (10mg) PO BID x 7 days, Then 1 tablet (5mg) PO BID Activity: increase activity as tolerated Diet: advance to your usual diet Print Language: Bengali Forms: Portal Instructions Follow Up Appointments: Holly Clark, Dec., 2023 at 11:30 Please give Patient work note until evaluated by PCP tomorrow
--- NOTE | 2024-05-26 11:25 | CM.NOTE ---
Rounds made with Dr. Rosales. Potential plan for discharge today after Echo. Copay card for Janelle given to Mr. Potts.
[2024-05-26] MEDS: APIXABAN 5 MG TABLET 10 MG PO (11:36)
--- NOTE | 2024-05-27 14:29 | CM.DCFOLLOWU ---
1st attempt 05/27/24, no answer
--- NOTE | 2024-05-28 10:50 | CM.DCFOLLOWU ---
Person spoke with:patient How are you feeling?well, still a little sore How is your pain? minimal Did you understand your discharge instructions?yes Do you have any questions about your discharge instructions?no Were you given any prescriptions at discharge? yes Were you able to get your prescriptions filled?yes Do you understand how to take your medications as ordered?yes Do you have any questions about your follow up appointment and do you plan to keep your follow up appointment? no questions, had follow up 05/27 Is there anything else that you would like to discuss? no Questions/Comments/Concerns/Other: none
== END 2024-05-26 12:10 | disposition home or self-care (01) ==
LOC: ER 18:20 → MS 18:47
PROVIDERS: Personal Emergency Response Attendant; Registered Nurse; Admitting Provider Family Medicine; Emergency Provider Student in an Organized Health Care Education/Training Program; PCP Internal Medicine; Visit Provider Family Medicine
DX: I26.99 Other pulmonary embolism without acute cor pulmonale (principal); T46.5X6A Underdosing of other antihypertensive drugs, initial encounter; T46.6X6A Underdosing of antihyperlipidemic and antiarteriosclerotic drugs, initial encounter; Z91.128 Patient's intentional underdosing of medication regimen for other reason; J91.8 Pleural effusion in other conditions classified elsewhere; I10 Essential (primary) hypertension; F17.290 Nicotine dependence, other tobacco product, uncomplicated; E78.5 Hyperlipidemia, unspecified; Z86.718 Personal history of other venous thrombosis and embolism; Z86.72 Personal history of thrombophlebitis; Z82.49 Family history of ischemic heart disease and other diseases of the circulatory system; Z71.6 Tobacco abuse counseling
CPT/HCPCS: 36415; 71275; 80053; 80061; 83036; 83690; 83735; 83880; 84443; 84484; 85025; 85610; 85730; 93005; 93306; 94761; 96372; 96374; 99285; 99406; G0378; J1650; J1885; Q9967

== ENCOUNTER 2024-12-11 09:00 | Outpatient (OUT) | payer OTHER, SELFPAY ==
--- OUTSIDE RECORDS SUMMARY | 2024-12-11 09:05 | XMS_ITS | Clinical Summary ---
Author Organization [facility] Healthcare Address [address] [place] [address] Care Team Providers Care Hospitality House Supervisor Name Role Phone Jefferson Amador MD Primary Care Provider [phone] Holly Douglas BUSINESS SERVICES ASSOCIATE Unavailable [phone] Allergies No known active allergies Medications atorvastatin (Lipitor) 10 MG tabletIndications:M ixed hyperlipidemia Take 1 tablet (10 mg) by mouth at bedtime 90 tablet 5 12/15/19 25 Active carvedilol (Coreg) 3.125 MG tabletIndications:P rimary hypertension Take 1 tablet (3.125 mg) by mouth in the morning and 1 tablet (3.125 mg) in the evening. Take with meals. 180 tablet 5 12/15/19 25 Active apixaban (Eliquis) 5 MG tabletIndications:H istory of blood clots,Family history of pulmonary embolism Take 1 tablet (5 mg) by mouth every 12 (twelve) hours 180 tablet 1 5 12/15/19 25 Active Active Problems Problem Noted Date Diagnosed Date Prostate cancer screening 09/15/2024 Family history of pulmonary embolism 05/27/2024 History of pulmonary embolism 05/27/2024 Assessment & Plan (09/15/2024 7:23 PM EDT): Noted in 05/2024, also hx of DVT's Life long anti coagulation. No chest pain/pressure Assessment & Plan (05/27/2024 12:59 PM EST): Personal and family Hx of DVT's. Pt was on Eliquis with previous provider Eliquis was discontinued on 11/2023 after one year and follow up negative US. Recently was seen in ED on 05/25 and admitted until 05/27 for DVT and bilateral PE. Inpatient pt was treated with Lovenox for PE. Pt was discharged on Eliquis 10mg PO BID X7 days then 5mg PO BID. Pt reports he has been unable to get Eliquis filled due to insurance issues. Will provide samples in office today and refill RX. Discussed with patient the potential side effects of this medication, potential interactions, and directions on how to take medication. Provided opportunity for questions and answers. Advised pt he can consult pharmacist at any time if further questions arise in the future. Pt reports his brother was having testing done for Factor V. Is requesting to see service crew supervisor to discuss testing options as well. Referral sent to Dr. Reynoso. Pt ok to return to work on Sunday06/02/2024. Arthropathy of lumbar facet joint 11/12/2023 Degeneration of lumbosacral intervertebral disc 11/12/2023 Lumbosacral spondylosis without myelopathy 11/11 Arthritis 05/08/2023 Deep vein thrombosis (DVT) o f femoral vein of right lower extremity 05/08/2023 Assessment & Plan (11/12/2023 3:37 PM EDT): Diagnosied 10/01, unprovoked DVT. C/w Eliquis. Repeat US and if resolved - can discontinue eliquis HLD (hyperlipidemia) 05/08/2023 Assessment & Plan (09/15/2024 7:30 PM EDT): On statin therapy, has been out for about a month or so Check labs yearly and prn dose changes HTN (hypertension) 05/08/2023 Assessment & Plan (09/15/2024 7:30 PM EDT): Please check blood pressure daily and record DASH diet Limit caffeine Take medication as directed Contact office if chest pain, pressure, dizziness, shortness of breath, swelling legs Recommend slow position changes Current meds: b hyun restart Assessment & Plan (11/12/2023 3:35 PM EDT): On Losartan. BP is well controlled. C/w same dose Denies adverse effects. Wellness examination 05/08/2023 Resolved Problems Problem Noted Date Diagnosed Date Resolved Date Closed fracture of first lumbar vertebra 11/12/2023 09/15/2024 Closed fracture of second lumbar vertebra 11/12/2023 09/15/2024 Blood pressure elevated with out history of HTN 05/08/2023 09/15/2024 Edema of left ankle 05/08/2023 09/16/19 25 Edema of right ankle 05/08/2023 025 Edema of right foot 05/08/2023 09/16/19 25 History of blood clots 05/08/202309/15 Compression fracture of L1 v ertebra with routine healing 05/08/2023 09/15/2024 Encounters Date Type Department Care Team Description 10/27/2024 Telephone [facility] [address] [place] [address] Ileana Herrera NP More info needed to get Eliquis 09/16/2024 Orders Only [facility] [address] [place] [address] Araceli Aggarwal MD 09/15/2024 7:00 PM EDT Office Visit [facility] [address] [place] [address] Ileana Herrera NP Primary hypertension (Primary Dx); 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); Mixed hyperlipidemia ; Prostate cancer screening; History of pulmonary embolism; History of blood clots; Family history of pulmonary embolism 09/15/2024 Bamboo flowsheet [facility] [address] [place] [address] Ileana Herrera NP from Last 3 Months Immunizations Immunization Administration Dates Next Due DTP 02/26/2021 Family History Medical History Relation Name Comments Emphysema Mother Relation Name Status Comments Mother Social History Tobacco Use Types Packs/Day Years Used Date Smoking Tobacco: Former Cigarettes 0.5 15 Passive Smoke Exposure: Past Smokeless Tobacco: Never Tobacco Cessation:Counseling Given: Not Answered Alcohol Use Standard Drinks/Week Comments Never 0 (1 standard drink = 0.6 oz pur e alcohol) Humiliation, Afraid, Rape, and Kick questionnair e Answer Date Recorded Within the last year, have y ou been afraid of your partner or ex-partner? No 05/08/2023 Within the last year, have y ou been humiliated or emotionally abused in other ways by your partner or ex-partner? No Within the last year, have y ou been kicked, hit, slapped, or otherwise physically hurt by your partner or ex-partner? No 05/08/2023 Within the last year, have y ou been raped or forced to have any kind of sexual activity by your partner or ex-partner? No 05/08/2023 Social Connection and Isolat ion Panel [NHANES] Answer Date Recorded In a typical week, how many times do you talk on the phone with family, friends, or neighbors? More than three times a week 05/08/2023 How often do you get togethe r with friends or relatives? Once a week 05/08/2023 How often do you attend [facility] or sabianist services? Never 05/08/2023 Do you belong to any clubs o r organizations such as worship groups, unions, fraternal or athletic groups, or school groups? No 05/08/2023 How often do you attend meet ings of the clubs or organizations you belong to? Never 05/08/2023 Are you , , di vorced, , never , or living with a partner? 05/08/2023 AUDIT-C Answer Date Recorded Q1: How often do you have a drink containing alc ohol? Monthly or less 05/08/2023 Q2: How many drinks containi ng alcohol do you have on a typical day when you are drinking? 1 or 2 05/08/2023 Q3: How often do you have si x or more drinks on one occasion? Never 05/08/2023 Overall Financial Resource Strain (CARDIA) Answe r Date Recorded How hard is it for you to pa y for the very basics like food, housing, medical care, and heating? Not hard at all 05/08/2023 PHQ-2 Answer Date Recorded Patient Health Questionnaire-2 Score 0 11/12/2023 [facility] - Occupational Stress Questionnaire Answer Date Recorded Do you feel stress - tense, restless, nervous, or anxious, or unable to sleep at night because your mind is troubled all the time - these days? Not at all 05/08/2023 Exercise Vital Sign Answer Date Recorde d On average, how many days pe r week do you engage in moderate to strenuous exercise (like a brisk walk)? 2 days 05/08/2023 On average, how many minutes do you engage in exercise at this level? 40 min 05/08/2023 Hunger Vital Sign Answer Date Recorded Within the past 12 months, y ou worried that your food would run out before you got the money to buy more. Never true 05/08/20 23 Within the past 12 months, t he food you bought just didn't last and you didn't have money to get more. Never true 05/08/2023 PRAPARE - Transportation Answer Date Re corded In the past 12 months, has l ack of transportation kept you from medical appointments or from getting medications? No 04/12 In the past 12 months, has l ack of transportation kept you from meetings, work, or from getting things needed for daily living? No 05/08/2023 Housing Stability Vital Sign Answer Mushtaq e Recorded In the last 12 months, was t here a time when you were not able to pay the mortgage or rent on time? No 05/08/2023 Number of Places Lived in the Last Year Not on f ile 05/08/2023 In the last 12 months, was t here a time when you did not have a steady place to sleep or slept in a alf (including now)? No 05/08/2023 Sex and Gender Information Value Date Recorded Sex Assigned at Not on file Legal Sex Male 3:41 PM EST Gender Identity Not on file Sexual Orientation Not on file Last Filed Vital Signs Vital Sign Reading Time Taken Comments Blood Pressure 148/76 09/15/2024 7:29 PM EDT Pulse 68 09/15/2024 7:06 PM EDT Temperature 36.6 C (97.8 F) 09/15/2024 7:06 PM EDT Respiratory Rate 18 09/15/2024 7:06 PM EDT Oxygen Saturation 97% 09/15/2024 7:06 PM EDT Inhaled Oxygen Concentration - - Weight 101 kg (222 lb 12.8 oz) 09/15/2024 7:06 P M EDT Height 188 cm (6' 2 ) 05/27/2024 11:31 AM EST Body Mass Index 28.61 05/27/2024 11:31 AM EST Plan of Treatment Upcoming Encounters Date Type Department Care Team (Late st Contact Info) Description 12/15/2024 7:00 PM EDT Office Visit [facility] [address] [place] [address] Ileana Herrera NP [address] [place] [address] Health Maintenance Due Date Last Done Comments CT Colonography 1965 FIT-DNA 1965 FIT 1965 FOBT 1965 Sigmoidoscopy 1965 Influenza Vaccine (#1) 2025 Colonoscopy 10/20/2029 Colorectal Cancer Screening 10/20/2029 Procedures Procedure Name Priority Date/Time Associated Diagnosis Comments ILEOSCOPY Routine 09/16/2024 8:45 AM EDT from Last 3 Months Results * Ileoscopy (09/16/2024 8:45 AM EDT) Anatomical Region Laterality Modality Endoscopy Araceli Aggarwal MD ENDOSCOPY PROCEDURE ORDERABLES F inal Result from Last 3 Months Insurance [employer] Care Teams Hospitality House Supervisor Relationship Specialty Start Date End Date Jefferson Amador MD [address] [place] [address] PCP - General Family Medicine 03/05/24 Holly Douglas NP [address] [place] [address] Nurse Practitioner Family Medicine 03/05/24
--- OUTSIDE RECORDS SUMMARY | 2024-12-11 09:05 | XMS_ITS | Encounter Summary ---
Author Organization [facility] Address [address] [place] [address] Care Team Providers Care Liquid Compounder Name Role Phone Jefferson Amador MD Primary Care Provider Holly Douglas RIVET TOSSER Unavailable [phone] Encounter Details Date Type Department Care Team (Late st Contact Info) Description 09/16/2024 Orders Only [facility] [address] [place] [address] Araceli Aggarwal MD [address] [place] [address] Social History Tobacco Use Types Packs/Day Years Used Date Smoking Tobacco: Former Cigarettes 0.5 15 Passive Smoke Exposure: Past Smokeless Tobacco: Never Alcohol Use Standard Drinks/Week Comments Never 0 [...] week 05/08/2023 How often do you attend chur ch or mandaeism services? Never 05/08/2023 Do you belong to any clubs o r organizations such as bahai groups, unions, fraternal or athletic groups, or [...] Recorded Patient Health Questionnaire-2 Score 0 11/12/2023 [facility] Occupat ional Health - Occupational Stress [...] place to sleep or slept in a care home (including now)? No 05/08/2023 Sex and Gender Information Value Date Recorded Sex Assigned at Not on file Legal Sex Male 3:41 PM EST Gender Identity Not on file Sexual Orientation Not on file documented as of this encounter Plan of Treatment Upcoming Encounters Date Type Department Care Team (Late st Contact Info) Description 12/15/2024 7:00 PM EDT [facility] [address] [place] [address] Ileana Herrera NP [address] [place] [address] documented as of this encounter Procedures Procedure Name Priority Date/Time Associated Diagnosis Comments ILEOSCOPY Routine 09/16/2024 8:45 AM EDT documented in this encounter Results * Ileoscopy (09/16/2024 8:45 AM EDT) Anatomical Region Laterality Modality Endoscopy Araceli Aggarwal MD ENDOSCOPY PROCEDURE ORDERABLES F inal Result documented in this encounter Visit Diagnoses Not on filedocumented in this encounter Care Teams Liquid Compounder Relationship Specialty Start Date End Date Jefferson Amador MD [address] [place] [address] PCP - General Family Medicine 03/05/24 Holly Douglas NP [address] [place] [address] Nurse Practitioner Family Medicine 03/05/24 documented as of this encounter
--- OUTSIDE RECORDS SUMMARY | 2024-12-11 09:06 | XMS_ITS | Patient Health Record ---
Author Organization [facility] [place] Address [address] [place] [address] Care Team Providers Care Remelt Sugar Boiler Name Role Phone Brian WILLIAM, Espinoza Primary Care Provider Unavaila ble Reason For Referral No Information Problems Problem Type SNOMED Code ICD Code Onset Dates Problem Status W/U Status Risk Notes Problem Hyperlipidemia (E78.5) Active confirmed Problem Hypertension (96280445) Hypertension (I10) Active confirmed Plan Of Treatment No Information Insurance Providers Payer Name Payer Address Payer Phone Subscriber Number Group Number Insured Name Patient Relationship to Insured Coverage Start Date Coverage End Date [employer] ACCESS PPO PLUS LOCAL PLAN [address] [place] [address] [id number] ABC.Mian Ochoa Self - patient is the insured
--- OUTSIDE RECORDS SUMMARY | 2024-12-11 09:06 | XMS_ITS | Encounter Summary ---
Author Organization [facility] Address [address] [place] [address] Care Team Providers Care Prefabricated Houses Trimmer Name Role Phone Jefferson Amador MD Primary Care Provider [phone] Holly Douglas NP Unavailable [phone] Shaikh NATALIIA Torres Unavailable [phone] Encounter Details Date Type Department Care Team (Late st Contact Info) Description 05/25/2024 Clinisync Result Encounter [facility] External Department Unsolicited Wang Christina, PA [address] [facility] [address] [place], [place] [id number] Social History Tobacco Use Types Packs/Day Years [...] often do you attend chur ch or synagogue services? Never 05/08/2023 Do you belong to any clubs o r organizations such as baptism groups, unions, fraternal or athletic groups, or [...] Recorded Patient Health Questionnaire-2 Score 0 11/12/2023 [facility] Occupat ional Health - Occupational Stress [...] place to sleep or slept in a fdc (including now)? No 05/08/2023 Sex and Gender Information Value Date Recorded Sex Assigned at Not on file Legal Sex Male 3:41 PM EST Gender Identity Not on file Sexual Orientation Not on file documented as of this encounter Plan of Treatment Upcoming Encounters Date Type Department Care Team (Late st Contact Info) Description 12/15/2024 7:00 PM EDT Office Visit [facility] [address] [place] [address] Ileana Herrera NP [address] [place] [address] documented as of this encounter Procedures Procedure Name Priority Date/Time Associated Diagnosis Comments ECG 12-LEAD 05/25/2024 4:19 PM EST documented in this encounter Results * ECG 12-LEAD (05/25/2024 4:19 PM EST) Anatomical Region Laterality Modality Other 05/25/2024 4:19 PM EST Narrative 05/25/2024 8:43 PM EST The [address] [address] Electrocardiograph Report Signed Patient: GERALDINE MUSA MR#: [id number] : 1965 Acct:[id number] Age/Sex: 59 / M ADM Date: 05/25/24 Loc: [place] 204-[address]: Vee Rosales D.O. Ordering Physician: Wang Christina Date of Service: 05/25/24 Procedure(s): ECG 12 lead Accession Number(s): [id number] cc: [facility] Test Date: 2024-05-25 Pat Name: GERALDINE MUSA Department: Room: - Gender: Male Bass Guitar Teacher: : 1965 Requested By: SHAIKH JOSELYN Order Number: [id number] Reading MD: TIM GRIFFITH Measurements Intervals Se[place] Rate: 87 P: 45 MO: 148 QRS: -10 QRSD: 104 T: 31 QT: 374 QTc: 418 Interpretive Statements 1100 Sinus rhythm 1470 with occasional supraventricular premature complexes 9140 abnormal rhythm ECG Compared to ECG 01/28/2019 06:29:41 No significant changes Electronically Signed On 05-25-2024 20:43:10 EST by TIM GRIFFITH Dictated By: Tim Griffith D.O. Signed By: 05/25/242042 DD/ 18 TD/TT: Commissioning Specialist: Procedure Note Radiology, Radiologist, MD - 05/26/2024 [place] [address] Electrocardiograph Report Signed Patient: GERALDINE MUSAMR#: [id number] : 1965Acct:[id number] Age/Sex: 59 / MADM Date: 05/25/24 Loc: MS 204-[address]: Vee Rosales D.O. Ordering Physician: Wang Christina Date of Service: 05/25/24 Procedure(s): ECG 12 lead Accession Number(s): [id number] cc: [facility] Test Date: 2024-05-25 Pat Name: GERALDINE MUSA Department: Room: - Gender: Male Bass Guitar Teacher: : 1965 Requested By: SHAIKH JOSELYN Order Number: [id number] Reading MD: TIM GRIFFITH Measurements Intervals Seymour Rate: 87 P: 45 MO: 148 QRS: -10 QRSD: 104 T: 31 QT: 374 QTc: 418 Interpretive Statements 1100 Sinus rhythm 1470 with occasional supraventricular premature complexes 9140 abnormal rhythm ECG Compared to ECG 01/28/2019 06:29:41 No significant changes Electronically Signed On 05-25-2024 20:43:10 EST by TIM GRIFFITH Dictated By: Tim Griffith D.O. Signed By:05/25/242042 DD/ 18 TD/TT: Commissioning Specialist: us Wang [facility] Final Resul t documented in this encounter Visit Diagnoses Not on filedocumented in this encounter Care Teams Prefabricated Houses Trimmer Relationship Specialty Start Date End Date Jefferson Amador MD [address] [place] [address] PCP - General Family Medicine 03/05/24 Shaikh Torres MD [address] [place] [address] [facility] 06/11/24 Holly Douglas NP [address] [place] [address] Nurse Practitioner Family Medicine 03/05/24 documented as of this encounter
--- OUTSIDE RECORDS SUMMARY | 2024-12-11 09:06 | XMS_ITS | Encounter Summary ---
Author Organization [facility] Address [address] [place] [address] Care Team Providers Care Point Of Care Technician Name Role Phone Shaikh NATALIIA Torres Primary Care Provider [phone] Shaikh NATALIIA Torres Primary Care Provider [phone] Jefferson Amador MD Primary Care Provider [phone] Holly Douglas NP Unavailable [phone] Shaikh NATALIIA Torres Unavailable [phone] Encounter Details Date Type Department Care Team (Late st Contact Info) Description 06/07/2023 Abstract [facility] [address] [place] [address] Shaikh Torres MD [address] [place] [address] Social History Tobacco Use Types Packs/Day Years Used Date Smoking Tobacco: Former Cigarettes 0.5 15 Smokeless Tobacco: Never Alcohol Use Standard Drinks/Week [...] often do you attend chur ch or orthodoxy services? Never 05/08/2023 Do you belong to any clubs o r organizations such as jew groups, unions, fraternal or athletic groups, or [...] and heating? Not hard at all 05/08/2023 [facility] - Occupational [...] place to sleep or slept in a chcf (including now)? No 05/08/2023 Sex and Gender Information Value Date Recorded Sex Assigned at Not on file Legal Sex Male 3:41 PM EST Gender Identity Not on file Sexual Orientation Not on file documented as of this encounter Plan of Treatment Upcoming Encounters Date Type Department Care Team (Late st Contact Info) Description 12/15/2024 7:00 PM EDT Office Visit [facility] [address] [place] [address] Ileana Herrera NP [address] [place] [address] documented as of this encounter Visit Diagnoses Not on filedocumented in this encounter Care Teams Point Of Care Technician Relationship Specialty Start Date End Date Shaikh Torres MD PCP - General Internal Medicine 04/17/23 11/11/23 Shaikh Torres MD [address] [place] [address] PCP - General Internal Medicine 11/12/23 03/04/24 Jefferson Amador MD [address] [place] [address] PCP - General Family Medicine 03/05/24 Shaikh Torres MD [address] [place] [address] PCP - [facility] 06/11/24 Holly Douglas NP [address] [place] [address] Nurse Practitioner Family Medicine 03/05/24 documented as of this encounter
--- OUTSIDE RECORDS SUMMARY | 2024-12-11 09:06 | XMS_ITS | Patient Health Record ---
Author Organization [facility] Address [address] [place] [address] Care Team Providers Care Bailer Operators Supervisor Name Role Phone SHAIKH ALVES Primary Care Provider Unavailabl e Marah-Inkumar Inkumar Unavailable Thierry Xiong MD Unavailable Unavailable Reason For Referral No Information Medications Medication SIG (Take, Route, Frequency, Duration) Notes Start Date End Date Status Eliquis Active Social History Tobacco Use: Social History Observation Description Date Details (start date - stop date) Former Smoker NA - NA Smoking History Question Answer Notes Smoking Status Former Smoker Problems Problem Type SNOMED Code ICD Code Onset Dates Problem Status W/U Status Risk Notes Problem Degeneration of lumbosacral intervertebral disc (78183381) Other intervertebral disc degeneration, lumbosacral region (M51.37) Active confirmed Problem 913105490 Other fracture o f first lumbar vertebra, subsequent encounter for fracture with routine healing (S32.018D) Active confirmed Problem 169006570 Other fracture o f second lumbar vertebra, subsequent encounter for fracture with routine healing (S32.028D) Active confirmed Problem Arthropathy of lumbar facet joint (disorder) (763404527) Facet arthropathy, lumbar (M47.816) Active confirmed Problem 95036601880357163 Other closed fracture of first lumbar vertebra, initial encounter (S32.018A) Active confirmed Problem 66611762249663621 Other closed fracture of second lumbar vertebra, initial encounter (S32.028A) Active confirmed Problem Osteophyte of bone (225973358620345) Osteophyte of spine (M25.78) Active confirmed Problem Lumbosacral spondylosis without myelopathy (69890095) Spondylosis of lumbosacral joint (M47.817) Active confirmed Problem 58142336 Fall in shower (W18.2XXA) Active confirmed Plan Of Treatment Pending Test Test Name Order Date NAN-CUSTOM LSO BRACE 02/26/2023 Insurance Providers Payer Name Payer Address Payer Phone Subscriber Number Group Number Insured Name Patient Relationship to Insured Coverage Start Date Coverage End Date [employer] [address] [place] [address] [id number] GERALDINE MUSA Self - patient is the insured Medical (General) History Medical History History ICD Code Blood Clots in Legs/Lungs: YES, Seen a Psychiatrist: YES, Surgical History Surgery Date(Month/Year)
--- OUTSIDE RECORDS SUMMARY | 2024-12-11 09:06 | XMS_ITS | Clinical Summary ---
Author Organization [facility] Address [address] [place] [address] Care Team Providers Care Bank Reconciliator Name Role Phone Unavailable Primary Care Provider Unavailabl e Allergies No known active allergies Medications ELIQUIS 5 MG TABS tablet Take 5 mg by mouth every 12 hours 05/28/2022 Active losartan (COZAAR) 100 MG tablet Take 100 mg by mouth daily 06/23/2022 Active rosuvastatin (CRESTOR) 10 MG tablet Take 10 mg by mouth nightly 06/23/2022 Active Social History Tobacco Use Types Packs/Day Years Used Date Smoking Tobacco: Never Assessed Sex and Gender Information Value Date Recorded Sex Assigned at Not on file Legal Sex Male 1:34 PM EST Gender Identity Not on file Sexual Orientation Not on file Plan of Treatment Not on file
--- OUTSIDE RECORDS SUMMARY | 2024-12-11 09:06 | XMS_ITS | Encounter Summary ---
Author Organization [facility] Address [address] [place] [address] Care Team Providers Care Drag Car Racer Name Role Phone Jefferson Amador MD Primary Care Provider Holly Douglas NP Unavailable [phone] Shaikh NATALIIA Torres Unavailable [phone] Encounter Details Date Type Department Care Team (Late st Contact Info) Description 05/27/2024 Orders Only [facility] [address] [place] [address] Vee Rosales MD [address] [place] [address] Social History Tobacco Use Types Packs/Day Years [...] often do you attend chur ch or zoroastrianism services? Never 05/08/2023 Do you belong to any clubs o r organizations such as religious groups, unions, fraternal or athletic groups, or [...] Recorded Patient Health Questionnaire-2 Score 0 11/12/2023 [facility] - Occupational Stress [...] place to sleep or slept in a jail (including now)? No 05/08/2023 Sex and Gender Information Value Date Recorded Sex Assigned at Not on file Legal Sex Male 3:41 PM EST Gender Identity Not on file Sexual Orientation Not on file documented as of this encounter Plan of Treatment Upcoming Encounters Date Type Department Care Team (Late st Contact Info) Description 12/15/2024 7:00 PM EDT Office Visit [facility] [address] [place] [address] Ileana Herrera NP [address] [place] [phone] documented as of this encounter Procedures Procedure Name Priority Date/Time Associated Diagnosis Comments ECHO TRANSTHORACIC W/ DOPPLER Routine 05/26/2024 8:43 AM EST documented in this encounter Results * ECHO TRANSTHORACIC W/ DOPPLER (05/26/2024 8:43 AM EST) Anatomical Region Laterality Modality Radiographic Thu ging us Vee Rosales MD IMG XR PROCEDURES Final Result documented in this encounter Visit Diagnoses Not on filedocumented in this encounter Care Teams Drag Car Racer Relationship Specialty Start Date End Date Jefferson Amador MD [address] [place] [place] [phone] PCP - General Family Medicine 03/05/24 Shaikh Torres MD [address] [place] [address] PCP - [facility] 06/11/24 Holly Douglas NP [address] [place] [phone] Nurse Practitioner Family Medicine 03/05/24 documented as of this encounter
--- OUTSIDE RECORDS SUMMARY | 2024-12-11 09:21 | XMS_ITS | CCD ---
Author Organization [facility] Care Team Providers Care Seafood Team Member Name Role Phone SHAIKH TORRES Primary Care Physician [phone] REQUEST, NONE LISTED Primary Care Unavaila liza SULLIVAN ., HUAN DURHAM Consulting UnavailMARGARITA Stanford Admitting Unavailable MARGARITA MURILLO Attending Unavailable ANGEL GABRIEL Consulting Unavailable FAWWAD, ALEJANDRO H Consulting Unavailable FAWWADCHACHAALEJANDRO H Attending Unavailable FAWWAD, ALEJANDRO H Admitting Unavailable FAWWAD, ALEJANDRO H Primary Care Unavailable FAWWAD, ALEJANDRO H Primary Care Unavailable FAWWAD, ALEJANDRO H Consulting Unavailable FAWWAD, ALEJANDRO H Attending Unavailable FAWWAD, ALEJANDRO H Admitting Unavailable FAWWAD, ALEJANDRO Primary Care Unavailable SALAM, Araceli Admitting Unavailable SALAM, Araceli Attending Unavailable SALAM, Charles Referring Unavailable FAWWAD, ALEJANDRO Primary Care Unavailable Arlen Littlejohn Attending Unavailable Jefferson Amador MD Primary Care Provider [phone] Stella CHIN, Holly Unavailable [phone] Stella ACID CONDITIONING WORKER-LOCKSTITCH LINING SETTERHolly Primary Care Pr ovider Shaikh Torres MD Unavailable Holly Douglas NP Unavailable [phone] SHAIKH TORRES Attending Unavailable HOLLY DOUGLAS Attending UnavailILEANA Carr Attending Unavailable Medications Current Medications Medication Drug Class(es) Dates Sig (Normalized) Sig (Original) apixaban 5 mg oral tablet (13 sources) Factor Xa Inhibitor Start: 05-27-2024 End: 12-14-2024 take 1 tablet by mouth once apixaban (Eliquis) 5 MG tablet Indications: History of blood clots , Family history of pulmonary embolism Take 1 tablet (5 mg) by mouth every 12 (twelve) hours 180 tablet 1 09/15/2024 12/14/2024 Active Start: 08-07-2022 Eliquis Refill s(s) 0, Blood Thinner Start Date: 08/07/22 Status: Ordered Start: 08-07-2022 Eliquis Refill s(s) 0 Start Date: 08/07/22 Status: Ordered atorvastatin 10 mg oral tablet (9 sources) HMG-CoA Reductase Inhibitor Start: 07-28-2024 End: 12-14-2024 take 1 tablet by mouth at bedtime atorvastatin (Lipitor) 10 MG tablet Indications: Mixed hyperlipidemia (CMS/HCC) Take 1 tablet (10 mg) by mouth at bedtime 90 tablet 09/15/2024 12/14/2024 Active Start: 05-26-2024 End: 07-25-2024 take 1 tablet by mouth once daily atorvastatin (Lipitor) 10 MG tablet Indications: Mixed hyperlipidemia (CMS/HCC) Take 1 tablet (10 mg) by mouth Daily 90 tablet 06/26/2024 07/25/2024 Discontinued (Reorder) carvedilol 3.125 mg oral tablet (11 sources) alpha-Adrenergic Devyn, beta-Adrenergic Devyn Start: 07-28-2024 End: 12-14-2024 take 1 tablet by mouth in the morning carvedilol (Coreg) 3.125 MG tablet Indications: Primary hypertension (CMS/HCC) Take 1 tablet (3.125 mg) by mouth in the morning and 1 tablet (3.125 mg) in the evening. Take with meals. 180 tablet 09/15/2024 12/14/2024 Active Start: 05-26-2024 End: 07-25-2024 take 1 tablet by mouth in the morning carvedilol (Coreg) 3.125 MG tablet Indications: Primary hypertension (CMS/HCC) Take 1 tablet (3.125 mg) by mouth in the morning and 1 tablet (3.125 mg) in the evening. Take with meals. 90 tablet 06/26/2024 07/25/2024 Discontinued (Reorder) losartan potassium 100 mg oral tablet (4 sources) Angiotensin 2 Receptor Devyn Start: 11-12-2023 End: 05-27-2024 take 1 tablet by mouth once daily losartan (Cozaar) 100 MG tablet Indications: Primary hypertension (CMS/HCC) Take 1 tablet (100 mg) by mouth Daily 90 tablet 1 11/12/2023 05/27/2024 Discontinued (Med list cleanup) Start: 08-07-2022 losartan 100 m g Tab Refills(s) 0, High blood pressure Start Date: 08/07/22 Status: Ordered Completed/Discontinued Medications Medication Drug Class(es) Dates Sig (Normalized) Sig (Original) polyethylene glycol 3350 405838 mg / potassium chloride 1480 mg / sodium bicarbonate 5720 mg / sodium chloride 56155 mg powder for oral solution (1 source) Osmotic Laxative Start: 08-07-2022 NuLYTELY Day oral powder for reconstitution See Instructions, 1 EA, Refill(s) 0, Prior to colonoscopy., [facility], 187.9, cm, 08/07/22 15:27:00 EST, Height/Length Dosing, 101.6, kg, 08/07/22 15:27:00 EST, Weight Dosing Start Date: 08/07/22 Status: Ordered rosuvastatin calcium 10 mg oral tablet (5 sources) HMG-CoA Reductase Inhibitor Start: 11-12-2023 End: 06-26-2024 take 1 tablet by mouth once daily rosuvastatin (Crestor) 10 MG tablet Indications: Mixed hyperlipidemia (CMS/HCC) Take 1 tablet (10 mg) by mouth Daily 90 tablet 1 11/12/2023 06/26/2024 Discontinued (Discontinued by another clinician) Start: 08-07-2022 rosuvastatin 1 0 mg Tab Refills(s) 0, High cholesterol Start Date: 08/07/22 Status: Ordered Problems Active Problems Problem Classification Problem Date Documented Da te Episodic/Chronic Disorders of lipid metabolism (17 sources) Hyperlipidemia, unspecified; Translations: [Hyperlipidemia] Onset: 09-11-2022 Chronic Essential hypertension (15 sources) Essential (primary) hypertension; Translations: [Hypertensive disorder] Onset: 04-17-2022 Chronic Osteoarthritis (7 sources) Arthritis; Translations: [Unspecified osteoarthritis, unspecified site] Onset: 05-08-2023 05-08-2023 Chronic Other screening for suspected conditions (not mental disorders or infectious disease) (10 sources) Screening for malignant neoplasm of colon done; Translations: [Encounter for screening for malignant neoplasm of colon] Onset: 04-22-2022 Episodic Phlebitis; thrombophlebitis and thromboembolism (2 sources) 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; Translations: [Chronic embolism and thrombosis of right femoral vein] 09-15-2024 Chronic Phlebitis; thrombophlebitis and thromboembolism (20 sources) Acute embolism and thrombosis of right popliteal vein; Translations: [Acute embolism and thrombosis of right femoral vein] Onset: 01-17-2022 Resolved: 09-15-2024 05-27-2024 Episodic Pulmonary heart disease (13 sources) H/O: pulmonary embolus; Translations: [Personal history of pulmonary embolism] Onset: 05-27-2024 05-27-2024 Episodic Residual codes; unclassified (13 sources) Family history of pulmonary embolism; Translations: [Family history of ischemic heart disease and other diseases of the circulatory system] Onset: 05-27-2024 05-27-2024 Episodic Spondylosis; intervertebral disc disorders; other back problems (20 sources) Arthropathy of lumbar facet joint; Translations: [Spondylosis without myelopathy or radiculopathy, lumbar region] Onset: 11-12-2023 11-12-2023 Chronic Unclassified (2 sources) Patient encounter status 08-07-2022 Unclassified (1 source) Acute embolism and thrombosis of right peroneal vein; Translations: [ACUTE EMBOLS AND THROMBOS RT PERONL VN] Onset: 01-17-2022 Past or Other Problems Problem Classification Problem Date Documented Da te Episodic/Chronic Other circulatory disease (7 sources) Elevated blood-pressure reading without diagnosis of hypertension; Translations: [Elevated blood-pressure reading, without diagnosis of hypertension] Onset: 05-08-2023 Resolved: 09-15-2024 05-08-2023 Episodic Other connective tissue disease (3 sources) Other specified soft tissue disorders; Translations: [OTHER SPEC SOFT TISSUE DISORDERS] Onset: 01-16-2022 Episodic Other fractures (7 sources) Compression fracture of lumbar spine; Translations: [Wedge compression fracture of first lumbar vertebra, subsequent encounter for fracture with routine healing] Onset: 05-08-2023 Resolved: 09-15-2024 05-08-2023 Episodic Other fractures (7 sources) Closed fracture of first lumbar vertebra; Translations: [Unspecified fracture of first lumbar vertebra, initial encounter for closed fracture] Onset: 11-12-2023 Resolved: 09-15-2024 11-12-2023 Episodic Other fractures (7 sources) Closed fracture of second lumbar vertebra; Translations: [Unspecified fracture of second lumbar vertebra, initial encounter for closed fracture] Onset: 11-12-2023 Resolved: 09-15-2024 11-12-2023 Episodic Other non-traumatic joint disorders (14 sources) Ankle edema; Translations: [Effusion, left ankle] Onset: 05-08-2023 Resolved: 09-15-2024 05-08-2023 Episodic Residual codes; unclassified (7 sources) Edema of foot; Translations: [Localized edema] Onset: 05-08-2023 Resolved: 09-15-2024 05-08-2023 Episodic Results Test Name Value Interpretation Reference Range Facility [facility] 10-23-2022 Consent [id number]#1. 00CD:127 [facility] Discharge Instructionson Discharge Instructions [id number]#1. 00CD:127 [facility] Main OR Intraoperative Recor don 10-23-2022 Main OR Intraoperative Record IntraOp Document Type FT Summary Primary Physician: Araceli AGGARWAL MD Finalized Date/Time: 10/23/22 07:35:16 Pt. Name: GERALDINE POTTS/Sex: 1965 Male Med Rec #: [id number] Physician: Araceli AGGARWAL MD Financial #: [id number] Pt. Type: O Room/Bed: / Admit/Disch: 10/20/22 06:58:07 - 10/20/22 23:59:59 Institution: Case Times FT Entry 1 Patient Times In Room 10/20/22 08:10:00 Out Room 10/20/22 08:28:00 Procedure Times Start 10/20/22 08:13:00 Stop 10/20/22 08:26:00 Anesthesia Times Start 10/20/22 08:10:00 Stop 10/20/22 08:28:00 Time at [place] 10/20/22 08:16:00 Last Modified By: Kassidy López RN 10/20/22 08:28:26 General Comments: 10/23/22 Chart opened to review and send charges LRoth CSFA Case Attendance FT Entry 1 Entry 2 Entry 3 Case Attendee Omkar Caraballo Jr, DO, RN, Deyanira Yin Role Performed Anesthesiologist of [place] [employer] - Primary Scrub - Primary Record Time [...] Comments help in room Last Modified By: Maribel GANNON, Kassidy López RN, Kassidy 10/20/22 08:28:28 10/20/22 08:28:28 Perioperative Protocols FT [...] Out Omkar Caraballo Jr, DO, Given Participants Maribel GANNON, MARIEL Yi MD, Elias Charles Kirstyn K, Sparks, Micala E Time Out Complete 10/20/22 08:14:00 Outcomes Met? [...] and tissue Entry 1 Skin Integrity Intact, Mcgehee, Warm, and Skin Abnormality No Dry Outcomes [...] at Si (more content not included)... Normal [facility] Progress Note-Physicianon Progress Note-Physician Patient: GERALDINE POTTS Age: 57 years Sex: Male : 1965 [...] Screen for colon cancer / SNOMED CT 024884057 / Confirmed Histories Procedure history: No active procedure history items have been selected or recorded. Social History Social & Psychosocial Habits Tobacco 08/07/2022 Tobacco Use: Never (less than 100 in l Smokeless tobacco use: Current vaping or e-cigar Type: Vaping . Physical Examination Airway: Mallampati classification: II (soft palate, fauces, uvula visible). Respiratory: adequate air exchange. Cardiovascular: Regular rhythm. Plan [place] [employer]esthesiologists (ASA) physical status classification: Class II. Anesthetic Preoperative Plan: Anesthesia General. Normal [facility] Comment on above: Result Comment: Elec tronically Signed By: Omkar Caraballo Jr, DO\.br\Date and Time Signed: 10/21/22 09:06 EDT Progress Note-Physician Patient: GERALDINE POTTS Age: 57 years Sex: Male : 1965 [...] meets criteria ( To home ). Normal [facility] Comment on above: Result Comment: Elec tronically Signed By: Omkar Caraballo Jr, DO.br\Date and Time Signed: 10/21/22 09:05 EDT Consent for Treatmenton 10-09 Consent for Treatment [id number] 0CD:127 [facility] Discharge Instructionson Discharge Instructions GERALDINE POTTS :1965 Visit Date:10/20/2022 Inpatient Discharge Instructions Your [...] after Discharge Follow Up with MARIEL WILLIAM, Araceli, TAMMIE, [facility] When: Within 1 to 2 weeks Comments: Office will call with date and time of follow-up appt. Where: [address] [place] [address] Follow Up with Araceli AGGARWAL When: Comments: Office will call date and time of follow-up appt. Where: [address] [place] [address] Business (1) Medications What When [...] call to (more content not included)... Normal [facility] Comment on above: Result Comment: Elec tronically Signed By: Edson GANNON, Rosa\.jitendra\Date and Time Signed: 10/20/22 08:38 EDT Endoscopic Procedure Report - Otheron 10-20-2022 Endoscopic Procedure Report - Other Patient: GERALDINE POTTS Age: 57 years Sex: Male : 1965 [...] Small nonbleeding internal hemorrhoids Images Procedure images: Rec_hd_video_2022__ [id number].jpg Rec_hd_video_2022__ [id number].jpg Rec_hd_video_2022__ _[id number].jpg . Post-Procedure Complications: none. Estimated blood loss: [...] Return to activities:: After 24 hours. Normal [facility] Comment on above: Result Comment: Elec tronically Signed By: Araceli AGGARWAL MD\.br\Date and Time Signed: 10/20/22 08:28 EDT Other Comment: Anna gomez Attachment - attachment storage system not supported [id number] Can be viewed in source systemMissing Attachment - attachment storage system not supported [id number] Can be viewed in source systemMissing Attachment - attachment storage system not supported [id number] Can be viewed in source system Inpatient Patient Summaryon 10-20-2022 Inpatient Patient Summary [place] [id number] [facility] Clinical Discharge Instructions PERSON INFORMATION Name: GERALDINE POTTS PHYSICIANS Admitting Physician: Araceli AGGARWAL MD Attending Physician: Araceli AGGARWAL MD PCP: SHAIKH TORRES Discharge Diagnosis: Encounter for screening for malignant neoplasm of rectum; Screening for colorectal cancer Comment: PATIENT EDUCATION INFORMATION Instructions: Medication Leaflets: Follow up: MEDICATION LIST Medications to Continue with No Changes Other Medications apixaban (Eliquis) losartan (losartan 100 mg Tab) rosuvastatin (rosuvastatin 10 mg Tab) Comment: Normal [facility] Main OR PACU I Recordon 10-09 Main OR PACU I Record PACU Phase I Docum ent Type FT Summary Primary Physician: Araceli AGGARWAL MD Finalized Date/Time: 10/20/22 14:32:06 Pt. Name: GERALDINE POTTS Marcia/Sex: 1965 Male Med Rec #: [id number] Physician: Araceli AGGARWAL MD Financial #: [id number] Pt. Type: O Room/Bed: / Admit/Disch: 10/20/22 [...] By: Rosa Sandhu RN 10/20/22 14:32 Normal [facility] Main OR Preoperative Recordo n 10-20-2022 Main OR Preoperative Record Holding Area Document Type FT Summary Primary Physician: Araceli AGGARWAL MD Finalized Date/Time: 10/20/22 07:20:42 Pt. Name: GERALDINE POTTS/Sex: 1965 Male Med Rec #: [id number] Physician: Araceli AGGARWAL MD Financial #: [id number] Pt. Type: O Room/Bed: / Admit/Disch: 10/20/22 [...] patient tolerated well, last bowel movement clear yellow./DEJUAN,RN Finalized By: Billie Schmitt RN Document Signatures Signed By: Billie Schmitt RN 10/20/22 07:20 Normal [facility] Monitor Recordon 10-20-2022 Monitor Record [id number]. 00CD:127 [facility] Monitor Record [id number]. 00CD:127 [facility] Outpatient Surgery Discharge Instructionon 10-20-2022 Outpatient Surgery Discharge Instruction [place] [id number] Patient Discharge Instructions PERSON INFORMATION Name: GERALDINE POTTS Date of : 1965 Current Date: 10/20/2022 08:28:01 PHYSICIANS Admitting Physician: MARIEL WILLIAM, Charles Discharge Diagnosis: Encounter for screening for malignant neoplasm of rectum; Screening for colorectal cancer GERALDINE POTTS has been given the following list of [...] THE NEAREST EMERGENCY ROOM OR CALL 911 I, GERALDINE POTTS, have received the attached patient education materials/instructions and have verbalized understanding: May we do a follow up call? Yes No I was present when discharge instructions were given Patient Signature Date Clinican/Nurse Signature ___ Date Follow up: Pharmacy Information: [facility] [place] You may receive a survey from [employer] asking you to rate your care experience. Your feedback is important and will help us understand what we do well and how we can improve the quality of care we provide to you, your loved ones and our community. It?s an honor to serve you. Thank you for choosing [facility] HERE ARE THE MEDICATION CHANGES THAT OCCURRED DURING YOUR HOSPITAL STAY Medications to Continue with No Changes Other Medications apixaban (Eliquis) losartan (losartan 100 mg Tab) rosuvastatin (rosuvastatin 10 mg Tab) PATIENT EDUCATION INFORMATION Instructions: Medication Leaflets: [facility] Patient Education - Texton 0 10-20-2022 [...] or gets worse throughout the day. Normal [facility] LIPID PROFILEon 09-11-2022 CHOL-HDL RATIO NORM SEE BELOW Normal [facility] Comment on above: Result Comment: 3.3 - 4.4 LOW RISK 4.4 - 7.1 AVERAGE RISK 7.1 - 11.0 MODERATE RISK >11.0 HIGH RISK Performed By: #### L IPID #### [facility] [address] [address] [address] Svetlana Golden Cholesterol [Mass/Vol] 154 mg/dL Normal <=200 [facility] Comment on above: Performed By: #### L IPID #### [facility] [address] [address] [address] Svetlana Golden Cholesterol in HDL [Mass/Vol] 52 mg/dL Normal 40-60 [facility] Comment on above: Performed By: #### L IPID #### [facility] [address] [address] [address] Svetlana Golden Cholesterol in LDL [Mass/Vol] 90.6 mg/dL Normal [facility] Comment on above: Performed By: #### L IPID #### [facility] [address] [address] [address] Svetlana Golden Cholesterol.total/Cho lesterol in HDL [Mass ratio] 3.0 {ratio} Normal [facility] Comment on above: Performed By: #### L IPID #### [facility] [address] [address] [address] Svetlana Golden HDL NORMAL > or = 60 mg/dl - LO W CARDIOVASCULAR RISK <40 mg/dl - HIGH CARDIOVASCULAR RISK Normal [facility] Comment on above: Performed By: #### L IPID #### [facility] [address] [address] [address] Svetlana Golden LDL CALC NORMAL SEE BELOW Normal [facility] Comment on above: Result Comment: <100 mg/dl OPTIMAL 100 - 129 mg/dl NEAR OR ABOVE OPTIMAL 130 - 159 mg/dl BORDERLINE HIGH 160 - 189 mg/dl HIGH >190 mg/dl VERY HIGH Performed By: #### L IPID #### [facility] [address] [address] [address] Svetlana Golden Triglyceride [Mass/Vol] 57 mg/dL Normal <=150 [facility] Comment on above: Performed By: #### L IPID #### [facility] [address] [place] [address] Dr. Svetlana Golden VLDL CALC 11.4 mg/dL Normal [facility] Comment on above: Performed By: #### L IPID #### [facility] [address] [place] [address] Dr. Svetlana Golden Consent for Procedure/Surger yon 08-08-2022 Consent for Procedure/Surgery [id number]. [id number]:127 [facility] Ambulatory Visit Summaryon 0 08-07-2022 Ambulatory Visit Summary GERALDINE POTTS :1965 Visit Date:08/07/2022 Ambulatory Visit Instructions Your [...] See instructions Prior to colonoscopy. Pickup at [facility] Unchanged apixaban (Eliquis) Contact prescribing physician if questions or concerns Unchanged losartan (losartan 100 mg Tab) Contact prescribing physician if questions or concerns Unchanged rosuvastatin (rosuvastatin 10 mg Tab) Contact prescribing physician if questions or concerns Pharmacy Information [facility]: [address] [place], [place] [id number] [phone] Medications and Immunizations Administered Not Given influenza [...] including vitamins, herbs, eye drops, creams, and ovys-cww-khqvosb medicines. ? Any problems you or family [...] ? Randall (more content not included)... Normal [facility] Gastroenterology Office/Clin ic Noteon 08-07-2022 Gastroenterology Office/Clinic [...] 1 EA, Refill(s) 0, Prior to colonoscopy., [facility], 187.9, cm, 08/07/22 15:27:00 EST, Height/Length [...] inactivated - Not Given Patient Refuses Normal [facility] Comment on above: Result Comment: Elec tronically Signed By: Arlen Littlejohn CNP\.br\Date and Time Signed: 08/07/22 15:40 EST Lab Reportson 08-07-2022 Lab Reports [id number] .[id number]:127 [facility] Lab Reports [id number] 0CD:127 [facility] Patient Educationon 08-07-19 23 Patient Education [...] including vitamins, herbs, eye drops, creams, and utht-urc-mendcaj medicines. ? Any problems you or family [...] air t (more content not included)... Normal [facility] Physician Referralon 023 Physician Referral [id number] 0CD:127 [facility] GLYCOHEMOGLOBIN A1Con 2021 ADA RECOMMENDATION SEE BELOW Normal [facility] Comment on above: Result Comment: ADA RECOMMENDED LIMIT 4.0 - 6.0 ADA THERAPEUTIC TARGET < 7.0 ACTION SUGGESTED > 7.0 Performed By: #### A 1C #### [facility] [address] [address] [address] Svetlana Golden Glucose [Mass/Vol] 120 mg/dL Normal [facility] Comment on above: Performed By: #### A 1C #### [facility] [address] [place], [place] [address] Dr. Svetlana Golden HbA1c (Bld) [Mass fraction] 5.8 % Normal 4.5-6.2 [facility] Comment on above: Performed By: #### A 1C #### [facility] [address] [address] [address] Svetlana Golden LIPID PROFILEon 04-17-2022 CHOL-HDL RATIO NORM SEE BELOW Normal [facility] Comment on above: Result Comment: 3.3 - 4.4 LOW RISK 4.4 - 7.1 AVERAGE RISK 7.1 - 11.0 MODERATE RISK >11.0 HIGH RISK Performed By: #### B MP, LIPID #### [facility] [address] [address] [address] Svetlana Golden Cholesterol [Mass/Vol] 243 mg/dL Critically high <=200 [facility] Comment on above: Performed By: #### B MP, LIPID #### [facility] [address] [address] [address] Svetlana Golden Cholesterol in HDL [Mass/Vol] 53 mg/dL Normal 40-60 [facility] Comment on above: Performed By: #### B MP, LIPID #### [facility] [address] [address] [address] Svetlana Golden Cholesterol in LDL [Mass/Vol] 172.6 mg/dL Normal [facility] Comment on above: Performed By: #### B MP, LIPID #### [facility] [address] [place] [address] Dr. Svetlana Golden Cholesterol.total/Cho lesterol in HDL [Mass ratio] 4.6 {ratio} Normal [facility] Comment on above: Performed By: #### B MP, LIPID #### [facility] [address] [address] [address] Svetlana Golden HDL NORMAL > or = 60 mg/dl - LO W CARDIOVASCULAR RISK <40 mg/dl - HIGH CARDIOVASCULAR RISK Normal [facility] Comment on above: Performed By: #### B MP, LIPID #### [facility] [address] [place] [address] Dr. Svetlana Golden LDL CALC NORMAL SEE BELOW Normal [facility] Comment on above: Result Comment: <100 mg/dl OPTIMAL 100 - 129 mg/dl NEAR OR ABOVE OPTIMAL 130 - 159 mg/dl BORDERLINE HIGH 160 - 189 mg/dl HIGH >190 mg/dl VERY HIGH Performed By: #### B MP, LIPID #### [facility] [address] [address] [address] Svetlana Golden Triglyceride [Mass/Vol] 87 mg/dL Normal <=150 [facility] Comment on above: Performed By: #### B MP, LIPID #### [facility] [address] [address] [address] Svetlana Golden VLDL CALC 17.4 mg/dL Normal [facility] Comment on above: Performed By: #### B MP, LIPID #### [facility] [address] [address] [address] Svetlana Golden PROF CHEM 8 (BAS METB)on Anion gap [Moles/Vol] 7.6 mmol/L Normal [facility] Comment on above: Performed By: #### B MP, LIPID #### [facility] [address] [place] [address] Dr. Svetlana Golden Calcium [Mass/Vol] 8.8 mg/dL Normal 8.5-10.1 [facility] [place] Comment on above: Performed By: #### B MP, LIPID #### [facility] [facility] [address] [place] [address] Dr. Svetlana Golden Chloride [Moles/Vol] 105 mmol/L Normal 98-107 [facility] Comment on above: Performed By: #### B MP, LIPID #### [facility] [address] [place] [address] Dr. Svetlana Golden CO2 [Moles/Vol] 28.0 mmol/L Normal 21.0-32.0 [facility] Comment on above: Performed By: #### B MP, LIPID #### [facility] [address] [place] [address] Dr. Svetlana Golden Creatinine [Mass/Vol] 1.00 mg/dL Normal 0.70-1.30 [facility] Comment on above: Performed By: #### B MP, LIPID #### [facility] [address] [place] [address] Dr. Svetlana Golden EGFR-AF ENGLISH >60 Normal >=60 [facility] Comment on above: Performed By: #### B MP, LIPID #### [facility] [address] [place] [address] Dr. Svetlana Golden EGFR-NON AF ENGLISH >60 Normal >=60 [facility] Comment on above: Performed By: #### B MP, LIPID #### [facility] [address] [address] [address] Svetlana Golden Glucose [Mass/Vol] 99 mg/dL Normal 74-106 [facility] Comment on above: Performed By: #### B MP, LIPID #### [facility] [address] [address] [address] Svetlana Golden Potassium [Moles/Vol] 3.6 mmol/L Normal 3.5-5.1 [facility] Comment on above: Performed By: #### B MP, LIPID #### [facility] [address] [place] [address] Dr. Svetlana Golden Sodium [Moles/Vol] 137 mmol/L Normal 136-145 [facility] Comment on above: Performed By: #### B MP, LIPID #### [facility] [address] [place] [address] Dr. Svetlana Golden Urea nitrogen [Mass/Vol] 18.0 mg/dL Normal 7.0-18.0 [facility] Comment on above: Performed By: #### B MP, LIPID #### [facility] [address] [place] [address] Dr. Svetlana Golden Urea nitrogen/Creatinine [Mass ratio] 18.0 mg/mg Normal [facility] Comment on above: Performed By: #### B MP, LIPID #### [facility] [address] [place] [address] Dr. Svetlana Golden CBC AUTO DIFFon 01-16-2022 BASO # 0.1 103/ul Normal 0.0-0.1 [facility] Comment on above: Performed By: #### C BC #### [facility] [address] [place] [address] Dr. Svetlana Golden Basophils/100 WBC (Bld) 0.8 % Normal 0.2-2.0 [facility] Comment on above: Performed By: #### C BC #### [facility] [address] [place] [address] Dr. Svetlana Golden EO # 0.2 103/ul Normal 0.0-0.7 [facility] Comment on above: Performed By: #### C BC #### [facility] [address] [place] [address] Dr. Svetlana Golden Eosinophils/100 WBC (Bld) 2.5 % Normal 0.9-7.0 [facility] Comment on above: Performed By: #### C BC #### [facility] [address] [place] [address] Dr. Svetlana Golden Erythrocyte distribution width (RBC) [Ratio] 12.4 % Normal 11.0-15.0 [facility] Comment on above: Performed By: #### C BC #### [facility] [address] [place] [address] Dr. Svetlana Golden Hematocrit (Bld) [Volume fraction] 46.4 % Normal 42.0-54.0 [facility] Comment on above: Performed By: #### C BC #### [facility] [address] [place] [address] Dr. Svetlana Golden Hemoglobin (Bld) [Mass/Vol] 15.4 g/dL Normal 14.0-18.0 [facility] Comment on above: Performed By: #### C BC #### [facility] [address] [place] [address] Dr. Svetlana Golden IG # 0.01 10e3/ul Normal 0.00-0.03 [facility] Comment on above: Performed By: #### C BC #### [facility] [address] [place] [address] Dr. Svetlana Golden IG % 0.1 % Normal 0.0-0.5 [facility] Comment on above: Performed By: #### C BC #### [facility] [address] [place] [address] Dr. Svetlana Golden LYMPH # 2.0 103/ul Normal 1.2-3.8 [facility] Comment on above: Performed By: #### C BC #### [facility] [address] [place] [address] Dr. Svetlana Golden Lymphocytes/100 WBC (Bld) 27.0 % Normal 20.5-60.0 [facility] Comment on above: Performed By: #### C BC #### [facility] [address] [place] [address] Dr. Svetlana Golden MANUAL DIFF REQ NO Normal [facility] Comment on above: Performed By: #### C BC #### [facility] [address] [place] [address] Dr. Svetlana Golden MCH (RBC) [Entitic mass] 31.9 pg Normal 25.9-34.0 [facility] Comment on above: Performed By: #### C BC #### [facility] [address] [place] [address] Dr. Svetlana Golden MCHC (RBC) [Mass/Vol] 33.2 g/dL Normal 29.9-35.2 [facility] Comment on above: Performed By: #### C BC #### [facility] [address] [place] [address] Dr. Svetlana Golden MCV (RBC) [Entitic vol] 96.1 fL Critically high 80.0-94.0 [facility] Comment on above: Performed By: #### C BC #### [facility] [address] [place] [address] Dr. Svetlana Golden MONO # 0.7 103/ul Normal 0.3-0.8 [facility] Comment on above: Performed By: #### C BC #### [facility] [address] [place] [address] Dr. Svetlana Golden Monocytes/100 WBC (Bld) 9.2 % Normal 1.7-12.0 [facility] Comment on above: Performed By: #### C BC #### [facility] [address] [place] [address] Dr. Svetlana Golden NEUT # 4.5 103/ul Normal 1.4-6.5 [facility] Comment on above: Performed By: #### C BC #### [facility] [address] [address] [address] Svetlana Golden Neutrophils/100 WBC (Bld) 60.4 % Normal 43.0-75.0 [facility] Comment on above: Performed By: #### C BC #### [facility] [address] [address] [address] Svetlana Golden Platelet mean volume (Bld) [Entitic vol] 9.7 fL Normal 9.5-13.5 [facility] Comment on above: Performed By: #### C BC #### [facility] [address] [address] [address] Svetlana Golden PLT 312 103/ul Normal 150-450 [facility] Comment on above: Performed By: #### C BC #### [facility] [address] [place] [address] Dr. Svetlana Golden RBC 4.83 106/ul Normal 4.70-6.10 [facility] Comment on above: Performed By: #### C BC #### [facility] [address] [place] [address] Dr. Svetlana Golden WBC 7.5 103/ul Normal 4.0-11.0 [facility] Comment on above: Performed By: #### C BC #### [facility] [address] [place] [address] Dr. Svetlana Golden PROF CHEM 8 (BAS METB)on Anion gap [Moles/Vol] 12.1 mmol/L Normal [facility] Comment on above: Performed By: #### B MP #### [facility] [address] [place] [address] Dr. Svetlana Golden Calcium [Mass/Vol] 9.2 mg/dL Normal 8.5-10.1 [facility] Comment on above: Performed By: #### B MP #### [facility] [address] [place] [address] Dr. Svetlana Golden Chloride [Moles/Vol] 107 mmol/L Normal 98-107 [facility] Comment on above: Performed By: #### B MP #### [facility] [address] [address] [address] Svetlana Golden CO2 [Moles/Vol] 29.8 mmol/L Normal 21.0-32.0 [facility] Comment on above: Performed By: #### B MP #### [facility] [address] [address] [address] Svetlana Golden Creatinine [Mass/Vol] 0.95 mg/dL Normal 0.70-1.30 [facility] Comment on above: Performed By: #### B MP #### [facility] [address] [address] [address] Svetlana Golden EGFR-AF ENGLISH >60 Normal >=60 [facility] Comment on above: Performed By: #### B MP #### [facility] [address] [address] [address] Svetlana Golden EGFR-NON AF ENGLISH >60 Normal >=60 [facility] Comment on above: Performed By: #### B MP #### [facility] [address] [address] [address] Svetlana Golden Glucose [Mass/Vol] 97 mg/dL Normal 74-106 [facility] Comment on above: Performed By: #### B MP #### [facility] [address] [address] [address] Svetlana Golden Potassium [Moles/Vol] 4.9 mmol/L Normal 3.5-5.1 [facility] Comment on above: Performed By: #### B MP #### [facility] [address] [address] [address] Svetlana Golden Sodium [Moles/Vol] 144 mmol/L Normal 136-145 [facility] Comment on above: Performed By: #### B MP #### [facility] [address] [place] [address] Dr. Svetlana Golden Urea nitrogen [Mass/Vol] 13.0 mg/dL Normal 7.0-18.0 [facility] Comment on above: Performed By: #### B MP #### [facility] [address] [address] [address] Svetlana Golden Urea nitrogen/Creatinine [Mass ratio] 13.7 mg/mg Normal [facility] Comment on above: Performed By: #### B MP #### [facility] [address] [place] [address] Dr. Svetlana Golden PROTIMEon 01-16-2022 INR Coag (PPP) [Relative time] 1.00 {INR} Normal [facility] Comment on above: Performed By: #### P TT, PT #### [facility] [address] [place] [address] Dr. Svetlana Golden INR GUIDELINES SEE BELOW Normal [facility] Comment on above: Result Comment: TOMY RED INR: 2.0 - 3.0 CONDITIONS NOT LISTED BELOW 2.5 - 3.5 FOR PROSTHETIC HEART VALVE REPLACEMENT 2.5 - 3.5 RECURRENT THROMBOSIS Performed By: #### P TT, PT #### [facility] [address] [place] [address] Dr. Svetlana Golden PT Coag (PPP) [Time] 10.8 s Normal 9.0-11.6 [facility] Comment on above: Performed By: #### P TT, PT #### [facility] [address] [place] [address] Dr. Svetlana Golden PTTon 01-16-2022 aPTT Coag (Bld) [Time] 27.1 s Normal 22.3-36.2 [facility] Comment on above: Performed By: #### P TT, PT #### [facility] [address] [place] [address] Dr. Svetlana Golden US YOLI DOP LEG [...] by: ANGEL GABRIEL Date: 2022-01-16 17:35 Normal [facility] Vital Signs Date Time Vital Sign Value Performing Clinician Easton gonzalez 09-15-2024 19:29-0400 Diastolic blood pressure 76 mm[Hg] Ileana Liebermanamrtin [employer] Work Phone: [facility] 09-15-2024 19:29-0400 Systolic blood pressure 148 mm[Hg] Ileana Herrera [employer] Work Phone: [facility] 09-15-2024 19:06-0400 Body mass index (BMI) [Ratio] 28.61 kg/m2 Ileana Liebermanshahlakari [employer] Work Phone: [facility] 09-15-2024 19:06-0400 Body temperature 97.81 [degF] Ileana Liebermanmartin [employer] Work Phone: [facility] 09-15-2024 19:06-0400 Body weight 101.06 kg Ileana Herrera [employer] Work Phone: [facility] 09-15-2024 19:06-0400 Heart rate 68 /min Ileana Herrera [employer] Work Phone: [facility] 09-15-2024 19:06-0400 Respiratory rate 18 /min Ileana Herrera [employer] Work Phone: [facility] 09-15-2024 19:06-0400 SaO2% (BldA) [Mass fraction] 97 % Ileana Herrera [employer] Work Phone: [facility] 05-27-2024 11:31-0500 Body height 188 cm Holly Douglas [employer] Work Phone: [facility] 05-27-2024 11:31-0500 Body mass index (BMI) [Ratio] 28.76 kg/m2 Holly Douglas [employer] Work Phone: [facility] 05-27-2024 11:31-0500 Body temperature 97.7 [degF] Holly Douglas [employer] Work Phone: [facility] 05-27-2024 11:31-0500 Body weight 101.61 kg Holly Douglas [employer] Work Phone: [facility] 05-27-2024 11:31-0500 Diastolic blood pressure 68 mm[Hg] Holly Douglas [employer] Work Phone: [facility] 05-27-2024 11:31-0500 Heart rate 71 /min Holly Douglas [employer] Work Phone: [facility] 05-27-2024 11:31-0500 Respiratory rate 18 /min Holly Douglas [employer] Work Phone: [facility] 05-27-2024 11:31-0500 SaO2% (BldA) [Mass fraction] 91 % Holly Douglas [employer] Work Phone: [facility] 05-27-2024 11:31-0500 Systolic blood pressure 120 mm[Hg] Holly Douglas [employer] Work Phone: [facility] 10-20-2022 08:55-0400 Diastolic blood pressure 90 mm[Hg] Charles SAL[facility] 10-20-2022 08:55-0400 Heart rate 64 /min Charles SALAM [facility] 10-20-2022 08:55-0400 Mean blood pressure 108 mm[Hg] Charles SALAM [facility] 10-20-2022 08:55-0400 Respiratory rate 20 /min Charles SALAM [facility] 10-20-2022 08:55-0400 SaO2% (BldA) [Mass fraction] 96 % Charles SALAM [facility] 10-20-2022 08:55-0400 Systolic blood pressure 145 mm[Hg] Charles SALAM [facility] 10-20-2022 08:45-0400 Diastolic blood pressure 98 mm[Hg] Charles SAL[facility] 10-20-2022 08:45-0400 Heart rate 80 /min Charles SALAM [facility] 10-20-2022 08:45-0400 Respiratory rate 12 /min Charles SALAM [facility] 10-20-2022 08:45-0400 SaO2% (BldA) [Mass fraction] 97 % Charles SALAM [facility] 10-20-2022 08:45-0400 Systolic blood pressure 140 mm[Hg] Charles SAL[facility] 10-20-2022 08:40-0400 Diastolic blood pressure 86 mm[Hg] Charles SAL[facility] 10-20-2022 08:40-0400 Heart rate 64 /min Charles SALAM [facility] 10-20-2022 08:40-0400 Mean blood pressure 102 mm[Hg] Charles SALAM [facility] 10-20-2022 08:40-0400 Respiratory rate 19 /min Charles [facility] 10-20-2022 08:40-0400 SaO2% (BldA) [Mass fraction] 96 % Charles [facility] 10-20-2022 08:40-0400 Systolic blood pressure 135 mm[Hg] Charles SALAM [facility] 10-20-2022 08:35-0400 Mean blood pressure 94 mm[Hg] Charles SALAM [facility] 10-20-2022 08:30-0400 Blood Pressure Location Charles SAL[facility] 10-20-2022 08:30-0400 Body temperature 97.52 [degF] Charles [facility] 10-20-2022 08:20-0400 Respiratory rate 16 /min Charles [facility] 10-20-2022 08:15-0400 Respiratory rate 17 /min Charles SAL[facility] 10-20-2022 07:20-0400 Blood Pressure Location Charles SALAM [facility] 10-20-2022 07:20-0400 Body temperature 98.78 [degF] Charles SAL[facility] 08-07-2022 15:23-0500 Blood Pressure Location Arlen Eron [facility] 08-07-2022 15:23-0500 Body temperature 97.7 [degF] Arlen Eron [facility] 08-07-2022 15:23-0500 Diastolic blood pressure 78 mm[Hg] Arlen Eron [facility] 08-07-2022 15:23-0500 Heart rate 72 /min Arlen Eron [facility] 02-27-2023 15:23-0500 Systolic blood pressure 144 mm[Hg] Arlen Littlejohn [facility] Encounters Encounter Date Encounter Type Care Provider Facility Start: 09-15-2024 End: 09-15-2024 Office outpatient visit 25 minutes Ileana Herrera [employer] Work Phone: [facility] Comment on above: Primary hypertension (CMS/HCC) (Primary Dx); 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); Mixed hyperlipidemia (CMS/HCC); Prostate cancer screening; History of pulmonary embolism; History of blood clots; Family history of pulmonary embolism Start: 09-15-2024 End: 09-15-2024 ambulatory ILEANA HERRERA Not Available Start: 09-15-2024 End: 09-15-2024 Bamboo flowsheet Ileana Herrera [employer] Work Phone: [facility] Start: 09-15-2024 End: 09-15-2024 Bamboo flowsheet Ileana Herrera [employer] Work Phone: [facility] Start: 07-25-2024 End: 07-28-2024 Refill Holly Douglas [employer] Work Phone: [facility] Comment on above: Mixed hyperlipidemia (CMS/HCC); Primary hypertension (CMS/HCC) Start: 06-26-2024 End: 06-26-2024 Orders Only Holly Douglas [employer] Work Phone: [facility] Comment on above: Mixed hyperlipidemia (CMS/HCC) (Primary Dx); Primary hypertension (CMS/HCC) Start: 05-28-2024 End: 07-02-2024 [facility] Start: 05-27-2024 End: 05-27-2024 Transitional care manage srvc 7 day discharge Holly Douglas [employer] Work Phone: [facility] Comment on above: History of blood pedro ts (Primary Dx); Family history of pulmonary embolism; History of pulmonary embolism Start: 05-27-2024 End: 05-27-2024 ambulatory HOLLY MARTINESTRICK Not Available Start: 11-12-2023 End: 11-12-2023 ambulatory ALEJANDROZAHIDA SIMMSWAD Not Available Start: 05-08-2023 Patient encounter status Shalonda Turciospatrick [employer] Work Phone: [facility] Start: 10-20-2022 End: 10-21-2022 [facility] Start: 10-20-2022 End: 10-20-2022 Patient encounter procedure Charles [facility] Start: 09-11-2022 End: 09-12-2022 ambulatory [facility] Start: 08-07-2022 End: 08-08-2022 ambulatory [facility] Start: 08-07-2022 End: 08-07-2022 Patient encounter procedure Arlen Littlejohn [facility] Start: 07-11-2022 ambulatory [facility] Start: 04-17-2022 End: 04-18-2022 ambulatory [facility] Facility: Start: 01-16-2022 End: 01-16-[address] NONE LISTED REQUEST Facility: Procedures Date Procedure Procedure Detail Performing Clinician Start: 10-20-2022 Colonoscopic polypectomy Araceli AGGARWAL Start: 10-20-2022 Colonoscopy Araceli Rg Plan of Treatment Date Care Activity Detail Author Start: 02-09-2025 Influenza vaccination Influenz a Vaccine (Season Ended) [facility] Start: 12-15-2024 End: 12-15-2024 Patient encounter procedure 12/15/2024 7:00 PM EDT [facility] [address] [place] [phone] Ileana Herrera, ELSY [address] [place] [phone] [facility] Start: 09-15-2024 End: 09-15-2024 Patient encounter procedure [facility] Comment on above: Primary hypertension (CMS/HCC) (Primary Dx); 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); Mixed hyperlipidemia (CMS/HCC); Prostate cancer screening Start: 09-15-2024 End: 09-15-2025 CBC W Auto Differential panel - Blood CBC and differential Lab Routine 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) Expected: 09/15/2024 (Approximate), Expires: 09/15/2025 [facility] Work Phone: Comment on above: Expected: 09/15/2024 (Approximate), Expires: 09/15/2025 Start: 09-15-2024 End: 09-15-2025 Comprehensive metabolic 2000 panel - Serum or Plasma Comprehensive metabolic panel Lab Routine Primary hypertension (CMS/HCC) Mixed hyperlipidemia (CMS/HCC) Expected: 09/15/2024 (Approximate), Expires: 09/15/2025 [facility] Comment on above: Expected: 09/15/2024 (Approximate), Expires: 09/15/2025 Start: 09-15-2024 End: 09-15-2025 Lipid 1996 panel - Serum or Plasma Lipid panel Lab Routine Mixed hyperlipidemia (CMS/HCC) Expected: 09/15/2024 (Approximate), Expires: 09/15/2025 [facility] Comment on above: Expected: 09/15/2024 (Approximate), Expires: 09/15/2025 Start: 09-15-2024 End: 09-15-2025 Microalbumin/Creatinine panel in random Urine Microalbumin / creatinine, urine ratio Lab Routine Primary hypertension (CMS/HCC) Expected: 09/15/2024 (Approximate), Expires: 09/15/2025 [facility] Comment on above: Expected: 09/15/2024 (Approximate), Expires: 09/15/2025 Start: 09-15-2024 End: 09-15-2025 Prostate specific Ag [Mass/volume] in Serum or Plasma PSA Lab Routine Prostate cancer screening Expected: 09/15/2024 (Approximate), Expires: 09/15/2025 [facility] Comment on above: Expected: 09/15/2024 (Approximate), Expires: 09/15/2025 Start: 09-15-2024 End: 09-15-2025 Urinalysis complete panel - Urine Urinalysis with reflex microscopic (clean catch) Lab Routine Primary hypertension (CMS/HCC) Expected: 09/15/2024 (Approximate), Expires: 09/15/2025 [facility] Comment on above: Expected: 09/15/2024 (Approximate), Expires: 09/15/2025 Start: 08-05-2024 End: 08-05-2024 Patient encounter procedure 08/05/2024 3:30 PM EST Office Visit [facility] [address] [place] [phone] Holly Douglas NP [address] [place] [phone] [facility] Start: 07-11-2024 End: 07-11-2024 Patient encounter procedure 07/11/2024 11:00 AM EST Office Visit [facility] [address] [place] [phone] Chico Hernandez MD [address] [place], [place] [phone] [facility] Start: 02-10-2024 Influenza vaccination [facility] Start: 2015 Administration of varicella zoster vaccine Zoster (Shingles) Vaccine (1 of 2) [facility] Start: 1984 DTaP,Tdap and Td Vaccines (1 - Tdap) DTaP,Tdap and Td Vaccines (1 - Tdap) [facility] Start: 1983 Adult BMI Screening Adult BMI Screen ing [facility] Start: 1977 Depression Screening Depression Scre ening [facility] Start: 1977 Tobacco Screening Tobacco Screening [facility] Start: 1965 Screening for malign ant neoplasm of colon [facility] Immunizations Immunization Date Immunization Notes Care Provider Aster singh 02-26-2021 diphtheria, tetanus toxoids and pertussis vaccine Ileana Herrera NP Work Phone: [facility] NEGATED: Highlighted row has not occurred!08-07-2022 influenza virus vaccine, unspecified formulation Arlen Eppersonmetz [facility] Payers Date Payer Category Payer Private Health Insurance [employer] [id number] 2024 Private Health Insurance [id number] 2022 [facility] [id number] 2022 Unknown [id number] 1965 Unknown [id number] 93 1965 Unknown [id number] 93 1965 Unknown [id number] 93 1965 Unknown [id number] 27 1965 Unknown [id number] 27 1965 Unknown [id number] 259 1965 Unknown [id number] 259 1965 Unknown [id number] 259 1959 Unknown [id number] Social History Date Type Detail Facility Start: 08-07-2022 Tobacco smoking status Never s moked tobacco (finding) [facility] Start: 05-08-2023 End: 11-12-2023 Sex Assigned At Male [facility] Start: 05-27-2024 [facility] History of tobacco use Current smoker [facility] History of tobacco use Cigarette Smoker [facility] Start: 05-08-2023 End: 05-27-2024 Cigarettes smoked current (pack per day) - Reported 0.5 [facility] History of tobacco use Passive smoker [facility] Start: 05-27-2024 Tobacco use and exposure Smokeless tobacco non-user [facility] Start: 05-27-2024 End: 09-15-2024 Alcoholic beverage intake Lifetime non-drinker (finding) [facility] Within the last year , have you been afraid of your partner or ex-partner? No [facility] Are you now , , , , never or living with a partner? [facility] How often to you hav e a drink containing alcohol? Monthly or less [facility] How many standard drinks containing alcohol do you have on a typical day? 1 or 2 [facility] How often do you hav e 6 or more drinks on 1 occasion? Never [facility] How hard is it for y ou to pay for the very basics like food, housing, medical care, and heating Not hard at all [facility] Do you feel stress - tense, restless, nervous, or anxious, or unable to sleep at night because your mind is troubled all the time - these days [OSQ] Not at all [facility] (I/We) worried wheth er (my/our) food would run out before (I/we) got money to buy more. Never true [facility] Start: 1965 Sex assigned at Not on file [facility] Tobacco smoking stat [facility] Tobacco smoking consumption unknown [facility] Start: 01-14-2015 Sex Male (finding) [facility] Functional Status Date Assessment Result Facility 10-20-2022 Functional Status N/A [facility] 08-07-2022 Functional Status N/A [facility] Clinical Notes 08-07-2022 to 09-15-2024 Ileana Herrera NP - 09/15/2024 7:21 PM EDJHON DOHERTY - 09/15/2024 7:00 PM Valentino Herrera NP - 09/15/2024 7:00 PM Valentino Herrera NP - 09/15/2024 7:57 AM EDTPatient Instructions Note Date & Type Note Facility 09-15-2024 History of Presen t illness Narrative Associated Problem(s): History of pulmonary embolism Noted in 05/2024, also hx of DVT's Life long anti coagulation. No chest pain/pressure Both arms and hands are going numbs. Pt believes he is getting arthritis in his shoulders and it is going downwards. Right shoulder is worse pt states that he would not call it painful In his right hand but feels the strain and tingling feeling Pt was without cholesterol and BP medication for a couple months due to not having insurance. Pt just started new job and insurance kicked in on Sunday and can now afford all three meds Images from the original note were not included. Geraldine Potts is a 59 y.o. male presents with chief complaint of No chief complaint on file. HPI: Both arms and hands are going numbs. Pt believes he is getting arthritis in his shoulders and it is going downwards. Right shoulder is worse pt states that he would not call it painful In his right hand but feels the strain and tingling feeling Pt was without cholesterol and BP medication for a couple months due to not having insurance. Pt just started new job and insurance kicked in on Sunday and can now afford all three meds Hypertension This is a chronic problem. The current episode started more than 1 year ago. The problem is unchanged. Associated symptoms include blurred vision. Pertinent negatives include no palpitations, peripheral edema or shortness of breath. There are no associated agents to hypertension. Risk factors for coronary artery disease include male gender. Past treatments include beta blockers. The current treatment provides significant improvement. Compliance problems include medication cost. There is no history of CAD/IL, heart failure or PVD. SUBJECTIVE: MEDICATIONS: Current Outpatient Medications Medication Instructions apixaban (ELIQUIS) 5 mg, Oral, Every 12 hours atorvastatin (LIPITOR) 10 mg, Oral, Daily carvedilol (COREG) 3.125 mg, Oral, 2 times daily with meals ALLERGIES: No Known Allergies REVIEW OF SYMPTOMS: Review of Systems Constitutional: Negative for activity change, appetite change and unexpected weight change. HENT: Negative for ear pain, nosebleeds, sneezing, trouble swallowing and voice change. Eyes: Positive for blurred vision. Negative for pain, discharge and visual disturbance. Respiratory: Negative for apnea, chest tightness, shortness of breath and wheezing. Cardiovascular: Negative for palpitations and leg swelling. Gastrointestinal: Negative for abdominal distention, blood in stool, constipation and diarrhea. Genitourinary: Negative for decreased urine volume, difficulty urinating, dysuria and hematuria. Musculoskeletal: Positive for arthralgias. Skin: Negative for color change. Neurological: Negative for dizziness, tremors and seizures. Psychiatric/Behavioral: Negative for agitation, decreased concentration, hallucinations, self-injury and suicidal ideas. The patient is not nervous/anxious. Hematological: Negative for adenopathy. Does not bruise/bleed easily. Endocrine: Negative for cold intolerance, heat intolerance, polydipsia and polyuria. Allergic/Immunologic: Negative for environmental allergies and food allergies. PAST MEDICAL HISTORY Past Medical History: Diagnosis Date Arthritis Blood pressure elevated without history of HTN Closed fracture of first lumbar vertebra ([facility]/HCC) 11/12/2023 Deep vein thrombosis (DVT) of femoral vein of right lower extremity ([facility]) Edema of left ankle Edema of right ankle Edema of right foot History of blood clots HLD (hyperlipidemia) ([facility]) HTN (hypertension) ([facility]) Past Surgical History: Procedure Laterality Date KNEE SURGERY Right 2006 [employer] family history includes Emphysema in his mother. OBJECTIVE: Visit Vitals BP 148/76 (BP Location: Left arm, Patient Position: Sitting, BP Cuff Size: Large adult) Pulse 68 Temp 97.8 F (Temporal) Resp 18 Wt 222 lb 12.8 oz SpO2 97% BMI 28.61 kg/m Smoking Status Former BSA 2.3 m Physical Exam Vitals and nursing note reviewed. Constitutional: Appearance: Normal appearance. He is not ill-appearing. HENT: Head: Normocephalic. Right Ear: Tympanic membrane, ear canal and external ear normal. Left Ear: Tympanic membrane, ear canal and external ear normal. Nose: Nose normal. Mouth/Throat: Mouth: Mucous membranes are moist. Pharynx: Oropharynx is clear. No oropharyngeal exudate or posterior oropharyngeal erythema. Eyes: Extraocular Movements: Extraocular movements intact. Conjunctiva/sclera: Conjunctivae normal. Neck: Vascular: No carotid bruit. Cardiovascular: Rate and Rhythm: Normal rate and regular rhythm. Pulses: Normal pulses. Heart sounds: Normal heart sounds. Pulmonary: Effort: Pulmonary effort is normal. Breath sounds: Normal breath sounds. No wheezing or rhonchi. Abdominal: General: Bowel sounds are normal. Palpations: Abdomen is soft. There is no mass. Tenderness: There is no abdominal tenderness. There is no guarding. Musculoskeletal: Cervical back: Neck supple. Right lower leg: No edema. Left lower leg: No edema. Comments: MMT 5/5 bilat UE +tightness trapezius region bilat Cervical near full ROM, shoulders decreased ROM Lymphadenopathy: Cervical: No cervical adenopathy. Skin: General: Skin is warm and dry. Capillary Refill: Capillary refill takes 2 to 3 seconds. Neurological: General: No focal deficit present. Mental Status: He is alert. Psychiatric: Mood and Affect: Mood normal. Behavior: Behavior normal. Thought Content: Thought content normal. Judgment: Judgment normal. ASSESSMENT AND PLAN: No follow-ups on file. Problem List Items Addressed This Visit HLD (hyperlipidemia) (CMS/HCC) On statin therapy, has been out for about a month or so Check labs yearly and prn dose changes Relevant Medications atorvastatin (Lipitor) 10 MG tablet Other Relevant Orders Comprehensive metabolic panel Lipid panel HTN (hypertension) (CMS/HCC) - Primary Please check blood pressure daily and record DASH diet Limit caffeine Take medication as directed Contact office if chest pain, pressure, dizziness, shortness of breath, swelling legs Recommend slow position changes Current meds: b devyn restart Relevant Medications carvedilol (Coreg) 3.125 MG tablet Other Relevant Orders Comprehensive metabolic panel Urinalysis with reflex microscopic (clean catch) Microalbumin / creatinine, urine ratio Family history of pulmonary embolism Relevant Medications apixaban (Eliquis) 5 MG tablet History of pulmonary embolism Noted in 05/2024, also hx of DVT's Life long anti coagulation. 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) Relevant Orders CBC and differential History of blood clots Relevant Medications apixaban (Eliquis) 5 MG tablet Associated Problem(s): HLD (hyperlipidemia) (CMS/HCC) On statin therapy, has been out for about a month or so Check labs yearly and prn dose changes Associated Problem(s): HTN (hypertension) (CMS/HCC) Please check blood pressure daily and record DASH diet Limit caffeine Take medication as directed Contact office if chest pain, pressure, dizziness, shortness of breath, swelling legs Recommend slow position changes Current meds: b devyn restart documented in this encounter [facility] 09-15-2024 Instructions Ileana Herrera NP - 09/15/2024 7:00 PM EDT No medication dose changes Check labs around first week for November, fasting 8 hours documented in this encounter [facility] 05-28-2024 History of Presen t illness Narrative . documented in this encounter [facility] 05-27-2024 History of Presen t illness Narrative Associated Problem(s): History of pulmonary embolism Personal and family Hx of DVT's. Pt [...] for Factor V. Is requesting to see general repair mechanic to discuss testing options as well. Referral sent to Dr. Reynoso. Pt ok to return to work on Sunday06/02/2024. Images from the original note were not included. Subjective Patient ID: Geraldine Potts is a 59 y.o. male who presents for Hospital Follow-up. HPI Hx of DVT's. Dr. Torres was prescribing Eliquis. Eliquis was discontinued on 11/2023. Was seen in ED on 05/25 and admitted until 05/27 for DVT and bilateral PE. Inpatient pt was treated with Lovenox for PE. Pt was discharged on Eliquis 10mg PO BID X7 days then 5mg PO BID. Pt reports he has been unable to get Eliquis filled due to insurance issues. Will provide samples in office today and refill RX. Pt reports his rothwer was having testing done for Factor V. IS requesting to see general repair mechanic to discuss testing options as well. Referral sent. Review of Systems Constitutional: Negative for activity change, appetite change, chills, diaphoresis, fatigue, fever and unexpected weight change. HENT: Negative for congestion, ear pain, rhinorrhea, sinus pressure, sinus pain, sneezing, sore throat, trouble swallowing and voice change. Eyes: Negative for visual disturbance. Respiratory: Negative for cough, chest tightness, shortness of breath and wheezing. Cardiovascular: Negative for chest pain, palpitations and leg swelling. Gastrointestinal: Negative for abdominal distention, abdominal pain, blood in stool, constipation, diarrhea and vomiting. Genitourinary: Negative for decreased urine volume, dysuria, flank pain, frequency, hematuria and urgency. Musculoskeletal: Negative for arthralgias, gait problem, joint swelling and myalgias. Skin: Negative for rash. Neurological: Negative for dizziness, tremors, syncope, weakness, light-headedness and headaches. Psychiatric/Behavioral: Negative for decreased concentration and suicidal ideas. The patient is not nervous/anxious. Hematological: Does not bruise/bleed easily. Endocrine: Negative for cold intolerance, heat intolerance, polydipsia, polyphagia and polyuria. Objective Physical Exam Vitals reviewed. Constitutional: Appearance: Normal appearance. HENT: Right Ear: Tympanic membrane normal. Left Ear: Tympanic membrane normal. Nose: Nose normal. Mouth/Throat: Mouth: Mucous membranes are moist. Pharynx: Oropharynx is clear. Eyes: Pupils: Pupils are equal, round, and reactive to light. Cardiovascular: Rate and Rhythm: Normal rate and regular rhythm. Pulses: Normal pulses. Heart sounds: Normal heart sounds. Pulmonary: Effort: Pulmonary effort is normal. Breath sounds: Normal breath sounds. Abdominal: General: Abdomen is flat. Bowel sounds are normal. Palpations: Abdomen is soft. Skin: Capillary Refill: Capillary refill takes less than 2 seconds. Neurological: Mental Status: He is alert and oriented to person, place, and time. Assessment/Plan Problem List Items Addressed This Visit History of blood clots - Primary Relevant Medications apixaban (Eliquis) 5 MG tablet Other Relevant Orders Ambulatory referral to Hematology / Oncology Family history of pulmonary embolism Relevant Medications apixaban (Eliquis) 5 MG tablet Other Relevant Orders Ambulatory referral to Hematology / Oncology History of pulmonary embolism Personal and family Hx of DVT's. Pt [...] for Factor V. Is requesting to see general repair mechanic to discuss testing options as well. Referral sent to Dr. Reynoso. Pt ok to return to work on Sunday06/02/2024. Relevant Orders Ambulatory referral to Hematology / Oncology documented in this encounter [facility] 05-27-2024 Instructions Holly Douglas NP - 05/27/2024 11:30 AM EST Continue taking medication as directed. You will be on this medication for the remainder of your lie. If you develop blood in your urine, stool, or are vomiting blood, PLEASE GO TO ER! If you have a fall, you need to be seen att he E, especially if you hit your head!!! Referral sen to Dr. Knott- Hematology. They will call you! documented in this encounter [facility] 10-23-2022 Note [id number]:[id number] [facility] 10-20-2022 Hospital Discharg e instructions Patient Education [...] Care 08/07/2022 16:03:41 With:MARIEL WILLIAM, Araceli, TAMMIE, [facility] Address: [address] [place] [address] When:1 to 2 weeks Comments:Office will call with date and time of follow-up appt. With:Araceli AGGARWAL Address: [address] [place] [address] Business (1) When: Unknown Comments:Office will call date and time of follow-up appt. [facility] 08-07-2022 Hospital Discharg e instructions Patient Education [...] including vitamins, herbs, eye drops, creams, and [id number] medicines. Any problems you or family members [...] 05/25/2001 Document Revised: 03/20/2018 Document Reviewed: 08/08/2016 [employer] Patient Education 2020 [employer] Follow Up Care 07/11/2022 15:11:10 With:Arlen Littlejohn CNP Address: When:1 to 2 weeks Comments:Following colonoscopy. [facility] Evaluation + Plan note Future Appointments Appointment Date:10/20/2022 08:00:00 AM Scheduled Provider: Location:[facility] Appointment Type:Surgery FT [facility] Evaluation note Diagnosis Primary hypertension (CMS/HCC)- Primary Unspecified essential hypertension Chronic deep vein thrombosis (DVT) of femoral vein of right lower extremity (CMS/HCC) Mixed hyperlipidemia (CMS/HCC) Mixed hyperlipidemia History of blood clots- Primary Family history of pulmonary embolism Family history of other cardiovascular diseases History of pulmonary embolism Personal history of venous thrombosis and embolism [facility] Diagnosis Primary hypertension (CMS/HCC)- Primary Unspecified essential hypertension Chronic deep vein thrombosis (DVT) of femoral vein of right lower extremity (CMS/HCC) Mixed hyperlipidemia (CMS/HCC) Mixed hyperlipidemia History of blood clots- Primary Family history of pulmonary embolism Family history of other cardiovascular diseases History of pulmonary embolism Personal history of venous thrombosis and embolism Mixed hyperlipidemia (CMS/HCC)- Primary Mixed hyperlipidemia Primary hypertension (CMS/HCC) Unspecified essential hypertension [facility] Diagnosis Primary hypertension (CMS/HCC)- Primary Unspecified essential hypertension Chronic deep vein thrombosis (DVT) of femoral vein of right lower extremity (CMS/HCC) Mixed hyperlipidemia (CMS/HCC) Mixed hyperlipidemia History of blood clots- Primary Family history of pulmonary embolism Family history of other cardiovascular diseases History of pulmonary embolism Personal history of venous thrombosis and embolism Mixed hyperlipidemia (CMS/HCC) Mixed hyperlipidemia Primary hypertension (CMS/HCC) Unspecified essential hypertension [facility] Diagnosis Primary hypertension (CMS/HCC)- Primary Unspecified essential hypertension Chronic deep vein thrombosis (DVT) of femoral vein of right lower extremity (CMS/HCC) Mixed hyperlipidemia (CMS/HCC) Mixed hyperlipidemia History of blood clots- Primary Family history of pulmonary embolism Family history of other cardiovascular diseases History of pulmonary embolism Personal history of venous thrombosis and embolism Primary hypertension (CMS/HCC)- Primary Unspecified essential hypertension 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) Mixed hyperlipidemia (CMS/HCC) Mixed hyperlipidemia Prostate cancer screening Special screening for malignant neoplasm of prostate History of pulmonary embolism Personal history of venous thrombosis and embolism History of blood clots Family history of pulmonary embolism Family history of other cardiovascular diseases [facility] Narrative No data available for this section [facility] InstructionsNot on filedocumented in this encounter [facility] No data available for this section [facility] Summary Purpose Family History No Family History Records FoundNo Family History Records FoundNo Family History Records Found Advance Directives No Advanced Directives Records FoundNo Advanced Directives Records FoundNo Advanced Directives Records Found Additional Source Comments Patient Care team informatio n (unrecognized section and content) Seafood Team Member Relationship Specialty Start Date End Date Jefferson Amador MD [address] [place] [phone] PCP - General Family Medicine 03/05/24 Holly Douglas NP [address] [place] [phone] Nurse Practitioner Family Medicine 03/05/24 Seafood Team Member Relationship Specialty Start Date End Date Jefferson Amador MD [address] [place] [phone] PCP - General Family Medicine 03/05/24 Holly Douglas NP [address] [place] [phone] Nurse Practitioner Family Medicine 03/05/24 Seafood Team Member Relationship Specialty Start Date End Date Holly Douglas, ACID CONDITIONING WORKER-[employer] LINING SETTER [address] [place] [place], [place] [id number] PCP - General Nurse Practitioner 05/28/24 Seafood Team Member Relationship Specialty Start Date End Date Jefferson Amador MD [address] [place] [phone] PCP - General Family Medicine 03/05/24 Shaikh Torres MD [address] [place] [phone] PCP - [facility] 06/11/24 Holly Douglas NP [address] [place] [phone] Nurse Practitioner Family Medicine 03/05/24 Seafood Team Member Relationship Specialty Start Date End Date Jefferson Amador MD [address] [place] [phone] PCP - General Family Medicine 03/05/24 Holly Douglas NP [address] [place] [phone] Nurse Practitioner Family Medicine 03/05/24 Seafood Team Member Relationship Specialty Start Date End Date Jefferson Amador MD [address] [place] [phone] PCP - General Family Medicine 03/05/24 Holly Douglas NP [address] [place] [phone] Nurse Practitioner Family Medicine 03/05/24 (unrecognized sect ion and content) No Status Records FoundNo Status Records FoundNo Status Records Found INFORMATION SOURCE (unrecogn ized section and content) DATE CREATED AUTHOR 09/16/2022 [facility] DATE CREATED AUTHOR AUTHOR'S ORGANIZ ATION 10/23/2022 Jorge M[facility] DATE CREATED AUTHOR AUTHOR'S ORGANIZ ATION 09/17/2024 [facility] EPIC Reason for Visit (unrecogniz ed section and content) Reason Comments Hospital Follow-up Reason Onset Date Comments Med Refill 07/25/2024 FOR RECORDS PERTAINING TO PATIENTS WHO ARE [...] BE BASED ON THE PRIMARY CLINICAL RECORDS. [facility] [employer] [facility]. provides no warranty or guarantee of the accuracy or completeness of information in this document.
[2024-12-11 09:52] LABS: Glucose Urine UA NEGATIVE (NEGATIVE)
[2024-12-11 09:57] LABS: Hematocrit 47.5 % (42.0-54.0); Hemoglobin 16.1 g/dL (14.0-18.0); Immature Granulocytes Abs Auto 0.01 10^3/uL (0.00-0.03); Immature Granulocytes Pct Auto 0.2 % (0.0-0.5); Lymphocytes Absolute Auto 2.0 10^3/uL (1.2-3.8); Mean Corpuscular HGB Conc 33.9 g/dL (29.9-35.2); Mean Corpuscular Hemoglobin 33.0 pg (25.9-34.0); Mean Corpuscular Volume 97.3 fL (80.0-94.0); Platelet Count 224 10^3/uL (150-450); Red Blood Count 4.88 10^6/uL (4.70-6.10); White Blood Count 5.8 10^3/uL (4.0-11.0)
[2024-12-11 10:10] LABS: Alanine Aminotransferase 33 U/L (16-63); Albumin Globulin Ratio 1.1; Albumin Level 3.6 g/dL (3.4-5.0); Alkaline Phosphatase 137 U/L (46-116); Anion Gap 12.6; Aspartate Amino Transferase 22 U/L (15-37); Blood Urea Nitrogen 17.0 mg/dL (7.0-18.0); Calcium 8.9 mg/dL (8.5-10.1); Carbon Dioxide 27.7 mmol/L (21.0-32.0); Chloride 107 mmol/L (98-107); Cholesterol 146 mg/dL (<=200); Estimated GFR (African America >60 (>=60 mL/min/1.73m^2); Estimated GFR (Non-African Ame >60 (>=60 mL/min/1.73m^2); Globulin 3.3 g/dL; Glucose 103 mg/dL (74-106); HDL Cholesterol 55 mg/dL (40-60); Potassium 4.3 mmol/L (3.5-5.1); Sodium 143 mmol/L (136-145); Total Protein 6.9 g/dL (6.4-8.2); Triglycerides 52 mg/dL (<=150); VLDL CHOLESTEROL 10.4 mg/dL
== END 2024-12-11 09:01 | disposition home or self-care (01) ==
PROVIDERS: PCP Nurse Practitioner; Visit Provider Nurse Practitioner
DX: E78.2 Mixed hyperlipidemia (principal); I10 Essential (primary) hypertension; I82.511 Chronic embolism and thrombosis of right femoral vein; Z12.5 Encounter for screening for malignant neoplasm of prostate
CPT/HCPCS: 36415; 80053; 80061; 81003; 82043; 82570; 85025; G0103